=== PATIENT | male | born 1960 | race Caucasian/White ===

== ENCOUNTER 2018-11-18 22:45 | Inpatient (IN) | payer MEDICARE, MEDICAID, SELFPAY ==
--- NOTE | 2018-11-18 22:49 | PDOC.MHCN ---
Date of service: 11/18/18 Time of Service: 22:56 Mental Health Crisis Note Presenting Issue How did you arrive at the ED and why did you come: Pt arrived to the ED via VSP after VSP was serving him a citation to court and he began making comments that he was suicidal Precipitating Factors Pt kept making comments that he was going to kill himself would not contract for safety and attempted to hang himself while in the ER. Comments that Pt made were I don't care if I am here, or in half-way I'm going to kill myself. They will all be at my . It doesn't matter if I'm her, or in half-way I'm going to take my life. While in the ED in his room he was left unattended and when this clinician walked into his room he had his scarf tried tightly around his neck and his face was red and beginning to turn purple. Pt asked me Why did you have to stop me? Pt was speaking to his sister and reportedly was talking about how he was going to try to kill himself again. I addressed this with Vignesh and told him that his conversations need to be appropriate or he would not have this as a privilege. He said he was just speaking to his sister. I informed him it did not matter who he was speaking to if the conversations were not appropriate that he would lose the privilege of speaking to his sister. Disposition BEHAVIOR: Impulsive and tearful and resisting and then cooperative. EYE CONTACT: fair MOOD: depressed and hopeless AFFECT: flat and tearful APPETITE: Pt reports that he goes 3-4 days without eating and then will eat a lot. SLEEP(trouble falling/staying asleep: Pt reports that he is up all night playing video games and then sleeps all day. Plan No beds are avilable tonight so Pt will be moved to Med Surg. There was a huddle with Care Management, nurse, Nursing air cargo ground crew supervisor and Doctor as well as this clinician. [facility] - [facility] - Full [facility] - Octavio - Full Meredith Hidalgo - Beds avaialble but not tonight [place] - Ariel - Not taking any EE's [place] - Luther - Not tonight [facility] - Raj - full Provisional Diagnosis Depressive D/O NOS Signature Clinician's Name/Title: Amanda Ying MS, [facility] Emergency Services Clinician
--- NOTE | 2018-11-18 23:05 | ED.GENADUL_ITS ---
Discharge Plan Disposition Patient Disposition: [facility] INPATIENT Condition: Stable Discharge Details Chief Complaint: PsychEval Clinical Impression: Suicidal ideation Reason For Visit: SUICIDAL IDEATION Admit Date/Time: 11/19/18 02:32 Admit Provider: Florin Murrieta Attending Provider: Florin Murrieta Primary Care Provider: Unknown,Unknown ED Midlevel Provider: Adriana Marte ED Provider: Marianne Carlos Discharge Data Discharge Physician: Marianne Carlos Medical Decision Making 58-year-old male with a history of bipolar disorder and previous suicide attempt who presents with suicidal ideation. Patient placed scissors to his neck threatening suicide after given a police citation for harassment of a family member. Shortly after arrival to ED, patient was found by staff to be pulling a scarf tightly around his neck, his face turning blue and attempting to strangle himself. Multiple staff members went to the room and were able to remove the scar from around his neck. Patient was noted to be breathing normally without any evidence of injury to neck, no conjunctival hemorrhages, no crepitus and speaking full sentences. Patient does not demonstrate good insight into his illness as he did find his behavior to his family to be harrassment and after mental health spoke with his family they are very nervous around him. Pt is medically cleared. D/w mental health. EE completed as pt is a suicide risk based on his behavior today and in the ER. There are no beds available [facility] but there are potential beds at [place] and [place]. [facility] available. Will admit to floor awaiting bed placement. 0230 -- d/w hospitalist - accepts pt for admission. Sister in [place] called to state that he frequently lies about what is going on his life and that their mother killed herself when he was 15, and after she spoke to him in ER [facility], he is continuing saying that he will kill himself. Medical Records Medical records reviewed: Yes I reviewed the patient's medical records. Lab Data Lab results reviewed: Yes I reviewed the patient's lab results. Laboratory Tests Range/Units 11/18/18 11/18/18 11/19/18 23:55 23:55 00:39 WBC (4.4-10.8) k/cumm 6.84 RBC (4.50-6.00) m/cumm 5.08 Hgb (13.5-17.5) g/dL 15.3 Hct (40.0-50.0) % 44.3 MCV (80-95) fL 87.2 MCH (27.0-33.0) pg 30.1 MCHC (32.0-36.0) g/dL 34.5 RDW (11.8-14.1) % 13.5 Plt Count (130-400) x1000/uL 188 MPV (8.0-11.0) fL 11.2 H Immature Gran % 0.1 Neutrophils % 80.9 Lymphocytes % 12.7 Monocytes % 5.8 Eosinophils % 0.1 Basophils % 0.4 Absolute Neutrophils (1.2-6.7) k/cumm 5.52 Absolute Lymphocytes (1.2-3.4) k/cumm 0.87 L Absolute Monocytes (0.11-0.7) k/cumm 0.40 Absolute Eosinophils (0.0-0.7) k/cumm 0.01 Absolute Basophils (0.0-0.2) k/cumm 0.03 Sodium (136-145) mmol/L 139 Potassium (3.5-5.1) mmol/L 3.7 Chloride (98-107) mmol/L 102 Carbon Dioxide (21.0-32.0) mmol/L 25.2 Anion Gap (3-11) mmol/L 11.8 H BUN (7-18) mg/dL 17 Creatinine (0.70-1.30) mg/dL 1.26 Estimated GFR/1.73 m2 (mL/min/1.73m2) 59.20 Glucose (70-100) mg/dL 195 H Calcium (8.5-10.1) mg/dL 9.7 Urine Opiates Screen (Negative) Negative Urine Methadone Screen (Negative) Negative Ur Barbiturates Screen (Negative) Negative Ur Tricyclics Screen (Negative) Negative Ur Amphetamines Screen (Negative) Negative U Benzodiazepines Scrn (Negative) Negative Urine Cocaine Screen (Negative) Negative Ur THC Screen (Negative) Negative Ethyl Alcohol (<3) mg/dL < 3.0 HPI General Mode of arrival: ambulatory . Date/Time Provider Initiated Documentation: 11/18/18 22:46 . Limitations to Documentation: no limitations . Information obtained by: patient . HPI Narrative: Patient is a 58-year-old male with history of bipolar disorder who presents for suicidal ideation. Patient recently was given a citation for questionable harassment of his niece at her gymnasium and and had an outburst with the police chief deputy who gave the patient the citation in which patient grabbed a pair of scissors and held it to his throat with threats of suicide. Patient is also expressed that he does not care if he lives or dies, whether it is in halfway or anywhere it would not stop him from killing himself. Patient had also stated that his family would be attending his soon. Patient expressed that he has been having arguments with his sister and family recently, specifically on Facebook in which he has posted information about family on website which his sister did not agree with. Patient denies any homicidal ideation. He denies any alcohol or drug use. He denies any hallucinations. Patient admits to a previous history of suicide attempt in the s in which she attempted to hang himself. Related Data Home Medications Medication Instructions Recorded Confirmed Unknown [No Known Home Meds] 11/19/18 11/19/18 Allergies Allergy/AdvReac Type Severity Reaction Status Date / Time No Known Allergies Allergy Unverified 11/19/18 00:48 Review of Systems Review of Systems All systems reviewed & are unremarkable except as noted in HPI and below Constitutional Reports as per HPI, Denies chills and Denies fever(s) Eyes Denies blurry vision ENT Denies dizziness, Denies sore throat and Denies throat swelling Cardiovascular Denies chest pain and Denies dyspnea Respiratory Denies cough and Denies dyspnea Gastrointestinal Denies abdominal pain, Denies diarrhea and Denies vomiting Genitourinary Denies hematuria and Denies dysuria Musculoskeletal Denies back pain and Denies numbness Integumentary/Breasts Denies lesions and Denies rash Neurologic Denies dizziness, Denies focal weakness and Denies numbness Psychiatric Reports suicidal ideation Allergic/Immunologic Denies throat swelling [facility] Medical History History of suicide attempt (Chronic) Bipolar disorder (Chronic) Depression (Chronic) Surgical History History of eye surgery (Acute) Family History Mother Suicide Social History Smoking and Tabacco status: Never alcohol intake: never substance use type: does not use Exam Const General: cooperative, healthy appearing and no acute distress HENMT Head: normal to inspection Face and sinus: normal facial exam Eyes General: appearance normal, both eyes and all related structures Pupils: PERRL EOM: EOM intact bilaterally Neck Neck: normal visual inspection Lymphatic: no lymphadenopathy noted Resp Effort & Inspection: normal respiratory effort and able to speak in complete sentences Auscultation: clear to auscultation bilaterally Cardio Rate: regular rate Rhythm: regular rhythm GI Inspection: normal to inspection Palpation: soft, not firm, not rigid and nontender Auscultation: normal bowel sounds Male General Exam: Yes normal external exam Skin General skin exam: no rashes or lesions noted Neuro General: alert, awake and oriented x3 Cognition: normal cognition Speech: speech normal Motor: muscle tone normal throughout Sensory Exam: no sensory deficits noted Extrem General: normal to inspection, full ROM and no edema Psych Appearance: grossly normal Mental Status: mental status grossly normal Speech and Movement: speech and movement normal Affect: anxious affect Attitude: cooperative Thought Content: suicidality Insight: limited Judgment: limited
[2018-11-19] LABS: Abs Immature Grans 0.01 k/cumm (0.0-0.09); Absolute Basophil Count 0.03 k/cumm (0.0-0.2); Absolute Eosinophil Count 0.01 k/cumm (0.0-0.7); Absolute Lymphocyte Count 0.87 k/cumm (1.2-3.4); Absolute Neutrophil Count 5.52 k/cumm (1.2-6.7); Basophils % 0.4; Eosinophils % 0.1; HCT 44.3 % (40.0-50.0); HGB 15.3 g/dL (13.5-17.5); Immature Grans % 0.1; Lymphocytes % 12.7; Mean Corp. HGB Concentration 34.5 g/dL (32.0-36.0); Mean Corpuscular Hemoglobin 30.1 pg (27.0-33.0); Mean Corpuscular Volume 87.2 fL (80-95); Mean Platelet Volume 11.2 fL (8.0-11.0); Monocytes % 5.8; Neutrophils % 80.9; Platelet Count 188 x1000/uL (130-400); RBC 5.08 m/cumm (4.50-6.00); RBC Distribution Width 13.5 % (11.8-14.1); White Blood Cell Count 6.84 k/cumm (4.4-10.8)
--- NOTE | 2018-11-19 00:04 | NUR.NOTE ---
shortly after arrival patient attempted to strangle himself with a personal towel. patient struggled and eventually let go of towel, restraint protocol per [facility] policy initiated. patient has been under 1:1 observer Nursing Note:
[2018-11-19 00:09] LABS: Anion Gap 11.8 mmol/L (3-11); BUN 17 mg/dL (7-18); CO2 25.2 mmol/L (21.0-32.0); CREATININE 1.26 mg/dL (0.70-1.30); Calcium 9.7 mg/dL (8.5-10.1); Chloride 102 mmol/L (98-107); Glucose 195 mg/dL (70-100); Potassium 3.7 mmol/L (3.5-5.1); Sodium 139 mmol/L (136-145)
[2018-11-19 00:10] VITALS: BP 126/85; PULSE 98; RESP 18; TEMP 36.9; O2SAT 98
--- NOTE | 2018-11-19 00:16 | PDOC.ERCMPRO ---
- If Service Date Differs Date of service: 11/19/18 Time of Service: 00:16 Care Management Progress Note Brief Narrative: Vignesh presents with VSP. He was served a citation by [facility] as a member of the community has filed for a restraining order against him. Vignesh held scissors to his neck while at home with VSP present and talked about SI. He was evaluated by SHITAL Patel, and was not able to contract for safety so was therefore transferred to [facility] voluntarily. Upon arriving at [facility] with [facility], P left Vignesh unattended and Vignesh was found to have a scarf tightly around his neck attempting to strangle himself. When SHITAL aPtel, went in to see Vignesh after him attempting to do so he asked why did you stop me?. Due to Vignesh showing impulsive behaviors SHITAL Patel, states he will be EE'd. Vignesh at baseline resides alone in the community, he reports that he is originally from [place]. Vignesh is a JACKSPOOLER client through [facility] and his manager of case is Michael Celis and Mikayla Krause is his counselor. Vignesh states that he has been hospitalized before for Psychiatric difficulties, he reports that he takes no medications at this time. INVOLUNTARY FOR INPATIENT PSYCHIATRIC STABILIZATION: Current behaviors: refer to Acuity Level System: Vignesh has engaged with staff, he has been cooperative. Vignesh has also been impulsive while in the Emergency Department. Huddle Participants:Amanda ([facility]), Giovanni (RN), Nany (RN Special Education Paraprofessional), Dr. Carlos Time and Date: 11/19/18 @ 0020 Safety plan has been established with patient, and care team, to adhere to patient goals, identify restrictions based on behavioral status, address nutrition, and determine allowed personal belongings, tools for hygiene and personal care. Determine level of activity including ambulation, level of supervision, visitors, and determine privileges based on behaviors and level of engagement by pt. SAFETY PLAN: 1. Will remain on suicide precautions and in paper clothes. 2. Will remain in room under direct supervision of one-on-one staff at all times provided by EARLINE, CARLOS automotive collision estimator. 3. May have paper cups, plates, finger foods. 4. Follow [facility] Management of the Admitted Behavioral Health Patient policy. 5. Comfort bath system only. 6. No personal belongings 7. Visitors - None at this time. It has been reported that Vignesh has been threatening his family. 8. Activities - May have coloring supplies such as crayons and paper 9. TV - May have TV and remote if available 10. Bathroom - Bathroom privileges with staff escort. Patient is currently involuntarily at [facility] and seeking inpatient admission when a bed becomes available. [facility] Frontline Terminal Press Operator will continue seeking placement. Please contact the Scoop Filler Junior Php Developer ([phone]) and [facility] Terminal Press Operator ([phone]) for any needed changes in the Safety Plan. Safety plan has been provided to interdepartmental care team including Clinical Coordinator, Nursing Special Education Paraprofessional.
[2018-11-19 00:17] LABS: ETHANOL BLOOD < 3.0 mg/dL (<3)
--- NOTE | 2018-11-19 00:38 | CMPROGNOTE_ITS ---
- If Service Date Differs Date of service: 11/19/18 Time of Service: 00:16 Care Management Progress Note Brief Narrative: Vignesh presents with VSP. He was served a citation by [facility] as a member of the community has filed for a restraining order against him. Vignesh held scissors to his neck while at home with VSP present and talked about SI. He was evaluated by SHITAL Patel, and was not able to contract for safety so was therefore transferred to [facility] voluntarily. Upon arriving at [facility] with [facility], P left Vignesh unattended and Vignesh was found to have a scarf tightly around his neck attempting to strangle himself. When SHITAL Patel, went in to see Vignehs after him attempting to do so he asked why did you stop me?. Due to Vignesh showing impulsive behaviors SHITAL Patel, states he will be EE'd. Vignesh at baseline resides alone in the community, he reports that he is originally from [place]. Vignesh is a AERODYNAMICS TEACHER client through [facility] and his case checker is Michael Celis and Mikayla Krause is his counselor. Vignesh states that he has been hospitalized before for Psychiatric difficulties, he reports that he takes no medications at this time. INVOLUNTARY FOR INPATIENT PSYCHIATRIC STABILIZATION: Current behaviors: refer to Acuity Level System: Vignesh has engaged with staff, he has been cooperative. Vignesh has also been impulsive while in the Emergency Department. Huddle Participants:Amanda ([facility]), Giovanni (RN), Nany (RN Helmet Hat Puncher), Dr. Carlos Time and Date: 11/19/18 @ 0020 Safety plan has been established with patient, and care team, to adhere to patient goals, identify restrictions based on behavioral status, address nutrition, and determine allowed personal belongings, tools for hygiene and personal care. Determine level of activity including ambulation, level of supervision, visitors, and determine privileges based on behaviors and level of engagement by pt. SAFETY PLAN: 1. Will remain on suicide precautions and in paper clothes. 2. Will remain in room under direct supervision of one-on-one staff at all times provided by EARLINE, CARLOS senior cisco network engineer. 3. May have paper cups, plates, finger foods. 4. Follow [facility] Management of the Admitted Behavioral Health Patient policy. 5. Comfort bath system only. 6. No personal belongings 7. Visitors - None at this time. It has been reported that Vignesh has been threatening his family. 8. Activities - May have coloring supplies such as crayons and paper 9. TV - May have TV and remote if available 10. Bathroom - Bathroom privileges with staff escort. Patient is currently involuntarily at [facility] and seeking inpatient admission when a bed becomes available. [facility] Frontline Clean Energy Policy Analyst will continue seeking placement. Please contact the Fire Equipment Inspector Loading Unit Tool Setter ([phone]) and [facility] Clean Energy Policy Analyst ([phone]) for any needed changes in the Safety Plan. Safety plan has been provided to interdepartmental care team including Clinical Coordinator, Nursing Helmet Hat Puncher.
--- NOTE | 2018-11-19 00:41 | NUR.NOTE ---
restraints removed from patient, used toliet. patient to be admitted to behavioral health unit Nursing Note:
[2018-11-19 00:55] LABS: *AMPHETAMINES SCREEN URINE Negative (Negative); *BARBITURATES SCREEN URINE Negative (Negative); *BENZODIAZEPINES SCREEN URINE Negative (Negative); Cannabinoids THC Negative (Negative); Cocaine Screen,Urine Negative (Negative); METHADONE URINE SCREEN Negative (Negative); OPIATES URINE SCREEN Negative (Negative)
[2018-11-19 00:57] LABS: Tricyclic Antidepressants Negative (Negative)
--- NOTE | 2018-11-19 01:28 | NUR.NOTE ---
patient sitting with 1:1 observer, patient speaking on phone with family Nursing Note:
--- NOTE | 2018-11-19 02:10 | PDOC.MHCN_ITS ---
Date of service: 11/18/18 Time of Service: 22:56 Mental Health Crisis Note Presenting Issue How did you arrive at the ED and why did you come: Pt arrived to the ED via VSP after VSP was serving him a citation to court and he began making comments that he was suicidal Precipitating Factors Pt kept making comments that he was going to kill himself would not contract for safety and attempted to hang himself while in the ER. Comments that Pt made were I don't care if I am here, or in skilled nursing I'm going to kill myself. They will all be at my . It doesn't matter if I'm her, or in skilled nursing I'm going to take my life. While in the ED in his room he was left unattended and when this clinician walked into his room he had his scarf tried tightly around his neck and his face was red and beginning to turn purple. Pt asked me Why did you have to stop me? Pt was speaking to his sister and reportedly was talking about how he was going to try to kill himself again. I addressed this with Vignesh and told him that his conversations need to be appropriate or he would not have this as a privilege. He said he was just speaking to his sister. I informed him it did not matter who he was speaking to if the conversations were not appropriate that he would lose the privilege of speaking to his sister. Disposition BEHAVIOR: Impulsive and tearful and resisting and then cooperative. EYE CONTACT: fair MOOD: depressed and hopeless AFFECT: flat and tearful APPETITE: Pt reports that he goes 3-4 days without eating and then will eat a lot. SLEEP(trouble falling/staying asleep: Pt reports that he is up all night playing video games and then sleeps all day. Plan No beds are avilable tonight so Pt will be moved to Med Surg. There was a huddle with Care Management, nurse, Nursing telephone solicitor supervisor and Doctor as well as this clinician. [facility] - Duncan - Full [facility] - Octavio - Full [facility] H[facility] - Beds avaialble but not tonight [place] - Ariel - Not taking any EE's [place] - Luther - Not tonight [facility] - Raj - full Provisional Diagnosis Depressive D/O NOS Signature Clinician's Name/Title: Amanda Ying MS, [facility] Emergency Services Clinician
--- NOTE | 2018-11-19 03:00 | NUR.NOTE ---
patient has been cooperative and report given to med/surge RN Nursing Note:
--- NOTE | 2018-11-19 03:03 | HPE_ITS ---
Date of service: 11/19/18 Time of Service: 03:02 Assessment and Plan (1) Suicide attempt: Current visit: Yes Status: Acute Patient be admitted overnight at [facility] under involuntary admission pending a second psychiatric interview. Recommendation is for him to be placed for inpatient psychiatric treatment due to persistent pervasive thoughts of suicide with high risk for potential for completion of suicide given his recent behavior. (2) Major depression, recurrent: Current visit: Yes Status: Acute Patient will need to be started on antidepressants however because of his history of bipolar disorder judicious selection of appropriate mood stabilizing medications needs to be made under an inpatient psychiatric admission to monitor for any exacerbations of forrest History of Present Illness Chief Complaint: Suicidal behavior, depression Narrative: See Dr. Carlos's thorough ER admission note for details. In summary this 58-year-old male with a history of bipolar disorder and previous suicide attempts who has not been on any medications for his mental health problems and recent history was brought to the emergency department after making suicidal gestures with placing scissors to his neck after he been given a police citation for harassment of a family member. He was brought to the emergency room for further evaluation and referral for inpatient psychiatric treatment. While in the emergency room he attempted to strangle himself with a scarf but the ER staff intervened and were able to remove the scar from around his neck. After removal of the scar if Dr. Carlos found no evidence of injury to his neck and was having normal respirations afterwards. Further information was obtained from his sister who who called from [place] stating that the patient frequently lies about the events in his life and she also revealed that their mother killed herself when t he patient was only 15 years old. Patient continues to make statements indicating that he has intentions of killing himself and for that reason an involuntary admission was placed after an emergency evaluation examination by Dr. Carlos was carried out. Local mental health officials including Amanda Ying as well as [facility] immigration case manager Tomeka Crowley were involved in his evaluation as well. Patient is being admitted overnight to [facility] as there are no inpatient psychiatric beds currently available. Because of been placed to [facility] and to [facility]. Patient has been medically cleared by Dr. Carlos for inpatient psychiatric treatment. Screening labs including CBC, urine drug screen, blood alcohol level, BMP. Urine for drug abuse was negative for methadone, benzodiazepines, cocaine, amphetamines, THC, opiates, barbiturates, TCA. Blood alcohol level is less than 3. BMP was normal with the exception of a glucose level that was elevated at 195. CBC was within normal limits. Review of Systems Review of Systems All systems reviewed & are unremarkable except as noted in HPI and below PFSH Medical History History of suicide attempt (Chronic) Bipolar disorder (Chronic) Depression (Chronic) Surgical History History of eye surgery (Acute) Family History Mother Suicide Social History Smoking and Tabacco status: Never alcohol intake: never substance use type: does not use Meds Home Medications Medication Instructions Recorded Confirmed Type Unknown [No Known Home Meds] 11/19/18 11/19/18 History Allergies Allergy/AdvReac Type Severity Reaction Status Date / Time No Known Allergies Allergy Unverified 11/19/18 00:48 Exam Const General: cooperative and healthy appearing [facility] Head: normal to inspection Face and sinus: normal facial exam Eyes General: appearance normal, both eyes and all related structures Alignment and Position: alignment normal Periorbital: periorbital findings normal Eyelids: eyelids normal Pupils: PERRL EOM: EOM intact bilaterally Neck Neck: normal visual inspection, full ROM, no lymphadenopathy, trachea midline and no JVD Thyroid: thyroid normal Chest Chest: normal inspection of the chest and normal palpation of entire chest wall Resp Effort & Inspection: normal respiratory effort and able to speak in complete sentences Auscultation: clear to auscultation bilaterally Cardio Jugular venous pressure: no JVD Palpation: normal PMI Rate: regular rate Rhythm: regular rhythm Heart Sounds: S1 normal, S2 normal, normal, physiologic split S2 and no murmurs GI Inspection: normal to inspection Palpation: soft, not firm, not rigid and nontender Auscultation: normal bowel sounds Back/Spine/Pelvis Cervical Spine: normal cervical lordosis Thoracic/Lumbar Spine: thoracic and lumbar spine normal to inspection Skin General skin exam: no rashes or lesions noted Neuro General: alert, awake and oriented x3 Cognition: normal cognition Speech: speech normal Motor: muscle tone normal throughout Extrem General: normal to inspection, full ROM and no edema Psych Appearance: well kempt Mental Status: mental status grossly normal (i.e. no delirium, alert and oriented to person/place/circumstance/time) and other (tearful) Speech and Movement: speech and movement normal Mood: anxious mood and other (tearful) Affect: sad and anxious affect Attitude: cooperative and avoids eye contact Thought Process: circumstantial Thought Content: suicidality Insight: poor Judgment: poor Results Labs : 11/18/18 23:55 11/18/18 23:55 Laboratory Results - last 24 hr 11/18/18 11/18/18 11/19/18 23:55 23:55 00:39 WBC 6.84 RBC 5.08 Hgb 15.3 Hct 44.3 MCV 87.2 MCH 30.1 MCHC 34.5 RDW 13.5 Plt Count 188 MPV 11.2 H Immature Gran % 0.1 Neutrophils % 80.9 Lymphocytes % 12.7 Monocytes % 5.8 Eosinophils % 0.1 Basophils % 0.4 Absolute Neutrophils 5.52 Absolute Lymphocytes 0.87 L Absolute Monocytes 0.40 Absolute Eosinophils 0.01 Absolute Basophils 0.03 Sodium 139 Potassium 3.7 Chloride 102 Carbon Dioxide 25.2 Anion Gap 11.8 H BUN 17 Creatinine 1.26 Estimated GFR/1.73 m2 59.20 Glucose 195 H Calcium 9.7 Urine Opiates Screen Negative Urine Methadone Screen Negative Ur Barbiturates Screen Negative Ur Tricyclics Screen Negative Ur Amphetamines Screen Negative U Benzodiazepines Scrn Negative Urine Cocaine Screen Negative Ur THC Screen Negative Ethyl Alcohol < 3.0 Last Vital Signs Temp 36.9 C 11/19/18 00:10 Pulse 98 H 11/19/18 00:10 Resp 18 11/19/18 00:10 BP 126/85 11/19/18 00:10 Pulse Ox 98 11/19/18 00:10
[2018-11-19 03:20] VITALS: BP 118/68; PULSE 68; RESP 24; TEMP 37.2; O2SAT 98
[2018-11-19 07:38] VITALS: BP 116/73; PULSE 65; RESP 16; TEMP 36.8; O2SAT 99
--- NOTE | 2018-11-19 13:12 | PDOC.MHCN ---
Date of service: 11/25/18 Time of Service: 09:54 Mental Health Crisis Note Presenting Issue How did you arrive at the ED and why did you come: Patient was brought to the Ed after telling police he was suicidal. Precipitating Factors Patient was experiencing high levels of stress as a result of arguing with family members and being served with a summons for violating a restraining order from a worker at [employer] multiple times. In the Ed patient attempted to strangle himself and struggled with staff when they attempted to remove the scarf he had tied around his neck. Patient currently denies S/I, and H/I. He makes appropriate eye contact and is fully oriented. Patient does present with some short term memory loss which is typical of his presentation. He is eating and taking fluids, but has declined medication prescribed to help him sleep. Disposition BEHAVIOR: Patient has been polite and cooperating with staff. Patient is manipulative and has not demonstrated complete honesty with this screener . He denies his actions except in regards to his sister and neice. He lacks insight and willingness to engage in community treatment. EYE CONTACT: The Patient made and maintained appropriate eye contact. MOOD: The patient has a mixed mood, expressing some depression, frustration and anxiety. AFFECT: Patient's affect was unremarkable. APPETITE: Patient is eating food and drinking fluids. SLEEP(trouble falling/staying asleep: Mixed. Plan The patient is to kept on EE status until appropriate treatment can be obtained. Signature Clinician's Name/Title: Magdi Gomes BA, [facility].
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
--- NOTE | 2018-11-19 15:42 | PDOC.CMPRO ---
Care Management Progress Note INVOLUNTARY FOR INPATIENT PSYCHIATRIC STABILIZATION: Current behaviors: refer to Acuity Level System: Vignesh has engaged with staff, he has been cooperative. Vignesh has also been impulsive while in the Emergency Department. Huddle Participants: Magdi ([facility]), Adalberto (RN), Kit (RN Lamp Wirer), Santa, (ANIMAL DOCTOR), Sri, (CM), Sahra, (RNCC) Time and Date: 11/19/18 @ 1130 Safety plan has been established with patient, and care team, to adhere to patient goals, identify restrictions based on behavioral status, address nutrition, and determine allowed personal belongings, tools for hygiene and personal care. Determine level of activity including ambulation, level of supervision, visitors, and determine privileges based on behaviors and level of engagement by pt. Vignesh fully engaged with this commercial insurance underwriter, he struggled to absorb some information especially central to limitations of safety planning and timing of process. He had the expectation he might be able to leave by 1200 due to feeling he had presented with good behavior and shown remorse for his actions prior to today. He stated this process makes him feel more like harming himself. He reported he had not slept and appeared to perseverate on certain topics such as his court hearing, care for his felines at home(LEASING REPRESENTATIVE attending to issue), IPOD, phone contact with his sister and his reading glasses. He reported he is currently fighting with his sister, Alma Nunez (reports having another sister named Krystal) and described in detail what he would want said to her when notifying her he is currently at [facility]: Vignesh says he's O.K. and doing fine if you want to talk to him. He described his IPOD in great detail including a charging belt he wears, how it accesses the internet, pictures and country music. CM agreed to consider Vignesh's requests with huddle participants and encouraged Vignesh to continue to show appropriate behavior and build trust with the staff. JIMENA reviewed EE process, 2nd Cert and explained how Vignesh is under the umbrella of [facility] and his disposition would be coordinated by [facility]. CM reviewed safety plan considerations and explained that planning was directly correlated with acuity level. Huddle participants were in agreement Vignesh could be permitted to have his glasses, but will hold off on additional privileges until Vignesh is observed for a longer period of time as he was found to have paper strings in his socks tied in a noose this morning and still appears to be impulsive. Vignesh was talking fast and earnest in his vocal delivery. He interrupted and spoke over this commercial insurance underwriter when his questions were attempted to be answered. JIMENA provided copy of safety plan to Vignesh and his [id number] 2nd certification process and meeting with a [facility] psychiatrist via tele-monitor would be forthcoming. SAFETY PLAN: 1. Will remain on suicide precautions and in paper clothes. 2. Will remain in room under direct supervision of one-on-one staff at all times provided by EARLINE, ADMINISTRATION PROFESSIONAL pen or pencil assembly machine operator. 3. May have paper cups, plates, finger foods. 4. Follow [facility] Management of the Admitted Behavioral Health Patient policy. 5. Comfort bath system only. 6. No personal belongings; may have eyeglasses with expectation they will be removed in event of behavioral escalation 7. No visitors at this time, no phone contact at this time. 8. Activities - May have coloring supplies such as crayons and paper 9. TV - May have TV and remote if available Starla [facility] reports only facility with bed availability is [facility]. Magdi faxed referral. Karina Peck called to report their current milieu is too acute to accept Vignesh at this time as he would require one-on-one support. Patient is currently involuntarily at [facility] and seeking inpatient admission when a bed becomes available. [facility] Frontline Skip Pitman will continue seeking placement. Please contact the Scalp Treatment Operator Stoner Hand ([phone]) and [facility] Skip Pitman ([phone]) for any needed changes in the Safety Plan. Safety plan has been provided to interdepartmental care team including Clinical Coordinator, Nursing Lamp Wirer.
[2018-11-19 16:39] VITALS: BP 166/82; PULSE 81; RESP 18; TEMP 36.8; O2SAT 96
--- NOTE | 2018-11-19 17:27 | CMPROGNOTE_ITS ---
Care Management Progress Note INVOLUNTARY FOR INPATIENT PSYCHIATRIC STABILIZATION: Current behaviors: refer to Acuity Level System: Vignesh has engaged with staff, he has been cooperative. Vignesh has also been impulsive while in the Emergency Department. Huddle Participants: Magdi ([facility]), Adalberto (RN), Kit (RN Measurement Psychologist), Santa, (MAILING MACHINE OPERATOR), Sri, (CM), Sahra, (RNCC) Time and Date: 11/19/18 @ 1130 Safety plan has been established with patient, and care team, to adhere to patient goals, identify restrictions based on behavioral status, address nutrition, and determine allowed personal belongings, tools for hygiene and personal care. Determine level of activity including ambulation, level of supervision, visitors, and determine privileges based on behaviors and level of engagement by pt. Vignesh fully engaged with this rfp writer, he struggled to absorb some information especially central to limitations of safety planning and timing of process. He had the expectation he might be able to leave by 1200 due to feeling he had presented with good behavior and shown remorse for his actions prior to today. He stated this process makes him feel more like harming himself. He reported he had not slept and appeared to perseverate on certain topics such as his court hearing, care for his felines at home(FLOOR CASHIER attending to issue), IPOD, phone contact with his sister and his reading glasses. He reported he is currently fighting with his sister, Alma Nunez (reports having another sister named Krystal) and described in detail what he would want said to her when notifying her he is currently at [facility]: Vignesh says he's O.K. and doing fine if you want to talk to him. He described his IPOD in great detail including a charging belt he wears, how it accesses the internet, pictures and country music. CM agreed to consider Vignesh's requests with huddle participants and encouraged Vignesh to continue to show appropriate behavior and build trust with the staff. JIMENA reviewed EE process, 2nd Cert and explained how Vignesh is under the umbrella of [facility] and his disposition would be coordinated by [facility]. CM reviewed safety plan considerations and explained that planning was directly correlated with acuity level. Huddle participants were in agreement Vignesh could be permitted to have his glasses, but will hold off on additional privileges until Vignesh is observed for a longer period of time as he was found to have paper strings in his socks tied in a noose this morning and still appears to be impulsive. Vignesh was talking fast and earnest in his vocal delivery. He interrupted and spoke over this rfp writer when his questions were attempted to be answered. JIMENA provided copy of safety plan to Vignesh and his [id number] 2nd certification process and meeting with a [facility] psychiatrist via tele-monitor would be forthcoming. SAFETY PLAN: 1. Will remain on suicide precautions and in paper clothes. 2. Will remain in room under direct supervision of one-on-one staff at all times provided by EARLINE, COMSEC MANAGER excavator backhoe operator. 3. May have paper cups, plates, finger foods. 4. Follow [facility] Management of the Admitted Behavioral Health Patient policy. 5. Comfort bath system only. 6. No personal belongings; may have eyeglasses with expectation they will be removed in event of behavioral escalation 7. No visitors at this time, no phone contact at this time. 8. Activities - May have coloring supplies such as crayons and paper 9. TV - May have TV and remote if available Starla [facility] reports only facility with bed availability is [facility]. Magdi faxed referral. Karina Peck called to report their current milieu is too acute to accept Vignesh at this time as he would require one-on-one support. Patient is currently involuntarily at [facility] and seeking inpatient admission when a bed becomes available. [facility] Frontline Substation Inspector will continue seeking placement. Please contact the Audio Visual Arts Director Rate Inserter ([phone]) and [facility] Substation Inspector ([phone]) for any needed changes in the Safety Plan. Safety plan has been provided to interdepartmental care team including Clinical Coordinator, Nursing Measurement Psychologist.
[2018-11-19 19:51] VITALS: BP 152/99; PULSE 64; RESP 19; TEMP 36.4; O2SAT 97
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
[2018-11-20 00:12] VITALS: BP 148/89; PULSE 72; RESP 18; TEMP 36.2; O2SAT 98
[2018-11-20 03:22] VITALS: BP 115/62; PULSE 69; RESP 16; TEMP 36.8; O2SAT 96
--- NOTE | 2018-11-20 06:11 | NUR.NOTE ---
Nursing Note: At approximately 0415 cadre called me into the room. I found pt sitting on edge of his bed crying, he stood to talk to me but did not approach me. He is very upset about a few things: crying because his cats are alone and may not be cared for, angry his sister may have access to his house and ipod (made reference to it being illegal for her to use his ipod to remove something from social media), is frustrated about the flow of his care, speed of decisions being made and process necessary, concerned that staff are ignoring him, that he will be here too long or longer than someone originally promised him (will his time here count towards the promised 2 weeks to get better - I do not know who promised him this). He was fixated on each of these thoughts, and when I answered one question he would ask the same thing again or go back to another we had just discussed. I left the room once and he came to the doorway, past the cadre and stood there repeating these questions. I was not able to redirect him with normal social cues nor with being more direct. He stopped fixating and sat back down on his bed when I was heavily direct and told him that I needed him to sit on his bed, I had some work to do, I have relayed all of his concerns to the charge nurse and he will discuss all of this with his mental health team after 8 am. I then left the room and pt remained on his bed and watched TV. He has been calm and not crying since, it is now 0620. Charge nurse notified of all of his concerns and behavior and I will hand off written notes along with careplan to [facility] nurse.
--- NOTE | 2018-11-20 09:27 | W.INMHPGNOTE ---
Date of service: 11/20/18 Time of Service: 09:27 Mental Health Crisis Note Presenting Issue How did you arrive at the ED and why did you come: Vignesh arrived at [facility] due to a suicide attempt. He was emotionally dysregulated and made another suicide attempt upon being admitted to the emergency room. An application for involuntary treatment was filed with the Department of Mental Health. That application was certified appropriately by a psychiatrist on 11-19-18. Precipitating Factors Vignesh denies current suicidal ideation, planning, or intent. He typically perseverates on emotions and is going through some anxiety about family relationships. These family stressors seem to be on-going. Perseverative thought patterns with impulsive decisions and behaviors have led to further misunderstandings, poor communication, and some difficulties with engaging in community or treatment resources offered to him. Disposition BEHAVIOR: animated, perseverative, repetitious, restless EYE CONTACT: good MOOD: anxious AFFECT: slightly elevated/easily agitated APPETITE: fair SLEEP(trouble falling/staying asleep: reports irregular sleep patterns mostly related to falling asleep Plan Vignesh will remain at [facility] until bed placement is available. He will discuss community resources and work with SHIP'S MASTER case workers through the weekend to help him create a routine of programming he can engage in that will help him cope with his anxiety and anger that relates to stressors in his life he has difficulty coping with. This will help him with increasing engagement in treatment resources that can be a part of his safety plan needed. From this, it is hoped that he may be able to be discharged next week if bed placement continues to be a challenge. For now, Taty from [facility] reports he is too acute for their unit, Millie from [facility] is unable to offer a bed, [facility] is not accepting admissions to psych, [facility] is full ([facility])(, Shilpa from [facility] is unable to take a level one bed at this time. Signature Clinician's Name/Title: Navjot Rico MA [facility]
--- NOTE | 2018-11-20 09:46 | MHPN_ITS ---
Date of service: 11/20/18 Time of Service: 09:27 Mental Health Crisis Note Presenting Issue How did you arrive at the ED and why did you come: Vignesh arrived at [facility] due to a suicide attempt. He was emotionally dysregulated and made another suicide attempt upon being admitted to the emergency room. An application for involuntary treatment was filed with the Department of Mental Health. That application was certified appropriately by a psychiatrist on 11-19-18. Precipitating Factors Vignesh denies current suicidal ideation, planning, or intent. He typically perseverates on emotions and is going through some anxiety about family relationships. These family stressors seem to be on-going. Perseverative thought patterns with impulsive decisions and behaviors have led to further misunderstandings, poor communication, and some difficulties with engaging in community or treatment resources offered to him. Disposition BEHAVIOR: animated, perseverative, repetitious, restless EYE CONTACT: good MOOD: anxious AFFECT: slightly elevated/easily agitated APPETITE: fair SLEEP(trouble falling/staying asleep: reports irregular sleep patterns mostly related to falling asleep Plan Vignesh will remain at [facility] until bed placement is available. He will discuss community resources and work with SENIOR PRODUCT MANAGER case workers through the weekend to help him create a routine of programming he can engage in that will help him cope with his anxiety and anger that relates to stressors in his life he has difficulty coping with. This will help him with increasing engagement in treatment resources that can be a part of his safety plan needed. From this, it is hoped that he may be able to be discharged next week if bed placement continues to be a challenge. For now, Taty from [facility] reports he is too acute for their unit, Millie from [facility] is unable to offer a bed, [facility] is not accepting admissions to psych, [facility] is full (Meena)(, Shilpa from [facility] is unable to take a level one bed at this time. Signature Clinician's Name/Title: Navjot Rico MA [facility]
--- NOTE | 2018-11-20 12:25 | PHARADMIT ---
Addendum entered by Maury Boyle III 11/25/18 16:17: Remains on EE Status, awaiting transfer to psych facility. VS-OK No Labs, refused troponin, Has begun to cooperate and eat. Original Note: Addendum entered by Maury Boyle III 11/24/18 14:16: Patient here on E status. Refusing to eat or drink. CM working diligently towards placement at a psych facility. VS-OK HR-105 No Labs Taking no medication at this time. Original Note: Admission Pharmacy Clinical Review suicidal ideation Code Status Full Code Current Weight 73.7 kg Renally Cleared and Narrow Therapeutic Index Meds Crcl ~65.00 mL/min current meds okay QTc Value / Action Taken n/a BP Control, Fever BP 115/62 afebrile Electrolytes reviewed within normal limits DVT Prophylaxis none Opiate Usage / Scheduled Bowel Regimen Ordered no/prn Plt/SCr for Heparin / Enoxaparin plt 188 SCr 1.26 INR for Warfarin n/a H/H stable, WBC/Bands h/h 15.3/44.3 wbc 6.84 Antibiotic appropriateness n/a Cultures and Sensitivities n/a Surgical ABX d/c within 24 hr n/a DM control / Insulin Dosing BG 195 none Heart Failure (Check EF%) (TRIXIE's, B-Block, Diuretics) none IV to PO Switch n/a Home Meds Reviewed no known home meds Home Meds Not Ordered no known home meds Comments waiting for placement
[2018-11-20] MEDS: Acetaminophen 325 MG TAB PO (13:25)
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
--- NOTE | 2018-11-20 14:17 | W.PM.PROGNOT ---
Documented by User: Shilpa Morgan NP 11/20/18 14:32 Date of Service Date of service: 11/20/18 Time of Service: 14:21 Assessment and Plan (1) Major depression, recurrent: Start date: 11/20/18 Start time: 14:19 Current visit: Yes Status: Acute Patient will need to be started on antidepressants however because of his history of bipolar disorder judicious selection of appropriate mood stabilizing medications needs to be made under an inpatient psychiatric admission to monitor for any exacerbations of forrest (2) Suicide attempt: Start date: 11/20/18 Start time: 14:19 Current visit: Yes Status: Acute admitted to [facility] under involuntary admission pending a bed in psych facility. Recommendation is for him to be placed for inpatient psychiatric treatment due to persistent pervasive thoughts of suicide with high risk for potential for completion of suicide given his recent behavior. (3) Urine finding: Start date: 11/20/18 Start time: 14:20 Current visit: Yes Status: Acute c/o burning with urination, U/A ordered, will follow up (4) Discharge planning issues: Start date: 11/20/18 Start time: 14:20 Current visit: Yes Status: Acute recommend placement in psych facility Subjective Patient reports: feels better Interval history since last seen: 58-year-old male with a history of bipolar disorder and previous suicide attempts who has not been on any medications for his mental health problems and recent history was brought to the emergency department after making suicidal gestures with placing scissors to his neck after he been given a police citation for harassment of a family member. He then attempted to strangle himself in the ED with a scarf. He was placed on involuntary admission for referral to inpatient psychiatric treatment. Patient has not been sleeping, he has not been prescribed any medications and is currently not receiving medications. Patient was not willing to go voluntary. 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 Yesterday he took his draw string out of his paper gown and fashioned into a noose and hid it in his sock. Today he states he is feeling better. Denies SI. He concentrates on one topic and continues with it until done despite being asked questions. He did c/o burning on urination. Denies sexual activity, denies drainage, UDS was done in ED, so I have ordered a U/A, unlikely this is an infection given hx of manipulation. We are waiting placement at this time. Exam Const General: cooperative and healthy appearing HENMT Head: normal to inspection Face and sinus: normal facial exam Eyes General: appearance normal, both eyes and all related structures Alignment and Position: alignment normal Periorbital: periorbital findings normal Eyelids: eyelids normal Pupils: PERRL EOM: EOM intact bilaterally Neck Neck: normal visual inspection, full ROM, no lymphadenopathy, trachea midline and no JVD Thyroid: thyroid normal Chest Chest: normal inspection of the chest and normal palpation of entire chest wall Resp Effort & Inspection: normal respiratory effort and able to speak in complete sentences Auscultation: clear to auscultation bilaterally Cardio Jugular venous pressure: no JVD Palpation: normal PMI Rate: regular rate Rhythm: regular rhythm Heart Sounds: S1 normal, S2 normal, normal, physiologic split S2 and no murmurs GI Inspection: normal to inspection Palpation: soft, not firm, not rigid and nontender Auscultation: normal bowel sounds Back/Spine/Pelvis Cervical Spine: normal cervical lordosis Thoracic/Lumbar Spine: thoracic and lumbar spine normal to inspection Skin General skin exam: no rashes or lesions noted Neuro General: alert, awake and oriented x3 Cognition: normal cognition Speech: speech normal Motor: muscle tone normal throughout Extrem General: normal to inspection, full ROM and no edema Psych Appearance: well kempt Mental Status: other (tearful) Speech and Movement: speech and movement normal Mood: anxious mood, manic mood and other (tearful) Affect: sad, animated and anxious affect Attitude: cooperative and avoids eye contact Thought Process: circumstantial and confabulating Thought Content: obsessions and suicidality Insight: poor Judgment: poor Objective Objective Clinical Data: Vital Signs Temperature 36.8 C 11/20/18 03:22 Temperature Source Skin 11/20/18 03:22 Pulse 69 11/20/18 03:22 Pulse Rhythm Regular 11/20/18 11:34 Respiratory Rate 16 11/20/18 03:22 Respiratory Effort 11/20/18 11:34 Respiratory Depth Normal 11/20/18 11:34 Respiratory Pattern Normal 11/20/18 11:34 Blood Pressure 115/62 11/20/18 03:22 Pulse Oximetry 96 11/20/18 03:22 Oxygen Delivery Method Room Air 11/20/18 03:22 Oxygen Flow Rate 0 11/20/18 03:22 Pain Level 1 11/20/18 13:25 Intake & Output 11/19/18 11/20/18 11/20/18 23:59 11:59 23:59 Intake Total 480 / 480 730 / 970 240 / 970 Balance 480 / 480 730 / 970 240 / 970 Weight 73.7 kg Intake: Oral 480 / 480 730 / 970 240 / 970 Other: Urine Color Yellow Urine Appearance Clear Clear Comment UOP x 1 reported. uop x 1. ind in room Stool Size Moderate Stool Characteristics Soft Formed Voiding Methods Toilet Toilet Laboratory Results WBC 6.84 k/cumm (4.4-10.8) 11/18/18 23:55 RBC 5.08 m/cumm (4.50-6.00) 11/18/18 23:55 Hgb 15.3 g/dL (13.5-17.5) 11/18/18 23:55 Hct 44.3 % (40.0-50.0) 11/18/18 23:55 MCV 87.2 fL (80-95) 11/18/18 23:55 MCH 30.1 pg (27.0-33.0) 11/18/18 23:55 MCHC 34.5 g/dL (32.0-36.0) 11/18/18 23:55 RDW 13.5 % (11.8-14.1) 11/18/18 23:55 Plt Count 188 x1000/uL (130-400) 11/18/18 23:55 MPV 11.2 fL (8.0-11.0) H 11/18/18 23:55 Immature Gran % 0.1 11/18/18 23:55 Neutrophils % 80.9 11/18/18 23:55 Lymphocytes % 12.7 11/18/18 23:55 Monocytes % 5.8 11/18/18 23:55 Eosinophils % 0.1 11/18/18 23:55 Basophils % 0.4 11/18/18 23:55 Absolute Neutrophils 5.52 k/cumm (1.2-6.7) 11/18/18 23:55 Absolute Lymphocytes 0.87 k/cumm (1.2-3.4) L 11/18/18 23:55 Absolute Monocytes 0.40 k/cumm (0.11-0.7) 11/18/18 23:55 Absolute Eosinophils 0.01 k/cumm (0.0-0.7) 11/18/18 23:55 Absolute Basophils 0.03 k/cumm (0.0-0.2) 11/18/18 23:55 Sodium 139 mmol/L (136-145) 11/18/18 23:55 Potassium 3.7 mmol/L (3.5-5.1) 11/18/18 23:55 Chloride 102 mmol/L (98-107) 11/18/18 23:55 Carbon Dioxide 25.2 mmol/L (21.0-32.0) 11/18/18 23:55 Anion Gap 11.8 mmol/L (3-11) H 11/18/18 23:55 BUN 17 mg/dL (7-18) 11/18/18 23:55 Creatinine 1.26 mg/dL (0.70-1.30) 11/18/18 23:55 Estimated GFR/1.73 m2 59.20 (mL/min/1.73m2) 11/18/18 23:55 Glucose 195 mg/dL (70-100) H 11/18/18 23:55 Calcium 9.7 mg/dL (8.5-10.1) 11/18/18 23:55 TSH 2.40 uIU/mL (0.358-3.74) 11/18/18 23:55 Urine Opiates Screen Negative (Negative) 11/19/18 00:39 Urine Methadone Screen Negative (Negative) 11/19/18 00:39 Ur Barbiturates Screen Negative (Negative) 11/19/18 00:39 Ur Tricyclics Screen Negative (Negative) 11/19/18 00:39 Ur Amphetamines Screen Negative (Negative) 11/19/18 00:39 U Benzodiazepines Scrn Negative (Negative) 11/19/18 00:39 Urine Cocaine Screen Negative (Negative) 11/19/18 00:39 Ur THC Screen Negative (Negative) 11/19/18 00:39 Ethyl Alcohol < 3.0 mg/dL (<3) 11/18/18 23:55 Documented by User: Raymond Jones MD 11/21/18 17:54
[2018-11-20 14:20] LABS: Bilirubin Negative (Negative); Blood Negative (Negative); Clarity Clear; Glucose 100 mg/dL (Negative); Ketones Trace mg/dL (Negative); Leukocyte Esterase Negative (Negative); Nitrite Negative (Negative); Specific Gravity >= 1.030 (1.005-1.025)
[2018-11-20 15:35] VITALS: BP 139/71; PULSE 83; RESP 19; TEMP 36.7; O2SAT 95
--- NOTE | 2018-11-20 16:01 | NUR.NOTE ---
Nursing Note: went to check patient again, asked him how his headacahe was, or if he had any other complaints, He stated that his headache had resolved and he had no complaints of pain elsewhere
[2018-11-20 19:08] VITALS: BP 109/69; PULSE 70; RESP 18; TEMP 36.2; O2SAT 98
--- NOTE | 2018-11-20 21:16 | PDOC.MHCN ---
Date of service: 11/20/18 Time of Service: 21:17 Mental Health Crisis Note Presenting Issue How did you arrive at the ED and why did you come: Vignesh arrived at [facility] due to a suicide attempt. He was emotionally dysregulated and made another suicide attempt upon being admitted to the emergency room. An application for involuntary treatment was filed with the Department of Mental Health. That application was certified appropriately by a psychiatrist on 11-19-18. Precipitating Factors Vignesh reports some frustration with his Taco Maker early last week, family conflict, and negative community interactions as precipitating factors to his suicidal behavior. He denies SI/HI and stated he is serious about starting to engage in more therapeutic groups [facility] has to offer. However, as the conversation continued he stated, When Thursday rolls around I am not going to say that I can be safe at home, but I can say that I will try. Disposition BEHAVIOR: The client's behavior was appropriate. He was reserved and polite. Very talkative. Weepy at times when conversation content was emotionally charged. EYE CONTACT: Excellent eye contact. MOOD: Pleasant and cooperative. AFFECT: Animated and engaged. APPETITE: Client shared he had eaten a lot over the course of the day. SLEEP(trouble falling/staying asleep: No comment. Plan Vignesh will remain on involuntary status until a bed is found. A psychiatric placement will continue to be sought. Currently, [facility] has no beds or anticipated discharges, [facility] [place] [facility], [facility]--no beds, [facility] is not expecting a discharge until Thursday, [facility] has no beds, and [facility] has no bed availability. WATERSHED MANAGER staff will continue to assess Vignesh and support him in stabilization and explore outpatient therapeutic resource options. Signature Clinician's Name/Title: Ysabel Pate BA WATERSHED MANAGER Taco Maker
--- NOTE | 2018-11-20 21:51 | PDOC.MHCN_ITS ---
Date of service: 11/20/18 Time of Service: 21:17 Mental Health Crisis Note Presenting Issue How did you arrive at the ED and why did you come: Vignesh arrived at [facility] due to a suicide attempt. He was emotionally dysregulated and made another suicide attempt upon being admitted to the emergency room. An application for involuntary treatment was filed with the Department of Mental Health. That application was certified appropriately by a psychiatrist on 11-19-18. Precipitating Factors Vignesh reports some frustration with his Insole Reinforcer early last week, family conflict, and negative community interactions as precipitating factors to his suicidal behavior. He denies SI/HI and stated he is serious about starting to engage in more therapeutic groups [facility] has to offer. However, as the conversation continued he stated, When Thursday rolls around I am not going to say that I can be safe at home, but I can say that I will try. Disposition BEHAVIOR: The client's behavior was appropriate. He was reserved and polite. Very talkative. Weepy at times when conversation content was emotionally charged. EYE CONTACT: Excellent eye contact. MOOD: Pleasant and cooperative. AFFECT: Animated and engaged. APPETITE: Client shared he had eaten a lot over the course of the day. SLEEP(trouble falling/staying asleep: No comment. Plan Vignesh will remain on involuntary status until a bed is found. A psychiatric placement will continue to be sought. Currently, [facility] has no beds or anticipated discharges, [facility] has no beds, [facility]--no beds, [facility] is not expecting a discharge until Thursday, [facility] has no beds, and [facility] has no bed availability. PERINATAL NURSE staff will continue to assess Vignesh and support him in stabilization and explore outpatient therapeutic resource options. Signature Clinician's Name/Title: Ysabel Pate BA PERINATAL NURSE Insole Reinforcer
[2018-11-21] MEDS: Acetaminophen 325 MG TAB PO (02:38)
[2018-11-21 03:25] VITALS: BP 111/70; PULSE 63; RESP 16; TEMP 36.6; O2SAT 97
[2018-11-21 07:54] VITALS: BP 112/75; PULSE 58; RESP 20; TEMP 36.4; O2SAT 97
[2018-11-21 11:05] VITALS: BP 121/68; PULSE 56; RESP 20; TEMP 36.5; O2SAT 96
--- NOTE | 2018-11-21 14:28 | PDOC.CMPRO ---
Care Management Progress Note Care Management Progress Note INVOLUNTARY FOR INPATIENT PSYCHIATRIC STABILIZATION: Vignesh's presentation has been consistent throughout his stay and is likely close to his baseline per historical reports. Due to Vignesh's impulsivity and patterns of behavioral responses and emotional triggers, his safety plan will remain consistent at this time and further privileges will not be permitted. CM continues to consider Vignesh's requests with huddle participants and continues to encourage Vignesh to continue to show appropriate behavior and build trust with staff. Due to high acuity and sustained interpersonal communication issues and emotional presentation it is believed Vignesh has not shown acceptable stabilization to increase privileges, thus no changes to safety plan at this time. Huddle Participants: Navjot ([facility]), Jaye(RN Technology Infusion Specialist), Sri, (CM), Sahra, (RNCC) Safety plan has been established with patient, and care team, to adhere to patient goals, identify restrictions based on behavioral status, address nutrition, and determine allowed personal belongings, tools for hygiene and personal care. Determine level of activity including ambulation, level of supervision, visitors, and determine privileges based on behaviors and level of engagement by patient. Vignesh will remain at [facility] until bed placement is available. He will continue to discuss community resources and work with SUPERVISOR ASSEMBLY STOCK case workers (Q12) through the weekend to help him create a routine of programming he can engage in that will help him cope with his anxiety and anger that relates to stressors in his life he has difficulty coping with. This will help him with increasing engagement in treatment resources that can be a part of his safety plan needed. From this, it is hoped that he may be able to be discharged next week if bed placement continues to be a challenge. SAFETY PLAN: 1. Will remain on suicide precautions and in paper clothes. 2. Will remain in room under direct supervision of one-on-one staff at all times provided by EARLINE, COT ASSEMBLER senior policy associate. 3. May have paper cups, plates, finger foods. 4. Follow [facility] Management of the Admitted Behavioral Health Patient policy. 5. Comfort bath system only. 6. No personal belongings; may have eyeglasses with expectation they will be removed in event of behavioral escalation 7. No visitors at this time, no phone contact at this time. 8. Activities - May have coloring supplies such as crayons and paper 9. TV - May have TV and remote if available Bed Availability: Per SUPERVISOR ASSEMBLY STOCK: Vignesh will remain on involuntary status until a bed is found. A psychiatric placement will continue to be sought. Currently, [facility] has no beds or anticipated discharges, [facility] has no beds, [facility]--no beds, [facility] is not expecting a discharge until Thursday, [facility] has no beds, and [facility] has no bed availability. SUPERVISOR ASSEMBLY STOCK staff will continue to assess Vignesh and support him in stabilization and explore outpatient therapeutic resource options. Patient is currently involuntarily at [facility] and seeking inpatient admission when a bed becomes available. [facility] Frontline Sugar Cane Farm Manager will continue seeking placement. Please contact the Sugar Cane Farm Manager Budget Specialist ([phone]) and [facility] Sugar Cane Farm Manager ([phone]) for any needed changes in the Safety Plan. Safety plan has been provided to interdepartmental care team including Clinical Coordinator, Nursing Technology Infusion Specialist.
--- NOTE | 2018-11-21 14:47 | CMPROGNOTE_ITS ---
Care Management Progress Note Care Management Progress Note INVOLUNTARY FOR INPATIENT PSYCHIATRIC STABILIZATION: Vignesh's presentation has been consistent throughout his stay and is likely close to his baseline per historical reports. Due to Vignesh's impulsivity and patterns of behavioral responses and emotional triggers, his safety plan will remain consistent at this time and further privileges will not be permitted. CM continues to consider Vignesh's requests with huddle participants and continues to encourage Vignesh to continue to show appropriate behavior and build trust with staff. Due to high acuity and sustained interpersonal communication issues and emotional presentation it is believed Vignesh has not shown acceptable stabilization to increase privileges, thus no changes to safety plan at this time. Huddle Participants: Navjot ([facility]), Jaye(RN Maintenance Carpenter), Sri, (CM), Sahra, (RNCC) Safety plan has been established with patient, and care team, to adhere to patient goals, identify restrictions based on behavioral status, address nutrition, and determine allowed personal belongings, tools for hygiene and personal care. Determine level of activity including ambulation, level of supervision, visitors, and determine privileges based on behaviors and level of engagement by patient. Vignesh will remain at [facility] until bed placement is available. He will continue to discuss community resources and work with TRAVEL OCCUPATIONAL THERAPIST case workers (Q12) through the weekend to help him create a routine of programming he can engage in that will help him cope with his anxiety and anger that relates to stressors in his life he has difficulty coping with. This will help him with increasing engagement in treatment resources that can be a part of his safety plan needed. From this, it is hoped that he may be able to be discharged next week if bed placement continues to be a challenge. SAFETY PLAN: 1. Will remain on suicide precautions and in paper clothes. 2. Will remain in room under direct supervision of one-on-one staff at all times provided by EARLINE, CAN REPAIRER phone operator. 3. May have paper cups, plates, finger foods. 4. Follow [facility] Management of the Admitted Behavioral Health Patient policy. 5. Comfort bath system only. 6. No personal belongings; may have eyeglasses with expectation they will be removed in event of behavioral escalation 7. No visitors at this time, no phone contact at this time. 8. Activities - May have coloring supplies such as crayons and paper 9. TV - May have TV and remote if available Bed Availability: Per TRAVEL OCCUPATIONAL THERAPIST: Vignesh will remain on involuntary status until a bed is found. A psychiatric placement will continue to be sought. Currently, [facility] has no beds or anticipated discharges, [facility] has no beds, [facility]--no beds, [facility] is not expecting a discharge until Thursday, [facility] has no beds, and [facility] has no bed availability. TRAVEL OCCUPATIONAL THERAPIST staff will continue to assess Vignesh and support him in stabilization and explore outpatient therapeutic resource options. Patient is currently involuntarily at [facility] and seeking inpatient admission when a bed becomes available. [facility] Frontline Tailor Helper will continue seeking placement. Please contact the Auditor Supervisor Facilities Maintenance Manager ([phone]) and [facility] Tailor Helper ([phone]) for any needed changes in the Safety Plan. Safety plan has been provided to interdepartmental care team including Clinical Coordinator, Nursing Maintenance Carpenter.
[2018-11-21 15:30] VITALS: BP 123/76; PULSE 65; RESP 18; TEMP 37; O2SAT 97
--- NOTE | 2018-11-21 18:00 | PGE_ITS ---
Date of Service Date of service: 11/21/18 Time of Service: 17:55 Assessment and Plan (1) Suicide attempt: Current visit: Yes Status: Acute Involuntary admission for 2 suicidal gestures as noted above, currently under evaluation by mental health for potential placement versus safety for discharge. Continue to monitor with one-to-one observation, and current suicide precautions. Will await final evaluation by mental health. Subjective Interval history since last seen: 58-year-old male with a history of bipolar disorder, as well as depression with previous suicide attempts, admitted from [facility] Emergency Department on 11/19 following a suicide attempt. Mr. Alaniz has psychiatric history as noted above, and has not been on any medications for his mental health problems. He was seen in the ED after making suicidal gestures while placing scissors to his neck after being issued a citation by the police for harassment of a family member. He then attempted to strangle himself in the ED with a scarf. He was placed on involuntary admission for referral to inpatient psychiatric treatment. Patient appears improved, now denying any suicidality. Mental Health and Care Management actively following. No apparent placement options today. Exam Narrative Exam Narrative: General: Patient appears comfortable, AAOX3, NAD Psych: Normal mood and affect. Objective Objective Clinical Data: Vital Signs Temperature 37 C 11/21/18 15:30 Temperature Source Tympanic 11/21/18 15:30 Pulse 65 11/21/18 15:30 Pulse Rhythm Regular 11/21/18 17:48 Respiratory Rate 18 11/21/18 15:30 Respiratory Effort 11/21/18 17:48 Respiratory Depth Normal 11/21/18 17:48 Respiratory Pattern Normal 11/21/18 17:48 Blood Pressure 123/76 11/21/18 15:30 Pulse Oximetry 97 11/21/18 15:30 Oxygen Delivery Method Room Air 11/21/18 15:30 Oxygen Flow Rate 0 11/21/18 15:30 Pain Level 0 11/21/18 15:30 Comment 11/21/18 03:25 Intake & Output 11/20/18 11/21/18 11/21/18 23:59 11:59 23:59 Intake Total 720 / 1450 240 / 490 250 / 490 Balance 720 / 1450 240 / 490 250 / 490 Intake: Oral 720 / 1450 240 / 490 250 / 490 Other: Urine Color Yellow Urine Appearance Clear Clear Comment urine x1 Voiding Methods Toilet Toilet Toilet Laboratory Results WBC 6.84 k/cumm (4.4-10.8) 11/18/18 23:55 RBC 5.08 m/cumm (4.50-6.00) 11/18/18 23:55 Hgb 15.3 g/dL (13.5-17.5) 11/18/18 23:55 Hct 44.3 % (40.0-50.0) 11/18/18 23:55 MCV 87.2 fL (80-95) 11/18/18 23:55 MCH 30.1 pg (27.0-33.0) 11/18/18 23:55 MCHC 34.5 g/dL (32.0-36.0) 11/18/18 23:55 RDW 13.5 % (11.8-14.1) 11/18/18 23:55 Plt Count 188 x1000/uL (130-400) 11/18/18 23:55 MPV 11.2 fL (8.0-11.0) H 11/18/18 23:55 Immature Gran % 0.1 11/18/18 23:55 Neutrophils % 80.9 11/18/18 23:55 Lymphocytes % 12.7 11/18/18 23:55 Monocytes % 5.8 11/18/18 23:55 Eosinophils % 0.1 11/18/18 23:55 Basophils % 0.4 11/18/18 23:55 Absolute Neutrophils 5.52 k/cumm (1.2-6.7) 11/18/18 23:55 Absolute Lymphocytes 0.87 k/cumm (1.2-3.4) L 11/18/18 23:55 Absolute Monocytes 0.40 k/cumm (0.11-0.7) 11/18/18 23:55 Absolute Eosinophils 0.01 k/cumm (0.0-0.7) 11/18/18 23:55 Absolute Basophils 0.03 k/cumm (0.0-0.2) 11/18/18 23:55 Sodium 139 mmol/L (136-145) 11/18/18 23:55 Potassium 3.7 mmol/L (3.5-5.1) 11/18/18 23:55 Chloride 102 mmol/L (98-107) 11/18/18 23:55 Carbon Dioxide 25.2 mmol/L (21.0-32.0) 11/18/18 23:55 Anion Gap 11.8 mmol/L (3-11) H 11/18/18 23:55 BUN 17 mg/dL (7-18) 11/18/18 23:55 Creatinine 1.26 mg/dL (0.70-1.30) 11/18/18 23:55 Estimated GFR/1.73 m2 59.20 (mL/min/1.73m2) 11/18/18 23:55 Glucose 195 mg/dL (70-100) H 11/18/18 23:55 Calcium 9.7 mg/dL (8.5-10.1) 11/18/18 23:55 TSH 2.40 uIU/mL (0.358-3.74) 11/18/18 23:55 Urine Color Yellow (Yellow) 11/20/18 14:00 Urine Clarity Clear 11/20/18 14:00 Urine pH 6.0 (5-8) 11/20/18 14:00 Ur Specific [place] >= 1.030 (1.005-1.025) H 11/20/18 14:00 Urine Protein Negative mg/dL (Negative) 11/20/18 14:00 Urine Ketones Trace mg/dL (Negative) H 11/20/18 14:00 Urine Blood Negative (Negative) 11/20/18 14:00 Urine Nitrite Negative (Negative) 11/20/18 14:00 Urine Bilirubin Negative (Negative) 11/20/18 14:00 Urine Urobilinogen 2.0 EU/dL (Up TO 0.2) H 11/20/18 14:00 Ur Leukocyte Esterase Negative (Negative) 11/20/18 14:00 Urine Glucose 100 mg/dL (Negative) 11/20/18 14:00 Urine Opiates Screen Negative (Negative) 11/19/18 00:39 Urine Methadone Screen Negative (Negative) 11/19/18 00:39 Ur Barbiturates Screen Negative (Negative) 11/19/18 00:39 Ur Tricyclics Screen Negative (Negative) 11/19/18 00:39 Ur Amphetamines Screen Negative (Negative) 11/19/18 00:39 U Benzodiazepines Scrn Negative (Negative) 11/19/18 00:39 Urine Cocaine Screen Negative (Negative) 11/19/18 00:39 Ur THC Screen Negative (Negative) 11/19/18 00:39 Ethyl Alcohol < 3.0 mg/dL (<3) 11/18/18 23:55
--- NOTE | 2018-11-21 18:16 | PDOC.MHCN ---
Date of service: 11/21/18 Time of Service: 09:00 Mental Health Crisis Note Presenting Issue How did you arrive at the ED and why did you come: Vignesh arrived at [facility] due to a suicide attempt. He was emotionally dysregulated and made another suicide attempt upon being admitted to the emergency room. An application for involuntary treatment was filed with the Department of Mental Health. That application was certified appropriately by a psychiatrist on 11-19-18. Precipitating Factors Currently the client denies HI/SI. His social interactions and communication skills are lacking. His body language is animated but atypical The client spoke extensively about his cats and making sure they are being fed. He also spoke at length about his intentions of engaging in more therapeutic groups and increasing the frequency of his therapy appointments. These subjects are appearing to become perseverative in nature. Disposition BEHAVIOR: Appropriate. EYE CONTACT: Good eye contact. MOOD: Pleasant and cooperative. AFFECT: Engaged and animated. APPETITE: Good appetite. SLEEP(trouble falling/staying asleep: Client reported he slept well during the night. Plan Vignesh will remain on involuntary status until a bed is found. A psychiatric placement will continue to be sought. Currently, [facility] has no beds or anticipated discharges, [facility] has no beds, [facility]--no beds, [facility] is not expecting a discharge until Thursday, [facility] has no beds, and [facility] has no bed availability. SHAKE LOADER staff will continue to assess Vignesh and support him in stabilization and explore outpatient therapeutic resource options. Signature Clinician's Name/Title: Ysabel Pate BA SHAKE LOADER Assembler Hydraulic Backhoe
--- NOTE | 2018-11-21 18:47 | PDOC.MHCN_ITS ---
Date of service: 11/21/18 Time of Service: 09:00 Mental Health Crisis Note Presenting Issue How did you arrive at the ED and why did you come: Vignesh arrived at [facility] due to a suicide attempt. He was emotionally dysregulated and made another suicide attempt upon being admitted to the emergency room. An application for involuntary treatment was filed with the Department of Mental Health. That application was certified appropriately by a psychiatrist on 11-19-18. Precipitating Factors Currently the client denies HI/SI. His social interactions and communication skills are lacking. His body language is animated but atypical The client spoke extensively about his cats and making sure they are being fed. He also spoke at length about his intentions of engaging in more therapeutic groups and increasing the frequency of his therapy appointments. These subjects are appearing to become perseverative in nature. Disposition BEHAVIOR: Appropriate. EYE CONTACT: Good eye contact. MOOD: Pleasant and cooperative. AFFECT: Engaged and animated. APPETITE: Good appetite. SLEEP(trouble falling/staying asleep: Client reported he slept well during the night. Plan Vignesh will remain on involuntary status until a bed is found. A psychiatric placement will continue to be sought. Currently, [facility] has no beds or anticipated discharges, [facility] has no beds, [facility]--no beds, [facility] is not expecting a discharge until Thursday, [facility] has no beds, and [facility] has no bed availability. FLIGHT MANAGER staff will continue to assess Vignesh and support him in stabilization and explore outpatient therapeutic resource options. Signature Clinician's Name/Title: Ysabel Pate BA FLIGHT MANAGER Tractor Mechanic Helper
--- NOTE | 2018-11-21 18:48 | PDOC.MHCN ---
Date of service: 11/21/18 Time of Service: 18:48 Mental Health Crisis Note Presenting Issue How did you arrive at the ED and why did you come: Vignesh arrived at [facility] due to a suicide attempt. He was emotionally dysregulated and made another suicide attempt upon being admitted to the emergency room. An application for involuntary treatment was filed with the Department of Mental Health. That application was certified appropriately by a psychiatrist on 11-19-18. Precipitating Factors The client continues to deny SI/HI. The client continues to speak at length about his intentions of engaging in more therapeutic options, i.e. WRAP group. He continues to present in a socially atypical manner. He again spoke extensively about his cats, his intentions if he were to discharge back to the community, and how to cope with family stressors. The client seems to be ruminating about these subjects. His continues to state his plan for being in community is 'to ignore it all and not think about those things.' Disposition BEHAVIOR: Appropriate. EYE CONTACT: Good eye contact. MOOD: Pleasant and cooperative. AFFECT: Enagaged and animated. APPETITE: Good appetite. SLEEP(trouble falling/staying asleep: N/A Plan Vignesh will remain on involuntary status until a bed is found. A psychiatric placement will continue to be sought. Currently, [facility] has no beds or anticipated discharges, [facility] has no beds, [facility]--no beds, [facility] is not expecting a discharge until Thursday, [facility] has no beds, and [facility] has no bed availability. HOROLOGIST staff will continue to assess Vignesh and support him in stabilization and explore outpatient therapeutic resource options. A HOROLOGIST [facility] staff will further assess the client on 11/22/2018 to determine the appropriate course of treatment. Signature Clinician's Name/Title: Ysabel Pate BA HOROLOGIST History Card Clerk
--- NOTE | 2018-11-21 18:58 | PDOC.MHCN_ITS ---
Date of service: 11/21/18 Time of Service: 18:48 Mental Health Crisis Note Presenting Issue How did you arrive at the ED and why did you come: Vignesh arrived at [facility] due to a suicide attempt. He was emotionally dysregulated and made another suicide attempt upon being admitted to the emergency room. An application for involuntary treatment was filed with the Department of Mental Health. That application was certified appropriately by a psychiatrist on 11-19-18. Precipitating Factors The client continues to deny SI/HI. The client continues to speak at length about his intentions of engaging in more therapeutic options, i.e. WRAP group. He continues to present in a socially atypical manner. He again spoke extensively about his cats, his intentions if he were to discharge back to the community, and how to cope with family stressors. The client seems to be ruminating about these subjects. His continues to state his plan for being in community is 'to ignore it all and not think about those things.' Disposition BEHAVIOR: Appropriate. EYE CONTACT: Good eye contact. MOOD: Pleasant and cooperative. AFFECT: Enagaged and animated. APPETITE: Good appetite. SLEEP(trouble falling/staying asleep: N/A Plan Vignesh will remain on involuntary status until a bed is found. A psychiatric placement will continue to be sought. Currently, [facility] has no beds or anticipated discharges, [facility] has no beds, [facility]--no beds, [facility] is not expecting a discharge until Thursday, [facility] has no beds, and [facility] has no bed availability. PROJECT DEVELOPER staff will continue to assess Vignesh and support him in stabilization and explore outpatient therapeutic resource options. A PROJECT DEVELOPER [facility] staff will further assess the client on 11/22/2018 to determine the appropriate course of treatment. Signature Clinician's Name/Title: Ysabel Pate BA PROJECT DEVELOPER Escort Car Driver
[2018-11-21 19:45] VITALS: BP 105/61; PULSE 57; RESP 16; TEMP 36.1; O2SAT 95
[2018-11-22 07:40] VITALS: BP 104/63; PULSE 57; RESP 16; TEMP 36.4; O2SAT 98
[2018-11-22 11:20] VITALS: BP 113/78; PULSE 65; RESP 16; TEMP 36.7; O2SAT 96
--- NOTE | 2018-11-22 14:04 | NUR.NOTE ---
pt states that he feels like he wants to do something. He wants to talk to CM because he is very upset that mental health told him he was going home today. But now he is not. He also says he is not going to eat any more food. Nursing Note:
--- NOTE | 2018-11-22 15:20 | NUR.NOTE ---
pt began hitting his head against the door of his room. Bilateral sides of head have mt richter from that. CM is talking to pt and the patient stopped. Nursing Note:
--- NOTE | 2018-11-22 17:56 | W.PM.PROGNOT ---
Date of Service Date of service: 11/22/18 Time of Service: 18:11 Assessment and Plan (1) Suicide attempt: Current visit: Yes Status: Acute Involuntary admission for 2 suicidal gestures as noted above, currently under evaluation by mental health for potential placement versus safety for discharge. Per long discussion with mental health both yesterday evening as well as this morning, patient will need to be placed. Will continue to monitor with one-to-one observation, and current suicide precautions. Appears more agitated today after finding out that he will not be discharged - initiate low dose standing seroquel with prn haldol. Subjective Interval history since last seen: 58-year-old male with a history of bipolar disorder, as well as depression with previous suicide attempts, admitted from [facility] Emergency Department on 11/19 following a suicide attempt. Mr. Alaniz has psychiatric history as noted above, and has not been on any medications for his mental health problems. He was seen in the ED after making suicidal gestures while placing scissors to his neck after being issued a citation by the police for harassment of a family member. He then attempted to strangle himself in the ED with a scarf. He was placed on involuntary admission for referral to inpatient psychiatric treatment. Patient appears improved, now denying any suicidality. Mental Health and Care Management actively following. No apparent placement options today. Exam Narrative Exam Narrative: General: Patient appears comfortable, AAOX3, NAD Psych: Normal mood and affect. Objective Objective Clinical Data: Vital Signs Temperature 36.7 C 11/22/18 11:20 Temperature Source Tympanic 11/22/18 11:20 Pulse 65 11/22/18 11:20 Pulse Rhythm Regular 11/22/18 09:12 Respiratory Rate 16 11/22/18 11:20 Respiratory Effort 11/22/18 09:12 Respiratory Depth Normal 11/22/18 09:12 Respiratory Pattern Normal 11/22/18 09:12 Blood Pressure 113/78 11/22/18 11:20 Pulse Oximetry 96 11/22/18 11:20 Oxygen Delivery Method Room Air 11/22/18 11:20 Oxygen Flow Rate 0 11/22/18 11:20 Pain Level 0 11/22/18 07:40 Comment 11/22/18 15:49 Intake & Output 11/21/18 11/22/18 11/22/18 23:59 11:59 23:59 Intake Total 370 / 610 240 / 720 480 / 720 Balance 370 / 610 240 / 720 480 / 720 Intake: Oral 370 / 610 240 / 720 480 / 720 Other: Urine Appearance Clear Clear Comment pt gets up AD [place] to void. Voiding Methods Toilet Toilet Toilet Laboratory Results WBC 6.84 k/cumm (4.4-10.8) 11/18/18 23:55 RBC 5.08 m/cumm (4.50-6.00) 11/18/18 23:55 Hgb 15.3 g/dL (13.5-17.5) 11/18/18 23:55 Hct 44.3 % (40.0-50.0) 11/18/18 23:55 MCV 87.2 fL (80-95) 11/18/18 23:55 MCH 30.1 pg (27.0-33.0) 11/18/18 23:55 MCHC 34.5 g/dL (32.0-36.0) 11/18/18 23:55 RDW 13.5 % (11.8-14.1) 11/18/18 23:55 Plt Count 188 x1000/uL (130-400) 11/18/18 23:55 MPV 11.2 fL (8.0-11.0) H 11/18/18 23:55 Immature Gran % 0.1 11/18/18 23:55 Neutrophils % 80.9 11/18/18 23:55 Lymphocytes % 12.7 11/18/18 23:55 Monocytes % 5.8 11/18/18 23:55 Eosinophils % 0.1 11/18/18 23:55 Basophils % 0.4 11/18/18 23:55 Absolute Neutrophils 5.52 k/cumm (1.2-6.7) 11/18/18 23:55 Absolute Lymphocytes 0.87 k/cumm (1.2-3.4) L 11/18/18 23:55 Absolute Monocytes 0.40 k/cumm (0.11-0.7) 11/18/18 23:55 Absolute Eosinophils 0.01 k/cumm (0.0-0.7) 11/18/18 23:55 Absolute Basophils 0.03 k/cumm (0.0-0.2) 11/18/18 23:55 Sodium 139 mmol/L (136-145) 11/18/18 23:55 Potassium 3.7 mmol/L (3.5-5.1) 11/18/18 23:55 Chloride 102 mmol/L (98-107) 11/18/18 23:55 Carbon Dioxide 25.2 mmol/L (21.0-32.0) 11/18/18 23:55 Anion Gap 11.8 mmol/L (3-11) H 11/18/18 23:55 BUN 17 mg/dL (7-18) 11/18/18 23:55 Creatinine 1.26 mg/dL (0.70-1.30) 11/18/18 23:55 Estimated GFR/1.73 m2 59.20 (mL/min/1.73m2) 11/18/18 23:55 Glucose 195 mg/dL (70-100) H 11/18/18 23:55 Calcium 9.7 mg/dL (8.5-10.1) 11/18/18 23:55 TSH 2.40 uIU/mL (0.358-3.74) 11/18/18 23:55 Urine Color Yellow (Yellow) 11/20/18 14:00 Urine Clarity Clear 11/20/18 14:00 Urine pH 6.0 (5-8) 11/20/18 14:00 Ur Specific [place] >= 1.030 (1.005-1.025) H 11/20/18 14:00 Urine Protein Negative mg/dL (Negative) 11/20/18 14:00 Urine Ketones Trace mg/dL (Negative) H 11/20/18 14:00 Urine Blood Negative (Negative) 11/20/18 14:00 Urine Nitrite Negative (Negative) 11/20/18 14:00 Urine Bilirubin Negative (Negative) 11/20/18 14:00 Urine Urobilinogen 2.0 EU/dL (Up TO 0.2) H 11/20/18 14:00 Ur Leukocyte Esterase Negative (Negative) 11/20/18 14:00 Urine Glucose 100 mg/dL (Negative) 11/20/18 14:00 Urine Opiates Screen Negative (Negative) 11/19/18 00:39 Urine Methadone Screen Negative (Negative) 11/19/18 00:39 Ur Barbiturates Screen Negative (Negative) 11/19/18 00:39 Ur Tricyclics Screen Negative (Negative) 11/19/18 00:39 Ur Amphetamines Screen Negative (Negative) 11/19/18 00:39 U Benzodiazepines Scrn Negative (Negative) 11/19/18 00:39 Urine Cocaine Screen Negative (Negative) 11/19/18 00:39 Ur THC Screen Negative (Negative) 11/19/18 00:39 Ethyl Alcohol < 3.0 mg/dL (<3) 11/18/18 23:55
--- NOTE | 2018-11-22 18:34 | PDOC.CMPRO ---
Care Management Progress Note INVOLUNTARY FOR INPATIENT PSYCHIATRIC STABILIZATION: Vignesh required much support today, he was dysregulated through most of the day requiring constant cueing to regulate his emotional responses appropriately. [facility] WHITE SUGAR SYRUP OPERATOR CM and [facility] Meena Nash met with Vignesh with the expectation he would return home today; when staff shared concerns that plan changed and Vignesh was unable to tolerate the change and became dysregulated marked with weeping, anger and hopelessness, statements of SI and even banging his head against his door. CM supported Vignesh throughout the day and encouraged him to process his frustrations appropriately. CM encouraged Vignesh to take medications to help manage his emotional response and help him sleep but he was unwilling to consider at this time. did request MD order medication to be available in the event Vignesh changes his mind. also requested [facility] support person for Vignesh as he is requiring constant re-assurance and support to regulate. [facility] called to report Ksiha Richeyverly would be in Vignesh's room in addition to [facility] CPSO from [phone]. notified RNCC, NS, current CPSO that [facility] worker would be an additional support and not take the place of the CPSO at any time. Huddle Participants: Meena Nash, Navjot and Eliane ([facility]), Jaye(RN Molecular Biology Scientist), Sri, (CM), Cherri, (RNCC), Cezar (RN) Safety plan has been established with patient, and care team, to adhere to patient goals, identify restrictions based on behavioral status, address nutrition, and determine allowed personal belongings, tools for hygiene and personal care. Determine level of activity including ambulation, level of supervision, visitors, and determine privileges based on behaviors and level of engagement by patient. Vignesh will remain at [facility] until bed placement is available. He will continue to discuss community resources and work with WHITE SUGAR SYRUP OPERATOR case workers (Q12) through the weekend to help him create a routine of programming he can engage in that will help him cope with his anxiety and anger that relates to stressors in his life he has difficulty coping with. This will help him with increasing engagement in treatment resources that can be a part of his safety plan needed. From this, it is hoped that he may be able to be discharged next week if bed placement continues to be a challenge. SAFETY PLAN: 1. Will remain on suicide precautions and in paper clothes. 2. Will remain in room under direct supervision of one-on-one staff at all times provided by [employer], RETAIL PHARMACY MANAGER custodial supervisor. 3. May have paper cups, plates, finger foods. 4. Follow [facility] Management of the Admitted Behavioral Health Patient policy. 5. Comfort bath system only. 6. No personal belongings; may have eyeglasses with expectation they will be removed in event of behavioral escalation 7. No visitors at this time, no phone contact at this time. 8. Activities - May have coloring supplies such as crayons and paper 9. TV - May have TV and remote if available Bed Availability: Per WHITE SUGAR SYRUP OPERATOR: Vignesh will remain on involuntary status until a bed is found. A psychiatric placement will continue to be sought. Currently, [facility] has no beds or anticipated discharges, [facility] has no beds, [facility], [facility] is not expecting a discharge until Thursday, [facility] has no beds, and [facility] has no bed availability. WHITE SUGAR SYRUP OPERATOR staff will continue to assess Vignesh and support him in stabilization and explore outpatient therapeutic resource options. Patient is currently involuntarily at [facility] and seeking inpatient admission when a bed becomes available. [facility] Frontline Geospatial Imagery Intelligence Analyst will continue seeking placement. Please contact the Aligning Checker Header Dock ([phone]) and [facility] Geospatial Imagery Intelligence Analyst ([phone]) for any needed changes in the Safety Plan. Safety plan has been provided to interdepartmental care team including Clinical Coordinator, Nursing Molecular Biology Scientist.
--- NOTE | 2018-11-22 18:58 | CMPROGNOTE_ITS ---
Care Management Progress Note INVOLUNTARY FOR INPATIENT PSYCHIATRIC STABILIZATION: Vignesh required much support today, he was dysregulated through most of the day requiring constant cueing to regulate his emotional responses appropriately. [facility] HEAD TRACK COACH CM and [facility] Meena Nash met with Vignesh with the expectation he would return home today; when staff shared concerns that plan changed and Vignesh was unable to tolerate the change and became dysregulated marked with weeping, anger and hopelessness, statements of SI and even banging his head against his door. CM supported Vignesh throughout the day and encouraged him to process his frustrations appropriately. CM encouraged Vignesh to take medications to help manage his emotional response and help him sleep but he was unwilling to consider at this time. did request MD order medication to be available in the event Vignesh changes his mind. also requested [facility] support person for Vignesh as he is requiring constant re- assurance and support to regulate. [facility] called to report Kisha Richeyverly would be in Vignesh's room in addition to [facility] CPSO from [phone]. notified RNCC, NS, current CPSO that [facility] worker would be an additional support and not take the place of the CPSO at any time. Huddle Participants: Meena Nash, Navjot and Eliane ([facility]), Jaye(RN Occupational Therapist Aide), Sri, (CM), Cherri, (RNCC), Cezar (RN) Safety plan has been established with patient, and care team, to adhere to patient goals, identify restrictions based on behavioral status, address nutrition, and determine allowed personal belongings, tools for hygiene and personal care. Determine level of activity including ambulation, level of supervision, visitors, and determine privileges based on behaviors and level of engagement by patient. Vignesh will remain at [facility] until bed placement is available. He will continue to discuss community resources and work with HEAD TRACK COACH case workers (Q12) through the weekend to help him create a routine of programming he can engage in that will help him cope with his anxiety and anger that relates to stressors in his life he has difficulty coping with. This will help him with increasing engagement in treatment resources that can be a part of his safety plan needed. From this, it is hoped that he may be able to be discharged next week if bed placement continues to be a challenge. SAFETY PLAN: 1. Will remain on suicide precautions and in paper clothes. 2. Will remain in room under direct supervision of one-on-one staff at all times provided by EARLINE, EYEGLASS LENS CUTTER fireboat operator. 3. May have paper cups, plates, finger foods. 4. Follow [facility] Management of the Admitted Behavioral Health Patient policy. 5. Comfort bath system only. 6. No personal belongings; may have eyeglasses with expectation they will be removed in event of behavioral escalation 7. No visitors at this time, no phone contact at this time. 8. Activities - May have coloring supplies such as crayons and paper 9. TV - May have TV and remote if available Bed Availability: Per HEAD TRACK COACH: Vignesh will remain on involuntary status until a bed is found. A psychiatric placement will continue to be sought. Currently, [facility] has no beds or anticipated discharges, [facility] has no beds, [facility]--no beds, [facility] is not expecting a discharge until Thursday, [facility] has no beds, and [facility] has no bed availability. HEAD TRACK COACH staff will continue to assess Vignesh and support him in stabilization and explore outpatient therapeutic resource options. Patient is currently involuntarily at [facility] and seeking inpatient admission when a bed becomes available. [facility] Frontline Industrial Tractor Driver will continue seeking placement. Please contact the Skating Rink Manager Music Supervisor ([phone]) and [facility] Industrial Tractor Driver ([phone]) for any needed changes in the Safety Plan. Safety plan has been provided to interdepartmental care team including Clinical Coordinator, Nursing Occupational Therapist Aide.
--- NOTE | 2018-11-23 09:47 | PDOC.CMPRO ---
Care Management Progress Note INVOLUNTARY FOR INPATIENT PSYCHIATRIC STABILIZATION: Vignesh was able to have some much needed sleep last night and this morning. He required less support today, but continues to perseverate on pathways of returning home. He has not yet been agreeable to having his vitals taken or trying medication at this time. Per report, he has declined offers of food and water consistently since yesterday. Vignesh was agreeable to providing his keys to [employer] [facility] so they could secure his home. Cezar MARCH and this manual writer witnessed Vignesh complete paperwork to release his keys and signed accordingly. Vignesh also met with Eliane of [employer] and complete a release of information to allow [employer] to coordinate care for Vignesh's cats; Christie and Sugar. Per RN report: pt is still refusing all care at this time. pt refusing to eat and drink at this time. pt does state that he does have vague SI. Care Planning Participants: Navjot ([facility]), Sri, (CM), Cezar (RN) Safety plan has been established with patient, and care team, to adhere to patient goals, identify restrictions based on behavioral status, address nutrition, and determine allowed personal belongings, tools for hygiene and personal care. Determine level of activity including ambulation, level of supervision, visitors, and determine privileges based on behaviors and level of engagement by patient. Vignesh will remain at [facility] until bed placement is available. SAFETY PLAN: 1. Will remain on suicide precautions and in paper clothes. 2. Will remain in room under direct supervision of one-on-one staff at all times provided by EARLINE, DIGESTER HAND emulsion operator. 3. May have paper cups, plates, finger foods. 4. Follow [facility] Management of the Admitted Behavioral Health Patient policy. 5. Comfort bath system only. 6. No personal belongings; may have eyeglasses with expectation they will be removed in event of behavioral escalation 7. No visitors at this time, no phone contact at this time. 8. Activities - May have coloring supplies such as crayons and paper 9. TV - May have TV and remote if available Bed Availability: No bed availability; Please refer to [facility]; Navjot's note for further information. Patient is currently involuntarily at [facility] and seeking inpatient admission when a bed becomes available. [facility] Frontline Quality Control Lab Tech will continue seeking placement. Please contact the Rug Clipper Tobacco Packing Machine Operator ([phone]) and [facility] Quality Control Lab Tech ([phone]) for any needed changes in the Safety Plan. Safety plan has been provided to interdepartmental care team including Clinical Coordinator, Nursing Security Developer.
--- NOTE | 2018-11-23 09:50 | CMPROGNOTE_ITS ---
Care Management Progress Note INVOLUNTARY FOR INPATIENT PSYCHIATRIC STABILIZATION: Vignesh was able to have some much needed sleep last night and this morning. He required less support today, but continues to perseverate on pathways of returning home. He has not yet been agreeable to having his vitals taken or trying medication at this time. Per report, he has declined offers of food and water consistently since yesterday. Vignesh was agreeable to providing his keys to [employer] [facility] so they could secure his home. Cezar MARCH and this underwriter mortgage loan witnessed Vignesh complete paperwork to release his keys and signed accordingly. Vignesh also met with Eliane of [employer] and complete a release of information to allow [employer] to coordinate care for Vignesh's cats; Christie and Sugar. Per RN report: pt is still refusing all care at this time. pt refusing to eat and drink at this time. pt does state that he does have vague SI. Care Planning Participants: Navjot ([facility]), Sri, (CM), Cezar (RN) Safety plan has been established with patient, and care team, to adhere to patient goals, identify restrictions based on behavioral status, address nutrition, and determine allowed personal belongings, tools for hygiene and personal care. Determine level of activity including ambulation, level of supervision, visitors, and determine privileges based on behaviors and level of engagement by patient. Vignesh will remain at [facility] until bed placement is available. SAFETY PLAN: 1. Will remain on suicide precautions and in paper clothes. 2. Will remain in room under direct supervision of one-on-one staff at all times provided by EARLINE, REGIONAL ADMINISTRATIVE ASSISTANT trash collector truck driver. 3. May have paper cups, plates, finger foods. 4. Follow [facility] Management of the Admitted Behavioral Health Patient policy. 5. Comfort bath system only. 6. No personal belongings; may have eyeglasses with expectation they will be removed in event of behavioral escalation 7. No visitors at this time, no phone contact at this time. 8. Activities - May have coloring supplies such as crayons and paper 9. TV - May have TV and remote if available Bed Availability: No bed availability; Please refer to [facility]; Navjot's note for further information. Patient is currently involuntarily at [facility] and seeking inpatient admission when a bed becomes available. [facility] Frontline Food Bagging Machine Operator will continue seeking placement. Please contact the Pilot Plant Technician Hostel Manager ([phone]) and [facility] Food Bagging Machine Operator ([phone]) for any needed changes in the Safety Plan. Safety plan has been provided to interdepartmental care team including Clinical Coordinator, Nursing Solutions Architect.
--- NOTE | 2018-11-23 11:33 | PDOC.MHCN ---
Date of service: 11/23/18 Time of Service: 11:33 Mental Health Crisis Note Presenting Issue How did you arrive at the ED and why did you come: Vignesh has been at [facility] on an emergency evaluation due to some problems he had interacting with others in the community. Precipitating Factors He denies that he is suicidal or homicidal at this time. He reports he wants to engage in treatment planning resources and concepts he discussed with his director of casework department yesterday. However, he is still anxious and perseverating on his point and continues to advocate for himself eventhough the process of the emergency evaluation has been explained and the benefits of treatment discussed. Disposition BEHAVIOR: perseverative, rambling, EYE CONTACT: good MOOD: anxious AFFECT: irritable/condensed APPETITE: poor SLEEP(trouble falling/staying asleep: fair to poor Plan Vignesh will remain on emergency evaluation status at [facility] until bed placement is found.
--- NOTE | 2018-11-23 11:38 | PDOC.MHCN_ITS ---
Date of service: 11/23/18 Time of Service: 11:33 Mental Health Crisis Note Presenting Issue How did you arrive at the ED and why did you come: Vignesh has been at [facility] on an emergency evaluation due to some problems he had interacting with others in the community. Precipitating Factors He denies that he is suicidal or homicidal at this time. He reports he wants to engage in treatment planning resources and concepts he discussed with his case briefer yesterday. However, he is still anxious and perseverating on his point and continues to advocate for himself eventhough the process of the emergency evaluation has been explained and the benefits of treatment discussed. Disposition BEHAVIOR: perseverative, rambling, EYE CONTACT: good MOOD: anxious AFFECT: irritable/condensed APPETITE: poor SLEEP(trouble falling/staying asleep: fair to poor Plan Vignesh will remain on emergency evaluation status at [facility] until bed placement is found.
--- NOTE | 2018-11-23 16:09 | PGE_ITS ---
Date of Service Date of service: 11/23/18 Time of Service: 16:06 Assessment and Plan (1) Suicide attempt: Current visit: Yes Status: Acute Involuntary admission for 2 suicidal gestures as noted above, currently under evaluation by mental health for potential placement. Per long discussion with mental health previously, patient will need to be placed. Will continue to monitor with one-to-one observation, and current suicide precautions. Appears more agitated after finding out that he will not be discharged - initiated low dose standing seroquel with prn haldol. Subjective Interval history since last seen: 58-year-old male with a history of bipolar disorder, as well as depression with previous suicide attempts, admitted from [facility] Emergency Department on 11/19 following a suicide attempt. Mr. Alaniz has psychiatric history as noted above, and has not been on any medications for his mental health problems. He was seen in the ED after making suicidal gestures while placing scissors to his neck after being issued a citation by the police for harassment of a family member. He then attempted to strangle himself in the ED with a scarf, and was caught trying to hide the drawstrings of his disposable clothing while hospitalized. He was placed on involuntary admission for referral to inpatient psychiatric treatment, which he is still awaiting. Patient continues to deny suicidality. Mental Health and Care Management actively following. No apparent placement options today. Exam Narrative Exam Narrative: General: Patient appears comfortable, AAOX3, NAD Psych: Normal mood and affect. Objective Objective Clinical Data: Vital Signs Temperature 36.7 C 11/22/18 11:20 Temperature Source Tympanic 11/22/18 11:20 Pulse 65 11/22/18 11:20 Pulse Rhythm Regular 11/23/18 08:25 Respiratory Rate 16 11/22/18 11:20 Respiratory Effort 11/23/18 08:25 Respiratory Depth Normal 11/23/18 08:25 Respiratory Pattern Normal 11/23/18 08:25 Blood Pressure 113/78 11/22/18 11:20 Pulse Oximetry 96 11/22/18 11:20 Oxygen Delivery Method Room Air 11/22/18 11:20 Oxygen Flow Rate 0 11/22/18 11:20 Pain Level 0 11/22/18 07:40 Comment 11/23/18 03:13 Intake & Output 11/22/18 11/23/18 11/23/18 23:59 11:59 23:59 Intake Total 480 / 720 Balance 480 / 720 Intake: Oral 480 / 720 Other: Urine Appearance Clear Voiding Methods Toilet Toilet Laboratory Results WBC 6.84 k/cumm (4.4-10.8) 11/18/18 23:55 RBC 5.08 m/cumm (4.50-6.00) 11/18/18 23:55 Hgb 15.3 g/dL (13.5-17.5) 11/18/18 23:55 Hct 44.3 % (40.0-50.0) 11/18/18 23:55 MCV 87.2 fL (80-95) 11/18/18 23:55 MCH 30.1 pg (27.0-33.0) 11/18/18 23:55 MCHC 34.5 g/dL (32.0-36.0) 11/18/18 23:55 RDW 13.5 % (11.8-14.1) 11/18/18 23:55 Plt Count 188 x1000/uL (130-400) 11/18/18 23:55 MPV 11.2 fL (8.0-11.0) H 11/18/18 23:55 Immature Gran % 0.1 11/18/18 23:55 Neutrophils % 80.9 11/18/18 23:55 Lymphocytes % 12.7 11/18/18 23:55 Monocytes % 5.8 11/18/18 23:55 Eosinophils % 0.1 11/18/18 23:55 Basophils % 0.4 11/18/18 23:55 Absolute Neutrophils 5.52 k/cumm (1.2-6.7) 11/18/18 23:55 Absolute Lymphocytes 0.87 k/cumm (1.2-3.4) L 11/18/18 23:55 Absolute Monocytes 0.40 k/cumm (0.11-0.7) 11/18/18 23:55 Absolute Eosinophils 0.01 k/cumm (0.0-0.7) 11/18/18 23:55 Absolute Basophils 0.03 k/cumm (0.0-0.2) 11/18/18 23:55 Sodium 139 mmol/L (136-145) 11/18/18 23:55 Potassium 3.7 mmol/L (3.5-5.1) 11/18/18 23:55 Chloride 102 mmol/L (98-107) 11/18/18 23:55 Carbon Dioxide 25.2 mmol/L (21.0-32.0) 11/18/18 23:55 Anion Gap 11.8 mmol/L (3-11) H 11/18/18 23:55 BUN 17 mg/dL (7-18) 11/18/18 23:55 Creatinine 1.26 mg/dL (0.70-1.30) 11/18/18 23:55 Estimated GFR/1.73 m2 59.20 (mL/min/1.73m2) 11/18/18 23:55 Glucose 195 mg/dL (70-100) H 11/18/18 23:55 Calcium 9.7 mg/dL (8.5-10.1) 11/18/18 23:55 TSH 2.40 uIU/mL (0.358-3.74) 11/18/18 23:55 Urine Color Yellow (Yellow) 11/20/18 14:00 Urine Clarity Clear 11/20/18 14:00 Urine pH 6.0 (5-8) 11/20/18 14:00 Ur Specific Gilbert >= 1.030 (1.005-1.025) H 11/20/18 14:00 Urine Protein Negative mg/dL (Negative) 11/20/18 14:00 Urine Ketones Trace mg/dL (Negative) H 11/20/18 14:00 Urine Blood Negative (Negative) 11/20/18 14:00 Urine Nitrite Negative (Negative) 11/20/18 14:00 Urine Bilirubin Negative (Negative) 11/20/18 14:00 Urine Urobilinogen 2.0 EU/dL (Up TO 0.2) H 11/20/18 14:00 Ur Leukocyte Esterase Negative (Negative) 11/20/18 14:00 Urine Glucose 100 mg/dL (Negative) 11/20/18 14:00 Urine Opiates Screen Negative (Negative) 11/19/18 00:39 Urine Methadone Screen Negative (Negative) 11/19/18 00:39 Ur Barbiturates Screen Negative (Negative) 11/19/18 00:39 Ur Tricyclics Screen Negative (Negative) 11/19/18 00:39 Ur Amphetamines Screen Negative (Negative) 11/19/18 00:39 U Benzodiazepines Scrn Negative (Negative) 11/19/18 00:39 Urine Cocaine Screen Negative (Negative) 11/19/18 00:39 Ur THC Screen Negative (Negative) 11/19/18 00:39 Ethyl Alcohol < 3.0 mg/dL (<3) 11/18/18 23:55
--- NOTE | 2018-11-24 11:32 | W.INMHPGNOTE ---
Date of service: 11/24/18 Time of Service: 11:32 Mental Health Crisis Note Presenting Issue How did you arrive at the ED and why did you come: Vignesh has been held on an emergency evaluation due to stocking type behaviors on the internet that resulted in he having a welfare check from police. When the police arrived, he made suicidal gestures and attempted suicide when he arrived at the local hospital. Vignesh's 2nd certification was approved on 11-19-18 and he has been at [facility] since awaiting placement. Precipitating Factors Vignesh continues to deny he is suicidal or homicidal. He reports having a lot of agitation about being on involuntary papers. He perseverates on the issue and has expressed his disagreement with head banging the wall or not eating for two days. Attempts to redirect him from these behaviors have had limited success. Disposition BEHAVIOR: oppositional, perseverative, overelaborate EYE CONTACT: fair MOOD: anxious AFFECT: irritable APPETITE: poor/by his own cognizant choice SLEEP(trouble falling/staying asleep: trouble falling and staying asleep Plan Vignesh will continue to be held involuntarily at [facility] while awaiting a psychiatric placement. A conference between [facility], [facility], and [facility] will occur today to discuss placement options and the concerns of behavioral management that have occurred at this facility since he has been admitted on Thursday (11-19-18) afternoon. Signature Clinician's Name/Title: Navjot Rico MA [facility]
--- NOTE | 2018-11-24 11:40 | MHPN_ITS ---
Date of service: 11/24/18 Time of Service: 11:32 Mental Health Crisis Note Presenting Issue How did you arrive at the ED and why did you come: Vignesh has been held on an emergency evaluation due to stocking type behaviors on the internet that resulted in he having a welfare check from police. When the police arrived, he made suicidal gestures and attempted suicide when he arrived at the local hospital. Vignesh's 2nd certification was approved on 11-19-18 and he has been at [facility] since awaiting placement. Precipitating Factors Vignesh continues to deny he is suicidal or homicidal. He reports having a lot of agitation about being on involuntary papers. He perseverates on the issue and has expressed his disagreement with head banging the wall or not eating for two days. Attempts to redirect him from these behaviors have had limited success. Disposition BEHAVIOR: oppositional, perseverative, overelaborate EYE CONTACT: fair MOOD: anxious AFFECT: irritable APPETITE: poor/by his own cognizant choice SLEEP(trouble falling/staying asleep: trouble falling and staying asleep Plan Vignesh will continue to be held involuntarily at [facility] while awaiting a psychiatric placement. A conference between [facility], [facility], and [facility] will occur today to discuss placement options and the concerns of behavioral management that have occurred at this facility since he has been admitted on Thursday (11-19-18) afternoon. Signature Clinician's Name/Title: Navjot Rico MA [facility]
--- NOTE | 2018-11-24 11:51 | NUR.NOTE ---
Nursing Note: 11/24/18 @ 0950-continues to refuse meds and meal. Is drinking coke at bedside. Talking to CPSO & watching TV.
[2018-11-24 13:40] VITALS: BP 120/74; PULSE 105; RESP 20; TEMP 36.9; O2SAT 98
--- NOTE | 2018-11-24 14:04 | NUR.NOTE ---
Nursing Note:11/24/18@1400- asking for congical visits. Very firm in telling him No that was not possible. he states even in prisons they allow congical visits.
--- NOTE | 2018-11-24 15:03 | PDOC.CMPRO ---
- If Service Date Differs Date of service: 11/24/18 Time of Service: 15:04 Care Management Progress Note INVOLUNTARY FOR INPATIENT PSYCHIATRIC STABILIZATION: Vignesh has been ambulating in his room throughout the day today. He requests a guitar to play music on, has notified Vignesh that he will not be able to have a guitar at this time, and has offered other activities such as coloring, crayons, and paper. A conference call was held this afternoon, those in attendance Denisa Joseph ([facility]), Magdi ([facility] AUTOMOTIVE PARTS INTERPRETER), Susana Figueroa (), Kalpana (RN Box Puller) and Tomeka (JIMENA). Discussion had around Vignesh continuing to refuse to eat/drink (he has taken some coke this afternoon), and his need for placement at a psychiatric facility. Updates given to Denisa in regards to Vignesh's current presentation, Denisa states that she will be contacting [facility], as well as [facility], in regards to placement. JIMENA faxed updated clinicals to [place] this morning. Care Planning Participants: Denisa Joseph ([facility]), Magdi ([facility] AUTOMOTIVE PARTS INTERPRETER), Susana Figueroa (), Kalpana (RN Box Puller) and Tomeka () Safety plan has been established with patient, and care team, to adhere to patient goals, identify restrictions based on behavioral status, address nutrition, and determine allowed personal belongings, tools for hygiene and personal care. Determine level of activity including ambulation, level of supervision, visitors, and determine privileges based on behaviors and level of engagement by patient. Vignesh will remain at [facility] until bed placement is available. SAFETY PLAN: 1. Will remain on suicide precautions and in paper clothes. 2. Will remain in room under direct supervision of one-on-one staff at all times provided by EARLINE, SCHOOL EXAMINER quality control inspector. 3. May have paper cups, plates, finger foods. 4. Follow [facility] Management of the Admitted Behavioral Health Patient policy. 5. Comfort bath system only. 6. No personal belongings; may have eyeglasses with expectation they will be removed in event of behavioral escalation 7. No visitors at this time, no phone contact at this time. 8. Activities - May have coloring supplies such as crayons and paper 9. TV - May have TV and remote if available Bed Availability: No bed availability; Please refer to JOANIE; Navjot's note for further information. Patient is currently involuntarily at [facility] and seeking inpatient admission when a bed becomes available. [facility] Frontline Manager Pharmacy will continue seeking placement. Please contact the Electric Meter Repairer Helper Stoker Erector And Servicer ([phone]) and [facility] Manager Pharmacy ([phone]) for any needed changes in the Safety Plan. Safety plan has been provided to interdepartmental care team including Clinical Coordinator, Nursing Box Puller.
[2018-11-24 15:05] VITALS: PULSE 87; RESP 19; TEMP 36.4; O2SAT 94
--- NOTE | 2018-11-24 15:10 | CMPROGNOTE_ITS ---
- If Service Date Differs Date of service: 11/24/18 Time of Service: 15:04 Care Management Progress Note INVOLUNTARY FOR INPATIENT PSYCHIATRIC STABILIZATION: Vignesh has been ambulating in his room throughout the day today. He requests a guitar to play music on, has notified Vignesh that he will not be able to have a guitar at this time, and has offered other activities such as coloring, crayons, and paper. A conference call was held this afternoon, those in attendance Denisa Joseph ([facility]), Magdi ([facility] OPERATING SYSTEM PROGRAMMER), Susana Figueroa (), Kalpana (RN Small Business Sales Representative) and Tomeka (JIMENA). Discussion had around Vignesh continuing to refuse to eat/drink (he has taken some coke this afternoon), and his need for placement at a psychiatric facility. Updates given to Denisa in regards to Vignesh's current presentation, Denisa states that she will be contacting [facility], as well as [facility], in regards to placement. JIMENA faxed updated clinicals to [place] this morning. Care Planning Participants: Denisa Joseph ([facility]), Magdi ([facility] OPERATING SYSTEM PROGRAMMER), Ssuana Figueroa (), Kalpana (RN Small Business Sales Representative) and Tomeka () Safety plan has been established with patient, and care team, to adhere to patient goals, identify restrictions based on behavioral status, address nutrition, and determine allowed personal belongings, tools for hygiene and personal care. Determine level of activity including ambulation, level of supervision, visitors, and determine privileges based on behaviors and level of engagement by patient. Vignesh will remain at [facility] until bed placement is available. SAFETY PLAN: 1. Will remain on suicide precautions and in paper clothes. 2. Will remain in room under direct supervision of one-on-one staff at all times provided by EARLINE, CAN FILLING MACHINE OPERATOR client support manager. 3. May have paper cups, plates, finger foods. 4. Follow [facility] Management of the Admitted Behavioral Health Patient policy. 5. Comfort bath system only. 6. No personal belongings; may have eyeglasses with expectation they will be removed in event of behavioral escalation 7. No visitors at this time, no phone contact at this time. 8. Activities - May have coloring supplies such as crayons and paper 9. TV - May have TV and remote if available Bed Availability: No bed availability; Please refer to JOANIE; Navjot's note for further information. Patient is currently involuntarily at [facility] and seeking inpatient admission when a bed becomes available. [facility] Frontline Director [employer] will continue seeking placement. Please contact the Maintenance Shop Technician Pizza Maker ([phone]) and [facility] Director [employer] ([phone]) for any needed changes in the Safety Plan. Safety plan has been provided to interdepartmental care team including Clinical Coordinator, Nursing Small Business Sales Representative.
--- NOTE | 2018-11-24 16:14 | W.PM.PROGNOT ---
Date of Service Date of service: 11/24/18 Time of Service: 16:14 Assessment and Plan (1) Suicide attempt: Current visit: Yes Status: Acute Involuntary admission for 2 suicidal gestures as noted above, currently under evaluation by mental health for potential placement. Per long discussion with mental health previously, patient will need to be placed. Will continue to monitor with one-to-one observation, and current suicide precautions. Appears more agitated after finding out that he will not be discharged - initiated low dose standing seroquel with prn haldol previously. (2) Chest pain: Current visit: Yes Status: Acute EKG without ischemic changes - essentially normal. Likely anxiety driven - Trend troponins. Subjective Interval history since last seen: 58-year-old male with a history of bipolar disorder, as well as depression with previous suicide attempts, admitted from [facility] Emergency Department on 11/19 following a suicide attempt. Mr. Alaniz has psychiatric history as noted above, and has not been on any medications for his mental health problems. He was seen in the ED after making suicidal gestures while placing scissors to his neck after being issued a citation by the police for harassment of a family member. He then attempted to strangle himself in the ED with a scarf, and was caught trying to hide the drawstrings of his disposable clothing while hospitalized. He was placed on involuntary admission for referral to inpatient psychiatric treatment, which he is still awaiting. Patient continues to deny suicidality. Mental Health and Care Management actively following. No apparent placement options today. Patient has not been eating, slept on the floor last night using sheets and blanket from his bedding. He continues to state that he is being held against his will, and asking to leave. Complaint of chest pain this afternoon that quickly subsided. EKG checked and completely normal. No other events reported. Exam Narrative Exam Narrative: General: Patient appears comfortable, AAOX3, NAD Psych: Normal mood and affect. Objective Objective Clinical Data: Vital Signs Temperature 36.4 C L 11/24/18 15:05 Temperature Source Tympanic 11/24/18 13:40 Pulse 87 11/24/18 15:05 Pulse Rhythm Regular 11/23/18 08:25 Respiratory Rate 19 11/24/18 15:05 Respiratory Effort 11/24/18 15:05 Respiratory Depth Normal 11/24/18 07:50 Respiratory Pattern Normal 11/24/18 07:50 Blood Pressure 120/74 11/24/18 13:40 Pulse Oximetry 94 L 11/24/18 15:05 Oxygen Delivery Method Room Air 11/24/18 15:05 Oxygen Flow Rate 0 11/24/18 15:05 Pain Level 3 11/24/18 15:05 Comment 11/24/18 08:54 Intake & Output 11/23/18 11/24/18 11/24/18 23:59 11:59 23:59 Intake Total 480 / 960 480 / 960 Balance 480 / 960 480 / 960 Intake: Oral 480 / 960 480 / 960 Other: Voiding Methods Toilet Laboratory Results WBC 6.84 k/cumm (4.4-10.8) 11/18/18 23:55 RBC 5.08 m/cumm (4.50-6.00) 11/18/18 23:55 Hgb 15.3 g/dL (13.5-17.5) 11/18/18 23:55 Hct 44.3 % (40.0-50.0) 11/18/18 23:55 MCV 87.2 fL (80-95) 11/18/18 23:55 MCH 30.1 pg (27.0-33.0) 11/18/18 23:55 MCHC 34.5 g/dL (32.0-36.0) 11/18/18 23:55 RDW 13.5 % (11.8-14.1) 11/18/18 23:55 Plt Count 188 x1000/uL (130-400) 11/18/18 23:55 MPV 11.2 fL (8.0-11.0) H 11/18/18 23:55 Immature Gran % 0.1 11/18/18 23:55 Neutrophils % 80.9 11/18/18 23:55 Lymphocytes % 12.7 11/18/18 23:55 Monocytes % 5.8 11/18/18 23:55 Eosinophils % 0.1 11/18/18 23:55 Basophils % 0.4 11/18/18 23:55 Absolute Neutrophils 5.52 k/cumm (1.2-6.7) 11/18/18 23:55 Absolute Lymphocytes 0.87 k/cumm (1.2-3.4) L 11/18/18 23:55 Absolute Monocytes 0.40 k/cumm (0.11-0.7) 11/18/18 23:55 Absolute Eosinophils 0.01 k/cumm (0.0-0.7) 11/18/18 23:55 Absolute Basophils 0.03 k/cumm (0.0-0.2) 11/18/18 23:55 Sodium 139 mmol/L (136-145) 11/18/18 23:55 Potassium 3.7 mmol/L (3.5-5.1) 11/18/18 23:55 Chloride 102 mmol/L (98-107) 11/18/18 23:55 Carbon Dioxide 25.2 mmol/L (21.0-32.0) 11/18/18 23:55 Anion Gap 11.8 mmol/L (3-11) H 11/18/18 23:55 BUN 17 mg/dL (7-18) 11/18/18 23:55 Creatinine 1.26 mg/dL (0.70-1.30) 11/18/18 23:55 Estimated GFR/1.73 m2 59.20 (mL/min/1.73m2) 11/18/18 23:55 Glucose 195 mg/dL (70-100) H 11/18/18 23:55 Calcium 9.7 mg/dL (8.5-10.1) 11/18/18 23:55 TSH 2.40 uIU/mL (0.358-3.74) 11/18/18 23:55 Urine Color Yellow (Yellow) 11/20/18 14:00 Urine Clarity Clear 11/20/18 14:00 Urine pH 6.0 (5-8) 11/20/18 14:00 Ur Specific [place] >= 1.030 (1.005-1.025) H 11/20/18 14:00 Urine Protein Negative mg/dL (Negative) 11/20/18 14:00 Urine Ketones Trace mg/dL (Negative) H 11/20/18 14:00 Urine Blood Negative (Negative) 11/20/18 14:00 Urine Nitrite Negative (Negative) 11/20/18 14:00 Urine Bilirubin Negative (Negative) 11/20/18 14:00 Urine Urobilinogen 2.0 EU/dL (Up TO 0.2) H 11/20/18 14:00 Ur Leukocyte Esterase Negative (Negative) 11/20/18 14:00 Urine Glucose 100 mg/dL (Negative) 11/20/18 14:00 Urine Opiates Screen Negative (Negative) 11/19/18 00:39 Urine Methadone Screen Negative (Negative) 11/19/18 00:39 Ur Barbiturates Screen Negative (Negative) 11/19/18 00:39 Ur Tricyclics Screen Negative (Negative) 11/19/18 00:39 Ur Amphetamines Screen Negative (Negative) 11/19/18 00:39 U Benzodiazepines Scrn Negative (Negative) 11/19/18 00:39 Urine Cocaine Screen Negative (Negative) 11/19/18 00:39 Ur THC Screen Negative (Negative) 11/19/18 00:39 Ethyl Alcohol < 3.0 mg/dL (<3) 11/18/18 23:55
[2018-11-25 08:20] VITALS: BP 127/80; PULSE 86; RESP 18; TEMP 36.4; O2SAT 99
--- NOTE | 2018-11-25 09:35 | W.NUTCONSULT ---
Date of service: 11/25/18 Time of Service: 09:36 Nutritional Consult ASSESSMENT: Pt. had been refusing to eat, however yesterday he ordered two breakfast sandwiches at lunch and ordered a very large dinner. CAMRYN and/or GUILLAUME has been visiting pt. twice daily for food selections even when he refuses. He is 71 and 73.7 kg. His BMI is 24 kg/m2 which is WNL. NUTRITIONAL DIAGNOSIS: Inability or lack of desire to manage self care related to current medical condition as evidenced by refusal to eat. INTERVENTION: CDM and/or RD will continue to visit pt. twice daily for food selections. If he refuses to order, he will be made a will call and nursing staff may call down for food for him when he is ready and willing to eat. MONITORING AND EVALUATION: 1. Will monitor PO intake and weight. Please weight patient weekly. 2. Will evaluate nutrition care plan ongoing and adjust as needed. Time Spent in Nutritional Counseling and Treatment: AJIT
--- NOTE | 2018-11-25 13:33 | CMPROGNOTE_ITS ---
- If Service Date Differs Date of service: 11/25/18 Time of Service: 13:33 Care Management Progress Note INVOLUNTARY FOR INPATIENT PSYCHIATRIC STABILIZATION: Vignesh is sitting up in his bed when this contract writer visits, he is watching TV this morning. CM discussed Vignesh?s stay at [facility], he states that he would like his guitar. CM spoke with Vignesh about his guitar yesterday and stated that he cannot have this at [facility] and that [facility] is not able to bring in his personal belongings from home. CM brainstormed with Vignesh other therapeutic methods for him, he states that the guitar was the only thing he could think of. CM offered coloring which Vignesh declined, he does have playing cards in his room. Care Planning Participants: Magdi ([facility]), Kalpana (RN Improvement Coordinator), Sahra (RN CC), Brea (RN), Tomeka (JIMENA). Safety plan has been established with patient, and care team, to adhere to patient goals, identify restrictions based on behavioral status, address nutrition, and determine allowed personal belongings, tools for hygiene and personal care. Determine level of activity including ambulation, level of supervision, visitors, and determine privileges based on behaviors and level of engagement by patient. Vignesh will remain at [facility] until bed placement is available. SAFETY PLAN: 1. Will remain on suicide precautions and in paper clothes. 2. Will remain in room under direct supervision of one-on-one staff at all times provided by EARLINE, WATER PLANT OPERATOR sustainability communicator. 3. May have paper cups, plates, finger foods. May have metal spoon with supervision to be accounted for by nursing staff. 4. Follow [facility] Management of the Admitted Behavioral Health Patient policy. 5. Comfort bath system only. 6. No personal belongings; may have eyeglasses with expectation they will be removed in event of behavioral escalation 7. No visitors at this time, no phone contact at this time. 8. Activities - May have coloring supplies such as crayons and paper 9. TV - May have TV and remote if available Bed Availability: Wilfred is reviewing at this time. Meredith to have web content & social media manager [facility] in regards to referral. [facility] no beds. [facility] no beds. [place] no beds. Please see Magdi Gomes note. Patient is currently involuntarily at [facility] and seeking inpatient admission when a bed becomes available. [facility] Frontline Paint Roller Cover Machine Setter will continue seeking placement. Please contact the Aeronautical Research Engineer Continuous Mining Machine Operator ([phone]) and [facility] Paint Roller Cover Machine Setter ([phone]) for any needed changes in the Safety Plan. Safety plan has been provided to interdepartmental care team including Clinical Coordinator, Nursing Improvement Coordinator.
--- NOTE | 2018-11-25 13:33 | PDOC.CMPRO ---
- If Service Date Differs Date of service: 11/25/18 Time of Service: 13:33 Care Management Progress Note INVOLUNTARY FOR INPATIENT PSYCHIATRIC STABILIZATION: Vignesh is sitting up in his bed when this global technical writer visits, he is watching TV this morning. CM discussed Vignesh?s stay at [facility], he states that he would like his guitar. CM spoke with Vignesh about his guitar yesterday and stated that he cannot have this at [facility] and that [facility] is not able to bring in his personal belongings from home. CM brainstormed with Vignesh other therapeutic methods for him, he states that the guitar was the only thing he could think of. CM offered coloring which Vignesh declined, he does have playing cards in his room. Care Planning Participants: Magdi ([facility]), Kalpana (RN Supervisor Clam Bed), Sahra (RN CC), Brea (RN), Tomeka (JIMENA). Safety plan has been established with patient, and care team, to adhere to patient goals, identify restrictions based on behavioral status, address nutrition, and determine allowed personal belongings, tools for hygiene and personal care. Determine level of activity including ambulation, level of supervision, visitors, and determine privileges based on behaviors and level of engagement by patient. Vignesh will remain at [facility] until bed placement is available. SAFETY PLAN: 1. Will remain on suicide precautions and in paper clothes. 2. Will remain in room under direct supervision of one-on-one staff at all times provided by EARLINE, FOOD OR BAGGAGE HANDLING RAMPMAN cancer center director. 3. May have paper cups, plates, finger foods. May have metal spoon with supervision to be accounted for by nursing staff. 4. Follow [facility] Management of the Admitted Behavioral Health Patient policy. 5. Comfort bath system only. 6. No personal belongings; may have eyeglasses with expectation they will be removed in event of behavioral escalation 7. No visitors at this time, no phone contact at this time. 8. Activities - May have coloring supplies such as crayons and paper 9. TV - May have TV and remote if available Bed Availability: Wilfred is reviewing at this time. Meredith to have global product manager [facility] in regards to referral. [facility] no beds. [facility] no beds. [place] no beds. Please see Magdi Gomes note. Patient is currently involuntarily at [facility] and seeking inpatient admission when a bed becomes available. [facility] Frontline Accounts Receivable Collector will continue seeking placement. Please contact the Data Collection Specialist Navigation Teacher ([phone]) and [facility] Accounts Receivable Collector ([phone]) for any needed changes in the Safety Plan. Safety plan has been provided to interdepartmental care team including Clinical Coordinator, Nursing Supervisor Clam Bed.
--- NOTE | 2018-11-25 17:47 | PGE_ITS ---
Date of Service Date of service: 11/25/18 Time of Service: 17:47 Assessment and Plan (1) Suicide attempt: Current visit: No Status: Acute Involuntary admission for 2 suicidal gestures as noted above, currently under evaluation by mental health for potential placement. Per long discussion with mental health previously, patient will need to be placed. Will continue to monitor with one-to-one observation, and current suicide precautions. Appears more agitated after finding out that he will not be discharged - initiated low dose standing seroquel with prn haldol previously. (2) Chest pain: Current visit: No Status: Acute EKG without ischemic changes - essentially normal. Refused Troponins. May be anxiety driven. Subjective Interval history since last seen: 58-year-old male with a history of bipolar disorder, as well as depression with previous suicide attempts, admitted from [facility] Emergency Department on 11/19 following a suicide attempt. Mr. Alaniz has psychiatric history as noted above, and has not been on any medications for his mental health problems. He was seen in the ED after making suicidal gestures while placing scissors to his neck after being issued a petey tion by the police for harassment of a family member. He then attempted to strangle himself in the ED with a scarf, and was caught trying to hide the drawstrings of his disposable clothing while hospitalized. He was placed on involuntary admission for referral to inpatient psychiatric treatment, which he is still awaiting. Patient continues to deny suicidality. Mental Health and Care Management actively following. No apparent placement options today. Patient is reportedly feeling better. Has began eating again. Complaint of chest pain yesterday afternoon that quickly subsided, with an essentially normal EKG - refused troponins. No other events reported. Exam Narrative Exam Narrative: General: Patient appears comfortable, AAOX3, NAD Psych: Normal mood and affect. Objective Objective Clinical Data: Vital Signs Temperature 36.4 C L 11/25/18 08:20 Temperature Source Tympanic 11/25/18 08:20 Pulse 86 11/25/18 08:20 Pulse Rhythm Regular 11/25/18 08:25 Respiratory Rate 18 11/25/18 08:20 Respiratory Effort 11/25/18 08:25 Respiratory Depth Normal 11/25/18 08:25 Respiratory Pattern Normal 11/25/18 08:25 Blood Pressure 127/80 11/25/18 08:20 Pulse Oximetry 99 02/14/19 08:20 Oxygen Delivery Method Room Air 11/25/18 08:20 Oxygen Flow Rate 0 11/25/18 08:20 Pain Level 0 11/25/18 08:20 Comment 11/24/18 08:54 Intake & Output 11/24/18 11/25/18 11/25/18 23:59 11:59 23:59 Intake Total 480 / 960 720 / 720 Balance 480 / 960 720 / 720 Intake: Oral 480 / 960 720 / 720 Other: Urine Appearance Clear Clear Comment pt gets up AD [place] to void. per CPSO CPSO reported Pt voided. Stool Size Large Stool Characteristics Soft Formed Brown Voiding Methods Toilet Toilet Toilet Laboratory Results WBC 6.84 k/cumm (4.4-10.8) 11/18/18 23:55 RBC 5.08 m/cumm (4.50-6.00) 11/18/18 23:55 Hgb 15.3 g/dL (13.5-17.5) 11/18/18 23:55 Hct 44.3 % (40.0-50.0) 11/18/18 23:55 MCV 87.2 fL (80-95) 11/18/18 23:55 MCH 30.1 pg (27.0-33.0) 11/18/18 23:55 MCHC 34.5 g/dL (32.0-36.0) 11/18/18 23:55 RDW 13.5 % (11.8-14.1) 11/18/18 23:55 Plt Count 188 x1000/uL (130-400) 11/18/18 23:55 MPV 11.2 fL (8.0-11.0) H 11/18/18 23:55 Immature Gran % 0.1 11/18/18 23:55 Neutrophils % 80.9 11/18/18 23:55 Lymphocytes % 12.7 11/18/18 23:55 Monocytes % 5.8 11/18/18 23:55 Eosinophils % 0.1 11/18/18 23:55 Basophils % 0.4 11/18/18 23:55 Absolute Neutrophils 5.52 k/cumm (1.2-6.7) 11/18/18 23:55 Absolute Lymphocytes 0.87 k/cumm (1.2-3.4) L 11/18/18 23:55 Absolute Monocytes 0.40 k/cumm (0.11-0.7) 11/18/18 23:55 Absolute Eosinophils 0.01 k/cumm (0.0-0.7) 11/18/18 23:55 Absolute Basophils 0.03 k/cumm (0.0-0.2) 11/18/18 23:55 Sodium 139 mmol/L (136-145) 11/18/18 23:55 Potassium 3.7 mmol/L (3.5-5.1) 11/18/18 23:55 Chloride 102 mmol/L (98-107) 11/18/18 23:55 Carbon Dioxide 25.2 mmol/L (21.0-32.0) 11/18/18 23:55 Anion Gap 11.8 mmol/L (3-11) H 11/18/18 23:55 BUN 17 mg/dL (7-18) 11/18/18 23:55 Creatinine 1.26 mg/dL (0.70-1.30) 11/18/18 23:55 Estimated GFR/1.73 m2 59.20 (mL/min/1.73m2) 11/18/18 23:55 Glucose 195 mg/dL (70-100) H 11/18/18 23:55 Calcium 9.7 mg/dL (8.5-10.1) 11/18/18 23:55 Troponin I Cancelled 11/25/18 05:35 TSH 2.40 uIU/mL (0.358-3.74) 11/18/18 23:55 Urine Color Yellow (Yellow) 11/20/18 14:00 Urine Clarity Clear 11/20/18 14:00 Urine pH 6.0 (5-8) 11/20/18 14:00 Ur Specific [place] >= 1.030 (1.005-1.025) H 11/20/18 14:00 Urine Protein Negative mg/dL (Negative) 11/20/18 14:00 Urine Ketones Trace mg/dL (Negative) H 11/20/18 14:00 Urine Blood Negative (Negative) 11/20/18 14:00 Urine Nitrite Negative (Negative) 11/20/18 14:00 Urine Bilirubin Negative (Negative) 11/20/18 14:00 Urine Urobilinogen 2.0 EU/dL (Up TO 0.2) H 11/20/18 14:00 Ur Leukocyte Esterase Negative (Negative) 11/20/18 14:00 Urine Glucose 100 mg/dL (Negative) 11/20/18 14:00 Urine Opiates Screen Negative (Negative) 11/19/18 00:39 Urine Methadone Screen Negative (Negative) 11/19/18 00:39 Ur Barbiturates Screen Negative (Negative) 11/19/18 00:39 Ur Tricyclics Screen Negative (Negative) 11/19/18 00:39 Ur Amphetamines Screen Negative (Negative) 11/19/18 00:39 U Benzodiazepines Scrn Negative (Negative) 11/19/18 00:39 Urine Cocaine Screen Negative (Negative) 11/19/18 00:39 Ur THC Screen Negative (Negative) 11/19/18 00:39 Ethyl Alcohol < 3.0 mg/dL (<3) 11/18/18 23:55
--- NOTE | 2018-11-25 20:26 | NUR.NOTE ---
Nursing Note: [facility] All questions answered
--- NOTE | 2018-11-25 20:27 | W.PM.DS.N ---
Date of service: 11/25/18 Time of Service: 20:28 DS: Diagnosis Discharge Diagnosis (1) Suicide attempt: Status: Acute Asessment and Plan: Patient made two serious attempts on his life both witenessed by either [facility] or [facility] medical personnel including threatening to cut his throat with scissors in front of [facility] Police (see H&P) and by strangulation w/ a scarf while in the ER. Patient has c/o of non-cardiac chest pain that was evaluated w/ serial EKG and troponins all which were negative. He was seen by the hospitalist service and started on Seroquel for agitation, depression and insomnia. He was treated w/ Haldol on an as needed basis for severe agitation. He has continued to exhibit symptoms of refractory depression including anhedonia, loss of appetite and insomnia. He has continued to act out in a sexually inappropriate language and behavior towards nursing and medical staff (female [employer]AD[employer]'s). The patient remains at high risk of completion of suicide and for that reason was admitted under involuntary placement. He was seen by [facility] health personnel and arrangements were made for inpatient care at [facility]. He was accepted by Tamara Pang NP. (2) Chest pain: Status: Acute Asessment and Plan: atypical chest pain evaluated w/ serial EKG and troponin levels. No signs of ischemia. Further evaluation can be performed on an outpatient basis upon discharge from [facility]. Discharge Plan Disposition Patient Disposition: [facility] Condition: Stable Discharge Details Reason For Visit: SUICIDAL IDEATION Admit Date/Time: 11/19/18 02:33 Admit Provider: Florin Murrieta Attending Provider: Florin Murrieta Primary Care Provider: Unknown,Unknown Hospital Course Hospital Course: Chief Complaint: Suicidal behavior, depression Narrative: See Dr. Carlos's thorough ER admission note for details. In summary this 58-year-old male with a history of bipolar disorder and previous suicide attempts who has not been on any medications for his mental health problems and recent history was brought to the emergency department after making suicidal gestures with placing scissors to his neck after he been given a police citation for harassment of a family member. He was brought to the emergency room for further evaluation and referral for inpatient psychiatric treatment. While in the emergency room he attempted to strangle himself with a scarf but the ER staff intervened and were able to remove the scar from around his neck. After removal of the scar if Dr. Carlos found no evidence of injury to his neck and was having normal respirations afterwards. Further information was obtained from his sister who who called from [place] stating that the patient frequently lies about the events in his life and she also revealed that their mother killed herself when the patient was only 15 years old. Patient continues to make statements indicating that he has intentions of killing himself and for that reason an involuntary admission was placed after an emergency evaluation examination by Dr. Carlos was carried out. Local mental health officials including Amanda Ying as well as [facility] family service caseworker Tomeka Crowley were involved in his evaluation as well. Patient is being admitted overnight to [facility] as there are no inpatient psychiatric beds currently available. Because of been placed to [facility] and to [facility]. Patient has been medically cleared by Dr. Carlos for inpatient psychiatric treatment. Screening labs including CBC, urine drug screen, blood alcohol level, BMP. Urine for drug abuse was negative for methadone, benzodiazepines, cocaine, amphetamines, THC, opiates, barbiturates, TCA. Blood alcohol level is less than 3. BMP was normal with the exception of a glucose level that was elevated at 195. CBC was within normal limits. Interval history since last seen: 58-year-old male with a history of bipolar disorder, as well as depression with previous suicide attempts, admitted from [facility] Emergency Department on 11/19 following a suicide attempt. Mr. Alaniz has psychiatric history as noted above, and has not been on any medications for his mental health problems. He was seen in the ED after making suicidal gestures while placing scissors to his neck after being issued a citation by the police for harassment of a family member. He then attempted to strangle himself in the ED with a scarf, and was caught trying to hide the drawstrings of his disposable clothing while hospitalized. He was placed on involuntary admission for referral to inpatient psychiatric treatment, which he is still awaiting. Patient continues to deny suicidality. Mental Health and Care Management actively following. No apparent placement options today. Patient has not been eating, slept on the floor last night using sheets and blanket from his bedding. He continues to state that he is being held against his will, and asking to leave. Complaint of chest pain this afternoon that quickly subsided. EKG checked and completely normal. No other events reported. Referrals were placed by [facility] family service caseworker and [facility] health personnel to [facility] and the patient was accepted for transfer on the evening of 2018 by Tamara Pang NP Home Meds and New Rx's Prescriptions: No Action No Known Home Meds RF: 0 Discharge Instructions Instructions: Depression (DC), Suicide Prevention for Adults (DC) Activity:: Activity as Tolerated Diet:: Normal Diet Exam Narrative Exam Narrative: Exam Narrative: General: Patient appears comfortable, AAOX3, NAD Psych: Normal mood and affect. DS: Data Vitals/I&O Vitals and I&O: Vital Signs Temperature 36.4 C L 11/25/18 08:20 Temperature Source Tympanic 11/25/18 08:20 Pulse 86 11/25/18 08:20 Pulse Rhythm Regular 11/25/18 18:53 Respiratory Rate 18 11/25/18 08:20 Respiratory Effort Non-Labored 11/25/18 18:53 Respiratory Depth Normal 11/25/18 18:53 Respiratory Pattern Normal 11/25/18 18:53 Blood Pressure 127/80 11/25/18 08:20 Pulse Oximetry 99 11/25/18 08:20 Oxygen Delivery Method Room Air 11/25/18 08:20 Oxygen Flow Rate 0 11/25/18 08:20 Pain Level 0 11/25/18 08:20 Comment 11/24/18 08:54 Intake & Output 11/24/18 11/25/18 11/25/18 23:59 11:59 23:59 Intake Total 480 / 960 720 / 720 Balance 480 / 960 720 / 720 Intake: Oral 480 / 960 720 / 720 Other: Urine Appearance Clear Clear Comment pt gets up AD [place] to void. per CPSO pt voiding independently in the bathroom Stool Size Large Stool Characteristics Soft Formed Brown Voiding Methods Toilet Toilet Toilet Labs on day of discharge: Labs from last 24 hours 11/25/18 11/24/18 05:35 16:30 [facility]rop[facility] Medical History History of suicide attempt (Chronic) Bipolar disorder (Chronic) Depression (Chronic) Surgical History History of eye surgery (Acute) Family History Mother Suicide Social History Smoking and Tabacco status: Never alcohol intake: never substance use type: does not use
--- NOTE | 2018-11-25 20:38 | DSE_ITS ---
Date of service: 11/25/18 Time of Service: 20:28 DS: Diagnosis Discharge Diagnosis (1) Suicide attempt: Status: Acute Asessment and Plan: Patient made two serious attempts on his life both witenessed by either [facility] or [facility] medical personnel including threatening to cut his throat with scissors in front of [facility] Police (see H&P) and by strangulation w/ a scarf while in the ER. Patient has c/o of non-cardiac chest pain that was evaluated w/ serial EKG and troponins all which were negative. He was seen by the hospitalist service and started on Seroquel for agitation, depression and insomnia. He was treated w/ Haldol on an as needed basis for severe agitation. He has continued to exhibit symptoms of refractory depression including anhedonia, loss of appetite and insomnia. He has continued to act out in a sexually inappropriate language and behavior towards nursing and medical staff (female BUDGET OFFICER's). The patient remains at high risk of completion of suicide and for that reason was admitted under involuntary placement. He was seen by [facility] health personnel and arrangements were made for inpatient care at [facility]. He was accepted by Tamara Pang NP. (2) Chest pain: Status: Acute Asessment and Plan: atypical chest pain evaluated w/ serial EKG and troponin levels. No signs of ischemia. Further evaluation can be performed on an outpatient basis upon discharge from [facility]. Discharge Plan Disposition Patient Disposition: [facility] Condition: Stable Discharge Details Reason For Visit: SUICIDAL IDEATION Admit Date/Time: 11/19/18 02:33 Admit Provider: Florin Murrieta Attending Provider: Florin Murrieta Primary Care Provider: Unknown,Unknown Hospital Course Hospital Course: Chief Complaint: Suicidal behavior, depression Narrative: See Dr. Carlos's thorough ER admission note for details. In summary this 58-year-old male with a history of bipolar disorder and previous suicide attempts who has not been on any medications for his mental health problems and recent history was brought to the emergency department after making suicidal gestures with placing scissors to his neck after he been given a police citation for harassment of a family member. He was brought to the emergency room for further evaluation and referral for inpatient psychiatric treatment. While in the emergency room he attempted to strangle himself with a scarf but the ER staff intervened and were able to remove the scar from around his neck. After removal of the scar if Dr. Carlos found no evidence of injury to his neck and was having normal respirations afterwards. Further information was obtained from his sister who who called from [place] stating that the patient frequently lies about the events in his life and she also revealed that their mother killed herself when the patient was only 15 years old. Patient continues to make statements indicating that he has intentions of killing himself and for that reason an involuntary admission was placed after an emergency evaluation examination by Dr. Carlos was carried out. Local mental health officials including Amanda Ying as well as [facility] renal case manager Tomeka Crowley were involved in his evaluation as well. Patient is being admitted overnight to [facility] as there are no inpatient psychiatric beds currently available. Because of been placed to [facility] and to [facility]. Patient has been medically cleared by Dr. Carlos for inpatient psychiatric treatment. Screening labs including CBC, urine drug screen, blood alcohol level, BMP. Urine for drug abuse was negative for methadone, benzodiazepines, cocaine, amphetamines, THC, opiates, barbiturates, TCA. Blood alcohol level is less than 3. BMP was normal with the exception of a glucose level that was elevated at 195. CBC was within normal limits. Interval history since last seen: 58-year-old male with a history of bipolar disorder, as well as depression with previous suicide attempts, admitted from [facility] Emergency Department on 11/19 following a suicide attempt. Mr. Alaniz has psychiatric history as noted above, and has not been on any medications for his mental health problems. He was seen in the ED after making suicidal gestures while placing scissors to his neck after being issued a citation by the police for harassment of a family member. He then attempted to strangle himself in the ED with a scarf, and was caught trying to hide the drawstrings of his disposable clothing while hospitalized. He was placed on involuntary admission for referral to inpatient psychiatric treatment, which he is still awaiting. Patient continues to deny suicidality. Mental Health and Care Management actively following. No apparent placement options today. Patient has not been eating, slept on the floor last night using sheets and blanket from his bedding. He continues to state that he is being held against his will, and asking to leave. Complaint of chest pain this afternoon that quickly subsided. EKG checked and completely normal. No other events reported. Referrals were placed by [facility] renal case manager and [facility] health personnel to [facility] and the patient was accepted for transfer on the evening of 2018 by Tamara Pang NP Home Meds and New Rx's Prescriptions: No Action No Known Home Meds RF: 0 Discharge Instructions Instructions: Depression (DC), Suicide Prevention for Adults (DC) Activity:: Activity as Tolerated Diet:: Normal Diet Exam Narrative Exam Narrative: Exam Narrative: General: Patient appears comfortable, AAOX3, NAD Psych: Normal mood and affect. DS: Data Vitals/I&O Vitals and I&O: Vital Signs Temperature 36.4 C L 11/25/18 08:20 Temperature Source Tympanic 11/25/18 08:20 Pulse 86 11/25/18 08:20 Pulse Rhythm Regular 11/25/18 18:53 Respiratory Rate 18 11/25/18 08:20 Respiratory Effort Non-Labored 11/25/18 18:53 Respiratory Depth Normal 11/25/18 18:53 Respiratory Pattern Normal 11/25/18 18:53 Blood Pressure 127/80 11/25/18 08:20 Pulse Oximetry 99 11/25/18 08:20 Oxygen Delivery Method Room Air 11/25/18 08:20 Oxygen Flow Rate 0 11/25/18 08:20 Pain Level 0 11/25/18 08:20 Comment 11/24/18 08:54 Intake & Output 11/24/18 11/25/18 11/25/18 23:59 11:59 23:59 Intake Total 480 / 960 720 / 720 Balance 480 / 960 720 / 720 Intake: Oral 480 / 960 720 / 720 Other: Urine Appearance Clear Clear Comment pt gets up AD [place] to void. per CPSO pt voiding independently in the bathroom Stool Size Large Stool Characteristics Soft Formed Brown Voiding Methods Toilet Toilet Toilet Labs on day of discharge: Labs from last 24 hours 11/25/18 11/24/18 05:35 16:30 Troponin I Cancelled [facility] Medical History History of suicide attempt (Chronic) Bipolar disorder (Chronic) Depression (Chronic) Surgical History History of eye surgery (Acute) Family History Mother Suicide Social History Smoking and Tabacco status: Never alcohol intake: never substance use type: does not use
--- NOTE | 2018-11-25 22:05 | PDOC.CMDIS ---
LACE Index Scoring Tool - Questions: Length of Stay (in days): 7 - 13 Acuity (Admit via E.D.?): Yes E.D. Visits: 1 - Answers: Total Score: 9 Risk of Readmission: Low Risk Care Management Discharge Reason for Hospitalization: Suicidal Ideation, EE, Involuntary for Psychiatric Stabilization. Discharge Plan: Vignesh discharged to [facility] for Psychiatric Stabilization, he remains involuntary, but was appropriate when notified of discharge and when escorted by [facility] Dept to secure transport. Patient/Family Education Needs: Process and Procedure of Psychiatric placement, safety planning, discharge considerations, patient rights. Services Needed at Discharge: Psychiatric Facility ([facility] Involuntary )
--- NOTE | 2018-11-25 22:07 | W.INMHPGNOTE ---
Date of service: 11/25/18 Time of Service: 22:07 Mental Health Crisis Note Presenting Issue How did you arrive at the ED and why did you come: Vignesh has been held on involuntary treatment status under the custody of the Department of Mental Health. Tonight he was accepted to [facility] and transport order was completed. Precipitating Factors Vignesh has presented with changing stories of suicidal ideation, planning, intent, or attempts. He has been unpredictable in the hospital and had high levels of anxiety and impulse control issues. Due to unpredictability, soft restraints were requested. Vignesh was coopertive with the transporters and walked out on his own stating, it's about time. Disposition BEHAVIOR: cooperative EYE CONTACT: good MOOD: pleasant AFFECT: full APPETITE: no issues with appetite for two days SLEEP(trouble falling/staying asleep: been falling asleep and staying asleep, reports feeling rested Plan Vignesh is being transported to [facility] via transport order through the Department of Mental Health to [facility]. He will be admitted. Signature Clinician's Name/Title: Navjot Rico [facility]
--- NOTE | 2018-11-25 22:10 | CMDISCH_ITS ---
LACE Index Scoring Tool - Questions: Length of Stay (in days): 7 - 13 Acuity (Admit via E.D.?): Yes E.D. Visits: 1 - Answers: Total Score: 9 Risk of Readmission: Low Risk Care Management Discharge Reason for Hospitalization: Suicidal Ideation, EE, Involuntary for Psychiatric Stabilization. Discharge Plan: Vignesh discharged to [facility] for Psychiatric Stabilization, he remains involuntary, but was appropriate when notified of discharge and when escorted by [facility] Dept to secure transport. Patient/Family Education Needs: Process and Procedure of Psychiatric placement, safety planning, discharge considerations, patient rights. Services Needed at Discharge: Psychiatric Facility ([facility] Involuntary )
--- NOTE | 2018-11-25 22:13 | MHPN_ITS ---
Date of service: 11/25/18 Time of Service: 22:07 Mental Health Crisis Note Presenting Issue How did you arrive at the ED and why did you come: Vignesh has been held on involuntary treatment status under the custody of the Department of Mental Health. Tonight he was accepted to [facility] and transport order was completed. Precipitating Factors Vignesh has presented with changing stories of suicidal ideation, planning, intent, or attempts. He has been unpredictable in the hospital and had high levels of anxiety and impulse control issues. Due to unpredictability, soft restraints were requested. Vignesh was coopertive with the transporters and walked out on his own stating, it's about time. Disposition BEHAVIOR: cooperative EYE CONTACT: good MOOD: pleasant AFFECT: full APPETITE: no issues with appetite for two days SLEEP(trouble falling/staying asleep: been falling asleep and staying asleep, reports feeling rested Plan Vignesh is being transported to [facility] via transport order through the Department of Mental Health to [facility]. He will be admitted. Signature Clinician's Name/Title: Navjot Rico [facility]
== END 2018-11-25 21:54 | disposition short-term general hospital (02) | DRG 885 ==
LOC: ER 11-19 02:45 → MS 11-19 13:51 → TMS 03-23 14:24
PROVIDERS: Nurse Practitioner Family; Admitting Provider Internal Medicine; Emergency Provider Physician Assistant; Visit Provider Internal Medicine
DX: T14.91XA Suicide attempt, initial encounter (principal); X83.8XXA Intentional self-harm by other specified means, initial encounter; F33.9 Major depressive disorder, recurrent, unspecified; R45.1 Restlessness and agitation; F31.9 Bipolar disorder, unspecified; G47.00 Insomnia, unspecified; R07.81 Pleurodynia; R63.0 Anorexia; Z91.5 Personal history of self-harm; Z75.1 Person awaiting admission to adequate facility elsewhere; Z78.1 Physical restraint status
CPT/HCPCS: 36415; 80048; 80307; 85027; 99219; 99231; 99232; 99233; 99238; 99285; 80320; 81003; 84443; 84484; 85025; 93005; 93010; 99284; G0378

== ENCOUNTER 2018-12-28 18:38 | Outpatient (REF) | payer MEDICARE, MEDICAID, SELFPAY ==
[2018-12-28 19:07] LABS: Cholesterol 310 mg/dL (50-200); Glucose 135 mg/dL (70-100); HDL Cholesterol 38 mg/dL (40-60); LDL CHOLESTEROL 241 mg/dL (<100); Triglyceride 152 mg/dL (30-150)
== END 2018-12-28 18:58 ==
LOC: NCHCN 18:38
PROVIDERS: Visit Provider Nurse Practitioner Family
DX: E78.00 Pure hypercholesterolemia, unspecified (principal); E11.9 Type 2 diabetes mellitus without complications
CPT/HCPCS: 80061; 82947; 83721

== ENCOUNTER 2020-06-11 15:41 | Outpatient (REF) | payer MEDICARE, MEDICAID, SELFPAY ==
[2020-06-11 21:36] LABS: ALT 33 U/L (16-63); AST 15 U/L (15-37); Albumin 4.5 g/dL (3.4-5.0); Alkaline Phosphatase 72 U/L (46-116); Anion Gap 7.6 mmol/L (3-11); BUN 16 mg/dL (7-18); Bilirubin, Total 1.7 mg/dL (0.2-1.0); CO2 30.4 mmol/L (21.0-32.0); CREATININE 1.23 mg/dL (0.70-1.30); Calcium 9.3 mg/dL (8.5-10.1); Chloride 105 mmol/L (98-107); Glucose 193 mg/dL (74-106); HDL Cholesterol 36 mg/dL (40-60); LDL CHOLESTEROL 201 mg/dL (<100); Magnesium 2.4 mg/dL (1.8-2.4); Potassium 4.4 mmol/L (3.5-5.1); Sodium 143 mmol/L (136-145); TSH 3.71 uIU/mL (0.36-3.74); Total Protein 7.1 g/dL (6.4-8.2)
[2020-06-11 21:39] LABS: Vitamin D 25 Total 6.3 ng/ml (30-100)
== END 2020-06-11 16:01 ==
LOC: NCHCN 15:41
PROVIDERS: PCP Nurse Practitioner Family; Visit Provider Nurse Practitioner Family
DX: E11.9 Type 2 diabetes mellitus without complications (principal); E78.00 Pure hypercholesterolemia, unspecified; E55.9 Vitamin D deficiency, unspecified
CPT/HCPCS: 80053; 82306; 83721; 83718; 83735; 84443

== ENCOUNTER 2020-07-30 11:46 | Outpatient (REF) | payer MEDICARE, MEDICAID, SELFPAY ==
--- NOTE | 2020-07-30 11:30 | SKI_PTH ---
PATIENT: Vignesh Alaniz LOC: [facility] U#:[id number] AGE/SX: 60/M ROOM: RE07/30/[address]: Piyush Lee DO : 1960 BED: DIS: 07/30/2020 SPEC #: [id number] RECD: 07/30/20 18:08 STATUS: GERMAINE RETrish #: [id number] FIORDALIZA: 07/30/20 11:[address]: Piyush Lee DEPT: Surgical Specimen RECD BY: Tala Garcia ENTERED: 07/30/20 18:08 SP TYPE: SMILEY TREVINO DR: Ayala Kauffman Tissues: 1 - SKIN BIOPSY(SHAVE/PUNCH) Procedures: SKIN LEVEL 4 Comments: [id number]
== END 2020-07-30 12:06 ==
LOC: LBN 11:46
PROVIDERS: PCP Nurse Practitioner Family; Visit Provider Otolaryngology Otolaryngology/Facial Plastic Surgery
DX: D04.62 Carcinoma in situ of skin of left upper limb, including shoulder (principal)
CPT/HCPCS: 88305

== ENCOUNTER 2020-10-15 13:02 | Outpatient (REF) | payer MEDICARE, MEDICAID, SELFPAY ==
[2020-10-15 20:38] LABS: ALT 51 U/L (16-63); AST 21 U/L (15-37); HDL Cholesterol 40 mg/dL (40-60); LDL CHOLESTEROL 130 mg/dL (<100)
[2020-10-15 21:06] LABS: Creatine Kinase 148 U/L (39-308)
== END 2020-10-15 13:22 ==
LOC: NCHCN 13:02
PROVIDERS: PCP Nurse Practitioner Family; Visit Provider Nurse Practitioner Family
DX: E11.9 Type 2 diabetes mellitus without complications (principal); E78.00 Pure hypercholesterolemia, unspecified; E55.9 Vitamin D deficiency, unspecified
CPT/HCPCS: 82550; 83721; 83718; 84450; 84460

== ENCOUNTER 2022-03-11 21:27 | Emergency (ER) | payer MEDICARE, MEDICAID, SELFPAY ==
[2022-03-11 21:30] VITALS: BP 163/78; PULSE 89; RESP 18; TEMP 36; O2SAT 99
--- NOTE | 2022-03-11 21:30 | ED.GENADUL_ITS ---
Discharge Plan Disposition Patient Disposition: HOME Discharge Details Clinical Impression: Pain in a tooth or teeth Primary Care Provider: Ayala Kauffman ED Provider: Adolph Mcnair Home Meds and New Rx's Prescriptions: New amoxicillin 500 mg capsule 500 mg PO QID Qty: 30 0RF Discharge Instructions Instructions: Toothache (ED) Additional Instructions: Please see antibiotic as prescribed, amoxicillin 500 mg every 6 hours. Clinical: 1 g every 6 hours for the pain. You may also take ibuprofen 400 mg every 8 hours for the pain. Please follow-up with your doctor tomorrow as yenny iverson. Medical Decision Making Patient with dental pain. I do not appreciate any abscess. At this time we will continue to treat preventatively for amoxicillin therapy. He was given a dental block. He has had both good relief. He is being discharged after having a loading dose of amoxicillin in the emergency department HPI General Date/Time Provider Initiated Documentation: 03/11/22 21:30 . HPI Narrative: 61-year-old presents to the emergency department with 1 day history of intermittent teeth pain. Upper first molar and the lower right premolar have been given and intermittent pain throughout the day. No precipitating factors. No alleviating factors. No aggravating factors. No trauma. he has a schedule appointment with dentist tomorrow. No facial swelling. No fevers no chills. No difficulty swallowing. Severity moderate , he says he took some Aleve prior to coming to the emergency department without any relief. Related Data Home Medications Medication Instructions Recorded Confirmed amoxicillin 500 mg capsule 500 mg PO QID #30 caps 03/11/22 Previous Rx's Medication Instructions Recorded amoxicillin 500 mg capsule 500 mg PO QID #30 caps 03/11/22 Allergies Allergy/AdvReac Type Severity Reaction Status Date / Time No Known Allergies Allergy Unverified 03/11/22 21:33 General LILIANA: 2 Review of Systems Narrative: Constitutional negative for fevers and chills. HEENT no neck pain. No difficulty ranging his neck. No malocclusion. Respiratory no shortness of breath no difficulty breathing. Skin no rashes. Neuro neuro no headaches h ematological not on blood thinners PFSH All Active Problems (Updated 03/11/22 @ 21:56 by Adolph Mcnair MD) Pain in a tooth or teeth (Acute) Bipolar 1 disorder (Acute) Nevus (Acute) Neoplasm of unspecified behavior of bone, soft tissue, and skin (Acute) Chest pain (Acute) DVT prophylaxis (Acute) Urine finding (Acute) Discharge planning issues (Acute) Major depression, recurrent (Acute) Suicide attempt (Acute) History of suicide attempt (Chronic) Medical History (Updated 03/11/22 @ 21:56 by Adolph Mcnair MD) Bipolar disorder Depression Surgical History History of eye surgery Family History Mother Suicide Social History Smoking/Tobacco Use Status: Never Smoking risk assessment performed?: Yes Alcohol Intake: never Substance use type: does not use Do you feel safe in your relationship?: Yes Exam Narrative Exam Narrative: Awake alert [place] x3 mild discomfort, cooperative HEENT. PERRLA EOMI MMM, floor the mouth normal, he is got several teeth with caries. Tooth #3 and tooth 30 of mild discomfort to percussion. Gums appear normal. No trismus. Neck supple Skin no rashes Normal work of breathing normal cap refill Procedures Other Description: dentalblocks- two alveaolar blocks werecadministered with lido 1% w epi. tolerated wrell. teeth 3 and 30.
[2022-03-11] MEDS: Amoxicillin 500 MG CAP PO (22:13)
[2022-03-11] MEDS: Amoxicillin 500 MG CAP 1500 MG PO (22:13)
== END 2022-03-11 22:15 | disposition home or self-care (01) ==
PROVIDERS: Emergency Provider Emergency Medicine; PCP Nurse Practitioner Family
DX: R68.84 Jaw pain (principal); D48.0 Neoplasm of uncertain behavior of bone and articular cartilage
CPT/HCPCS: 64400

== ENCOUNTER 2022-09-16 18:29 | Outpatient (REF) | payer MEDICARE, MEDICAID, SELFPAY ==
[2022-09-16 21:23] LABS: Hemoglobin A1C 10.8 % (<5.7)
[2022-09-16 21:24] LABS: ALT 42 U/L (16-63); AST 26 U/L (15-37); Albumin 4.1 g/dL (3.4-5.0); Alkaline Phosphatase 107 U/L (46-116); Anion Gap 9.3 mmol/L (3-11); BUN 19 mg/dL (7-18); Bilirubin, Total 0.9 mg/dL (0.2-1.0); CO2 27.7 mmol/L (21.0-32.0); Calcium 8.7 mg/dL (8.5-10.1); Calculated LDL 146 mg/dL (<100); Chloride 100 mmol/L (98-107); Cholesterol 235 mg/dL (<200); Estimated GFR 86.16 (mL/min/1.73m2); Glucose 216 mg/dL (74-106); HDL Cholesterol 33 mg/dL (40-60); Potassium 4.1 mmol/L (3.5-5.1); Sodium 137 mmol/L (136-145); Total Protein 7.2 g/dL (6.4-8.2); Triglyceride 281 mg/dL (<150)
[2022-09-16 21:50] LABS: COMMENT (LAB VIEW ONLY) 106.62 mg/dL; Microalb ug/mg Crea 100.8 ug/mg Cr
== END 2022-09-16 18:30 | disposition home or self-care (01) ==
LOC: LBN 18:29
PROVIDERS: PCP Nurse Practitioner Family; Visit Provider Family Medicine
DX: E11.9 Type 2 diabetes mellitus without complications (principal); E78.00 Pure hypercholesterolemia, unspecified
CPT/HCPCS: 80053; 80061; 82043; 82570; 83036

== ENCOUNTER 2023-02-24 00:51 | Outpatient (CLI) | payer MEDICARE, MEDICAID, SELFPAY ==
--- NOTE | 2023-02-24 | ETT_ITS ---
APPROVED REPORT Exam: Exercise Treadmill Patient Location: Out-Patient Room/Bed: Stress Nurse: Nadia Perez RN Ordering Provider:DELON BANERJEE, Contact Number: [phone] BMI: 25.38 Baseline Rhythm: Sinus Rhythm Indications: Left chest pain, uncontrolled DM Medical History Medical History: Bipolar I, depression, SI, ETOH abuse, DM, HLD Cardiac Medications: Januvia, atorvastatin, lisinopril Allergies: NKA Cardiac Risk Factors: Diabetes, HLD, 2nd hand smoke exposure Previous Cardiac Procedures: None Pretest Chest Pain Characteristics: None Exercise History: None Physical Disabilities: None Lung Sounds: Clear to auscultation Heart Sounds: Regular Stress Test Details Test: Exercise stress testing was performed using a Jose protocol. Rest Stress HR Resting HR Supine: 69 bpm Max Heart Rate (APMHR): 160 bpm Resting HR Standin bpm Target HR (85% APMHR): 136 bpm Max HR Achieved: 140 bpm % of APMHR: 88 Recovery HR: 62 bpm HR response to stress: Normal HR response to stress BP Resting BP Supine: 110/72 mmHg Resting BP Standin/72 mmHg Max BP: 170/88 mmHg Recovery BP: 118/70 mmHg BP response to stress: Normal blood pressure response to stress. ECG Resting ECG: Sinus Rhythm Ectopy: rare PVC Stress ECG: Sinus Tachycardia ST Change: No significant ST segment changes noted Arrhythmia: None Comment: Significant artifact noted during exercise. Recovery ECG: Sinus Rhythm Recovery ST Change: No significant ST segment changes noted Recovery Arrhythmia: None Clinical Reason for Termination: Target HR Achieved, , Fatigue, Dyspnea Stress Symptoms: General Fatigue, Dyspnea Exercise duration: 4 min29 sec Highest Stage Reached: Stage 2: 2.5 mph at 12% grade. Exercise capacity: 7 METs Angina Score: None Kirkland Treadmill Score: 4 Rate Pressure Product: [id number] Stress ECG Conclusion 1. The resting electrocardiogram was within normal limits 2. Patient exercised on the Jose protocol and completed a workload of 7 METS, limited by fatigue 3. Normal heart rate and blood pressure response to exercise. The patient achieved 88% of predicted heart rate for age 4. There was no electrocardiographic evidence of myocardial ischemia 5. There were rare PVCs Kirk[place] Treadmill Score is 4 which is Moderate risk. Stress Test Summary STAGE Time (mins) Speed (mph) Grade (%) HR BP SpO2 SYMPTOMS METS Supine 69 110/72 97 Standing 86 110/782 1 3 1.7 10 70 120/78 4.5 2 6 2.5 12 140 170/88 7 1 min recovery 67 130/70 3 min recovery 62 118/70
== END 2023-02-24 01:11 ==
LOC: DI 00:52
PROVIDERS: PCP Nurse Practitioner Family; Visit Provider Nurse Practitioner Family
DX: R07.89 Other chest pain (principal)
CPT/HCPCS: 93016; 93018; 93017

== ENCOUNTER 2023-05-16 07:00 | Emergency (ER) | payer MEDICARE, MEDICAID, SELFPAY ==
[2023-05-16] VITALS (72 sets, daily range): BP systolic 94–165; BP diastolic 60–100; PULSE 51–104; RESP 10–24; TEMP 37.2; O2SAT 90–98
--- NOTE | 2023-05-16 07:00 | RT.EKG_ITS ---
APPROVED REPORT Exam: Resting ECG Reason for Exam: chest pain Patient Location: E HR:65 bpm ECG Measurements Heart Rate 65 AXIS VA 121 P -66 QRSd 89 QRS 33 QT 407 T 68 QTc 423 Conclusion Sinus or ectopic atrial rhythm...P axis (-45,135)
--- NOTE | 2023-05-16 07:22 | ED.GENADUL_ITS ---
Discharge Plan Discharge Details Chief Complaint: Chest Pain Primary Care Provider: Ayala Kauffman ED Provider: Landon Balderas Home Meds and New Rx's Prescriptions: No Action amoxicillin 500 mg capsule 500 mg PO QID Qty: 30 0RF lisinopril 10 mg Tablet 10 mg PO DAILY Medical Decision Making ECG Data Attestation: I personally reviewed and interpreted this ECG (s) as follows: Prior ECG tracings: available for review Interpretation: Heart rate 65 normal sinus rhythm no acute ST-T changes HPI General Date/Time Provider Initiated Documentation: 05/16/23 07:22 . HPI Narrative: Patient presents to the emergency department complaining of epigastric and midsternal chest pain for 1 week reports the pain comes and goes and its at pain that exacerbates that he states that it is about a 6/10 pain today the pain was rating to his right arm. Denies any fever denies any chills denies any nausea states the pain does not exacerbate when he eats. Related Data Home Medications Medication Instructions Recorded Confirmed amoxicillin 500 mg capsule 500 mg PO QID #30 caps 03/11/22 lisinopril 10 mg tablet 10 mg PO DAILY 05/16/23 05/16/23 Previous Rx's Medication Instructions Recorded amoxicillin 500 mg capsule 500 mg PO QID #30 caps 03/11/22 Allergies Allergy/AdvReac Type Severity Reaction Status Date / Time No Known Allergies Allergy Unverified 03/11/22 21:33 General Stated Complaint: Chest Pain LILIANA: 3 Review of Systems Narrative: Review of Systems: Constitutional: No fevers, chills, sweats Eye: No recent visual problems ENT: No ear pain, nasal congestion, sore throat Respiratory: No shortness of breath, cough Cardiovascular: palpitations, syncope Gastrointestinal: No nausea, vomiting, diarrhea Genitourinary: No hematuria Allan/Lymph: Negative for bruising tendency, swollen lymph glands Endocrine: Negative for excessive thirst, excessive hunger Musculoskeletal: No back pain, neck pain, joint pain, muscle pain, decreased range of motion Integumentary: No rash, pruritus, abrasions Neurologic: Alert & oriented X 4 Psychiatric: No anxiety, depression PFSH All Active Problems Bipolar 1 disorder (Acute) Nevus (Acute) Neoplasm of unspecified behavior of bone, soft tissue, and skin (Acute) Chest pain (Acute) DVT prophylaxis (Acute) Urine finding (Acute) Discharge planning issues (Acute) Major depression, recurrent (Acute) Suicide attempt (Acute) History of suicide attempt (Chronic) Medical History Bipolar disorder Depression Surgical History History of eye surgery Family History Mother Suicide Social History Smoking/Tobacco Use Status: Never Smoking risk assessment performed?: Yes Alcohol Intake: never Substance use type: does not use Do you feel safe in your relationship?: Yes Exam Narrative Exam Narrative: Exam; vitals signs as reported above normal Constitutional; In no acute distress, afebrile General: cooperative, healthy appearing, comfortable and no acute distress HEENT: Head: normal to inspection, no palpable skull fracture and normocephalic atraumatic Eyes: l: appearance normal, both eyes and all related structures Pupils: PERRL : EOM intact bilaterally Direct ophthalmoscopy: normal light reflex, normal conjunctiva, normal visual acuity Neck no JVD, supple non tender Neck: normal visual inspection, full ROM and no lymphadenopathy Chest: normal inspection of the chest Respiratory : normal respiratory effort and able to speak in complete sentences no wheezing no rales Cardio Rate: regular rate Rhythm: regular rhythm normal heart sounds S1 and S2 no murmurs, gallops, or rubs GI : normal to inspection, normal bowel sounds, soft, non tender, non distended, no organomegaly Back/Spine/ no CVA tenderness Thoracic/Lumbar Spine: no tenderness or deformities Skin no rashes or lesions Neuro: patient alert and no meningeal signs, Cranial Nerves: CN's II-XI intact bilaterally, Cognition: normal cognition, Speech: speech normal, Gait: normal gait, Depp tendon reflexes normal 2+ Extremities, no edema, full range of motion, normal strength Course Vital Signs Vital signs: Vital Signs Pulse 64 05/16/23 07:00 Respiratory Rate 20 05/16/23 07:00 Blood Pressure 146/83 H 05/16/23 07:00 Pulse Oximetry 98 05/16/23 07:00 Temperature Source Oral 05/16/23 07:00 Pulse 64 05/16/23 07:00 Respiratory Rate 20 05/16/23 07:13 Respiratory Effort Normal, Non-Labored 05/16/23 07:13 Respiratory Depth Normal 05/16/23 07:13 Respiratory Pattern Normal 05/16/23 07:13 Blood Pressure 146/83 H 05/16/23 07:00 Blood Pressure Position Supine 05/16/23 07:00 Pulse Oximetry 98 05/16/23 07:00 Oxygen Delivery Method Room Air 05/16/23 07:00 Oxygen Flow Rate 0 05/16/23 07:00 Pain Level 1 05/16/23 07:13 Sign Out Sign Out Data: Sign Out Comment: Patient presents with chest pain for 1 week EKG is within normal limits he will need labs which included 2 troponins that are pending Last updated by Landon Balderas MD at 05/16/23 07:48
--- NOTE | 2023-05-16 07:30 | DI.RAD_ITS ---
Exam(s) XR PORTABLE CHEST AP EXAM: XR PORTABLE CHEST AP CLINICAL HISTORY: chest pain TECHNIQUE: 2D digital imaging was performed. COMPARISON: No exams were available for comparison FINDINGS: LUNGS: Clear. No pleural abnormality seen. HEART: Normal size. AORTA: Normal diameter. BONES: Unremarkable for age. Soft tissues: Unremarkable. IMPRESSION: No acute findings. DATA REPOSITORY: RADIATION DOSE DELIVERED:
[2023-05-16 07:46] LABS: Abs Immature Grans 0.02 10^3/uL (0.0-0.06); Absolute Basophil Count 0.07 10^3/uL (0.0-0.2); Absolute Eosinophil Count 0.04 10^3/uL (0.0-0.7); Absolute Lymphocyte Count 2.03 10^3/uL (1.2-3.4); Absolute Monocyte Count 0.42 10^3/uL (0.1-0.8); Absolute Neutrophil Count 3.75 10^3/uL (1.2-6.7); Basophils % 1.1; Eosinophils % 0.6; HCT 47.9 % (40.0-50.0); HGB 16.5 g/dL (13.5-17.5); Immature Grans % 0.3; Lymphocytes % 32.1; MCH 28.8 pg (27.0-33.0); MCHC 34.4 % (32.0-36.0); MCV 84 fL (80-95); MPV 11.2 fL (8.0-11.0); Monocytes % 6.6; Neutrophils % 59.3; Platelet Count 184 10^3/uL (130-400); RBC 5.72 10^6/uL (4.36-5.78); RDW 12.7 % (11.8-14.1); RDW-SD 38.9 fL; WBC 6.33 10^3/uL (4.4-10.8)
[2023-05-16 08:04] LABS: ALT 27 U/L (16-63); AST 10 U/L (15-37); Albumin 4.2 g/dL (3.4-5.0); Alkaline Phosphatase 112 U/L (46-116); Anion Gap 13.2 mmol/L (3-11); BUN 16 mg/dL (7-18); Bilirubin, Total 1.2 mg/dL (0.2-1.0); CO2 24.8 mmol/L (21.0-32.0); CREATININE 1.3 mg/dL (0.70-1.30); Calcium 9.3 mg/dL (8.5-10.1); Chloride 100 mmol/L (98-107); Estimated GFR 62.89 (mL/min/1.73m2); Glucose 346 mg/dL (74-106); Potassium 3.5 mmol/L (3.5-5.1); Sodium 138 mmol/L (136-145); Total Protein 7.2 g/dL (6.4-8.2); Troponin I 55 ng/L (<or=60)
[2023-05-16 08:16] LABS: Lipase 62 U/L (16-77)
--- NOTE | 2023-05-16 08:21 | W.EDPROG ---
Date of service: 05/16/23 Time of Service: 08:21 Medical Decision Making This patient was signed out to me. Please see previous notes for H&P and initial eval. In brief, 62yo M arrives with one week of intermittent substernal chest pain. Nitro and ASA (uncertain dose) prior to arrival. EKG with no ischemic changes, labs pending. -CXR as below, no pneumonia or pneumothorax. -Labs reviewed; CBC & CMP with no actionable abnormalities, Mg normal, initial troponin negative. Glucose elevated at 346, patient reports hx of diabetes currently on metformin. -On reassessment patient reports no chest pain or shortness of breath. -Delta troponin elevated at 117. Patient reports taking one or two baby aspirin; given 243mg ASA here and started on lovenox for NSTEMI with rising troponins. Repeat EKG sinus bradycardia, no ST segment or T wave abnormalities to suggest occlusive SC, does have inverted T in V2 which is new compared to 0700 EKG. [facility] records reviewed and notable for treadmill EKG exercise stress test in February of 2023 with no ischemic changes. Reports intermittent chest pain lasting around 5 minutes a time which resolves without intervention. Discussed with [facility] cardiology with plan for Plavix load and transfer. Transferred to [facility]. Imaging Data Radiologic Study: Imaging: X-Ray Radiologist's impression: IMPRESSION: No active disease in the chest. Lab Data Lab results reviewed: Yes I reviewed the patient's lab results. Labs: Laboratory Tests Range/Units 05/16/23 05/16/23 05/16/23 07:13 07:13 08:00 WBC (4.4-10.8) 10^3/uL 6.33 RBC (4.36-5.78) 10^6/uL 5.72 Hgb (13.5-17.5) g/dL 16.5 Hct (40.0-50.0) % 47.9 MCV (80-95) fL 84 MCH (27.0-33.0) pg 28.8 MCHC (32.0-36.0) % 34.4 RDW (11.8-14.1) % 12.7 Plt Count (130-400) 10^3/uL 184 MPV (8.0-11.0) fL 11.2 H Immature Gran % 0.3 Neutrophils % 59.3 Lymphocytes % 32.1 Monocytes % 6.6 Eosinophils % 0.6 Basophils % 1.1 Nucleated RBC % (0.0-0.3) % 0.0 Absolute Neutrophils (1.2-6.7) 10^3/uL 3.75 Absolute Lymphocytes (1.2-3.4) 10^3/uL 2.03 Absolute Monocytes (0.1-0.8) 10^3/uL 0.42 Absolute Eosinophils (0.0-0.7) 10^3/uL 0.04 Absolute Basophils (0.0-0.2) 10^3/uL 0.07 Sodium (136-145) mmol/L 138 Potassium (3.5-5.1) mmol/L 3.5 Chloride (98-107) mmol/L 100 Carbon Dioxide (21.0-32.0) mmol/L 24.8 Anion Gap (3-11) mmol/L 13.2 H BUN (7-18) mg/dL 16 Creatinine (0.70-1.30) mg/dL 1.3 Est GFR (CKD-EPI 2020) (mL/min/1.73m2) 62.89 Glucose (74-106) mg/dL 346 H Calcium (8.5-10.1) mg/dL 9.3 Magnesium (1.8-2.4) mg/dL 2.0 Total Bilirubin (0.2-1.0) mg/dL 1.2 H AST (15-37) U/L 10 L ALT (16-63) U/L 27 Alkaline Phosphatase (46-116) U/L 112 Troponin I (<or=60) ng/L 55 Total Protein (6.4-8.2) g/dL 7.2 Albumin (3.4-5.0) g/dL 4.2 Lipase (16-77) U/L 62 Cancelled Sign Out Sign Out Data: Sign Out Comment: Patient presents with chest pain for 1 week EKG is within normal limits he will need labs which included 2 troponins that are pending Last updated by Landon Balderas MD at 05/16/23 07:48 Discharge Plan Disposition Patient Disposition: Transfer-Acute Inpatient Care Specific Acute Inpt Facility: [facility] Condition: Serious Discharge Details Chief Complaint: Chest Pain Clinical Impression: Chest pain, Acute non-ST elevation myocardial infarction (NSTEMI) Primary Care Provider: Ayala Kauffman ED Provider: Basia Lindsey Home Meds and New Rx's Prescriptions: No Action lisinopril 10 mg Tablet 10 mg PO DAILY Januvia 100 mg Tablet 100 mg PO QPM atorvastatin 20 mg Tablet 20 mg PO QPM cholecalciferol (vitamin D3) 25 mcg (1,000 unit) Tablet 25 mcg PO BID
--- NOTE | 2023-05-16 08:47 | DI.VRAD_ITS ---
PROCEDURE INFORMATION: Exam: XR Chest Exam date and time: 05/16/2023 8:11 AM Age: 62 years old Clinical indication: Shortness of breath TECHNIQUE: Imaging protocol: Radiologic exam of the chest. Views: 1 view. COMPARISON: No relevant prior studies available. FINDINGS: Lungs: The lungs are clear and well aerated bilaterally. There is no consolidation, infiltrate, or pulmonary edema. The pulmonary vasculature is normal in caliber. Pleural spaces: Unremarkable. No pleural effusion or pneumothorax. Heart/Mediastinum: Heart size and cardiomediastinal contours are normal. Bones/joints: Unremarkable. IMPRESSION: No active disease in the chest. Dictated and Authenticated by: Ashly Burris MD. Ordering:MITCHEL Navarrete MD
--- NOTE | 2023-05-16 10:30 | RT.EKG_ITS ---
APPROVED REPORT Exam: Resting ECG Reason for Exam: chest pain Patient Location: E HR:59 bpm ECG Measurements Heart Rate 59 AXIS FL 152 P 48 QRSd 90 QRS 6 QT 410 T 62 QTc 406 Conclusion Sinus bradycardia...rate< 60 Inverted T wave V2 new compared to prior 0700 05/17/[address] segment or T wave abnormalities to suggest occlusive CO
[2023-05-16 10:41] LABS: Troponin I 117 ng/L (<or=60)
[2023-05-16] MEDS: Aspirin 81 MG CHEW 243 MG CH (11:14)
[2023-05-16] MEDS: Enoxaparin 80 MG/0.8 ML SYR SC (11:17)
[2023-05-16] MEDS: Clopidogrel 300 MG TAB PO (13:26)
== END 2023-05-16 15:45 | disposition short-term general hospital (02) ==
PROVIDERS: Emergency Medicine Emergency Medical Services; Emergency Provider Student in an Organized Health Care Education/Training Program; PCP Nurse Practitioner Family
DX: R07.9 Chest pain, unspecified (principal); I21.4 Non-ST elevation (NSTEMI) myocardial infarction; R00.1 Bradycardia, unspecified
CPT/HCPCS: 36415; 80053; 83690; 93005; 96372; 99285; 71045; 83735; 84484; 85025; 93010; J1650

== ENCOUNTER 2023-06-10 11:28 | Outpatient (RCR) | payer MEDICARE, MEDICAID, SELFPAY | END 2023-06-11 23:59 | disposition home or self-care (01) | LOC: CR 11:28 | PROVIDERS: PCP Nurse Practitioner Family; Visit Provider Internal Medicine Cardiovascular Disease ==

== ENCOUNTER 2023-07-10 13:00 | Outpatient (RCR) | payer MEDICARE, MEDICAID, SELFPAY | END 2023-07-11 23:59 | disposition home or self-care (01) | LOC: CR 13:00 | PROVIDERS: PCP Nurse Practitioner Family; Visit Provider Internal Medicine Cardiovascular Disease | DX: Z95.1 Presence of aortocoronary bypass graft (principal); I25.2 Old myocardial infarction; Z51.89 Encounter for other specified aftercare | CPT/HCPCS: S9472 ==

== ENCOUNTER 2023-08-10 13:08 | Outpatient (RCR) | payer MEDICARE, MEDICAID, SELFPAY | END 2023-08-11 23:59 | disposition home or self-care (01) | LOC: CR 13:08 | PROVIDERS: PCP Nurse Practitioner Family; Visit Provider Internal Medicine Cardiovascular Disease | DX: I25.2 Old myocardial infarction (principal); Z95.1 Presence of aortocoronary bypass graft; Z51.89 Encounter for other specified aftercare | CPT/HCPCS: S9472 ==

== ENCOUNTER 2023-09-09 13:27 | Outpatient (RCR) | payer MEDICARE, MEDICAID, SELFPAY | END 2023-09-10 23:59 | disposition home or self-care (01) | LOC: CR 13:27 | PROVIDERS: PCP Nurse Practitioner Family; Visit Provider Internal Medicine Cardiovascular Disease | DX: I25.10 Atherosclerotic heart disease of native coronary artery without angina pectoris (principal); I25.2 Old myocardial infarction; Z95.1 Presence of aortocoronary bypass graft; Z51.89 Encounter for other specified aftercare | CPT/HCPCS: S9472 ==

== ENCOUNTER 2023-09-28 14:11 | Outpatient (RCR) | payer MEDICARE, MEDICAID, SELFPAY | END 2023-10-11 23:59 | disposition home or self-care (01) | LOC: CR 14:11 | PROVIDERS: PCP Nurse Practitioner Family; Visit Provider Internal Medicine Cardiovascular Disease | DX: Z95.1 Presence of aortocoronary bypass graft (principal); I25.2 Old myocardial infarction; Z51.89 Encounter for other specified aftercare | CPT/HCPCS: S9472 ==

== ENCOUNTER 2024-01-24 10:30 | Inpatient (IN) | payer MEDICARE, MEDICAID, SELFPAY ==
[2024-01-24] VITALS (45 sets, daily range): BP systolic 105–159; BP diastolic 60–92; PULSE 45–73; RESP 13–21; TEMP 36.2–36.9; O2SAT 96–98
--- NOTE | 2024-01-24 10:30 | RT.EKG_ITS ---
APPROVED REPORT Exam: Resting ECG Reason for Exam: chest pain Patient Location: E HR:53 bpm ECG Measurements Heart Rate 53 AXIS [place] 158 P 38 QRSd 90 QRS -26 QT 460 T 46 QTc 432 Conclusion Sinus bradycardia...rate< 60 Inferior infarct, old...Q >35mS, II III aVF
--- NOTE | 2024-01-24 10:41 | ED.GENADUL_ITS ---
Discharge Plan Disposition Patient Disposition: Admit to [facility] Condition: Stable Discharge Details Chief Complaint: Chest Pain Clinical Impression: Cholecystitis Primary Care Provider: Ayala Kauffman ED Provider: Erik Sood Home Meds and New Rx's Prescriptions: No Action metoprolol tartrate 25 mg tablet 25 mg PO Q8H ezetimibe-rosuvastatin 10-40 mg tablet 1 tab PO DAILY aspirin [Adult Aspirin Regimen] 81 mg tablet,delayed release (DR/EC) 81 mg PO DAILY Jardiance 25 mg tablet 25 mg PO DAILY glipizide 2.5 mg tablet 2.5 mg PO BID lisinopril 10 mg Tablet 10 mg PO DAILY Januvia 100 mg Tablet 100 mg PO QPM atorvastatin 20 mg Tablet 20 mg PO QPM cholecalciferol (vitamin D3) 25 mcg (1,000 unit) Tablet 25 mcg PO BID HPI General Date/Time Provider Initiated Documentation: 01/24/24 10:33 . HPI Narrative: 63 year-old male presents to ED today by POV/ambulating with a chief complaint of abdominal pain, one episode a couple weeks ago, then again this past Thursday lasting all night, and then starting again this morning around [id number], with no current pain in ED- points to his suprapubic area to localize the pain, and endorses some mid-back pain. Quality described as burning quality, aching, no radiation to dizziness, diaphoresis, syncope, denies sternal chest pain beyond what he usually has due to CABGx3 with sternotomy last year. Patient states he has some chronic SOB and was given an incentive spirometer to help his lung function. Severity is described as 9/10 at its worst, currently 0/10. Palliating factors include tried Maalox and TUMS at home as he felt he could be having ulcer-like pain. Provoking factors include nothing specific. Patient not anticoagulated. Related Data Home Medications Medication Instructions Recorded Confirmed atorvastatin 20 mg tablet 20 mg PO QPM 05/16/23 01/24/24 cholecalciferol (vitamin D3) 25 25 mcg PO BID 05/16/23 01/24/24 mcg (1,000 unit) tablet lisinopril 10 mg tablet 10 mg PO DAILY 05/16/23 01/24/24 sitagliptin phosphate 100 mg 100 mg PO QPM 08/05/23 04/14/24 tablet (Januvia) aspirin 81 mg tablet,delayed 81 mg PO DAILY 01/24/24 01/24/24 release (Adult Aspirin Regimen) empagliflozin 25 mg tablet 25 mg PO DAILY 01/24/24 01/24/24 (Jardiance) ezetimibe 10 mg-rosuvastatin 40 mg 1 tab PO DAILY 01/24/24 01/24/24 tablet glipizide 2.5 mg tablet 2.5 mg PO BID 01/24/24 01/24/24 metoprolol tartrate 25 mg tablet 25 mg PO Q8H 01/24/24 01/24/24 Allergies Allergy/AdvReac Type Severity Reaction Status Date / Time No Known Allergies Allergy Unverified 01/24/24 11:05 General Stated Complaint: Chest Pain LILIANA: 3 Review of Systems All systems reviewed & are unremarkable except as noted in HPI and below Exam Narrative Exam Narrative: GENERAL APPEARANCE: Well-nourished, non-toxic, awake and alert, atraumatic, no acute distress. SKIN: Warm, pink, dry, intact, without rashes/lesions/ulcerations. HEAD: Normocephalic, atraumatic, normal hair distribution for gender/age. EYES: Pupils PERRLA, EOMs intact without nystagmus, normal conjunctiva, no exudates on lids/lashes. ENT: Nares patent, no circumoral cyanosis, no facial swelling NECK: Supple, trachea midline, painless cervical ROM. LUNGS/CHEST: Lungs CTA bilaterally- no rhonchi/rales/wheezes diffusely, non- labored respirations, normal A/P diameter, symmetrical expansion, no chest wall deformity HEART (CV/PV): Regular rate and rhythm without murmur, no peripheral edema, no JVD. ABDOMEN: Soft, non-distended, no guarding, some bladder distention to palpation and suprapubic tenderness without peritoneal signs, no CVA tenderness to percussion bilaterally MSK: Normal ROM, no swelling/deformity to bilateral UEs or LEs, moving all extremities without weakness, no cyanosis, spine midline without tenderness, normal curvature, upper lumbar central back pain without vertebral crepitus/step-offs, palpation does not change the pain. NEURO: Mental Status AAOx4 - alert to person, place, time, events No facial droop, no forehead involvement. Motor: No focal weakness - strength 5/5 in bilateral UEs and LEs, proximal and distal, symmetric. Sensory: sensation intact to light touch globally. Gait normal: patient ambulated without ataxia into ED room. PSYCH: euthymic, cooperative, pleasant, appropriate speech Course Vital Signs Vital signs: Vital Signs Pulse 56 L 01/24/24 10:34 Respiratory Rate 18 01/24/24 10:34 Blood Pressure 134/77 01/24/24 10:34 Pulse Oximetry 98 01/24/24 10:34 Pulse 56 L 01/24/24 10:34 Respiratory Rate 18 01/24/24 10:34 Blood Pressure 134/77 01/24/24 10:34 Pulse Oximetry 98 01/24/24 10:34 Medical Decision Making This dictation utilizes [id number] dictation software and may contain unedited grammatical errors. 63 y/o M presents to ED today with a chief complaint of possible ulcer-like pain, multiple episodes over the past couple weeks, worst 2 days ago lasting all night, and this morning around [id number] but resolved spontaneously by time of ED arrival. Patient had CABG x3 with sternotomy last year. Patient localizes his pain to the suprapubic area, denies nausea/vomiting, denies overt chest pain, denies dizziness/diaphoresis. Patient tried Maalox and TUMS at home without relief. Patients' medical history: Bipolar disorder, chest pain, history of CABG X3. Family and social history: noncontributory. Pertinent exam findings / vital signs include benign cardiopulmonary exam, suprapubic tenderness without peritoneal signs, neuro intact, nontoxic vitals. Differential / pathologies of concern include ACS, embolic pathology, UTI, renal colic, enteritis/colitis, pancreatitis. Diagnostic studies of: -CBC, BMP, lactate, lipase, liver panel, magnesium, CRP/ESR, BNP, troponin with delta troponin, D-dimer, urinalysis, EKG. CT ABD/Pelvis w Contrast -CBC unremarkable, mild hemoconcentration -BMP unremarkable, mild anion gap -Lipase mildly elevated -LFTs are up- elevated bili and direct bili, with mild elevation of ALT>AST -Initial trop negative, repeat also negative- no ACS -BNP wnl -Magnesium 2.5 -CRP/ESR unremarkable -D-dimer age adjusted negative -UA shows ketonuria, glucose spilling -EKG shows sinus rhythm at 53 bpm with P waves followed by narrow complex QRS with mild left axis deviation, good R wave progression, no ST changes, normal QT QTc -CT ABD/Pelvis w Contrast shows pericholecystic fluid, cholecystitis, and gallstone - correlates with lab work-up, consulting General Surgery Interventions of: -IV fluids, IV Tylenol, IV Toradol, IV Zofran, consult general surgery Dr. Buitrago. ED Course/Assessment/Plan: 63-year-old male presents with vague reports of subjective abdominal pain, he localized different areas to different tax staff accountant as well as myself at different points in his visit. He is a poor historian, he does have a cardiac history of CABG X3 last year but this does not appear to be chest pain he has no red flags for ACS and his symptoms. His laboratory workup shows some mild pancreatitis as well as some elevation of bilirubin and direct bilirubin and LFTs, I was suspicious with his reports of abdominal pain and his belief that he had some sort of ulcer with biliary tree pathology, the CT of his abdomen shows pericholecystic fluid with gallstone and likely cholecystitis which is correlated with his laboratory workup. General surgical consult from the ED, last oral intake between [address] Buitrago accepted patient for admission @ 1415. Findings not consistent with sepsis, cholangiitis. Disposition of Cholecystitis. Patient verbalized understanding of the plan and return to ED criteria and engaged in shared decision making. Medical Records Medical records reviewed: Yes I reviewed the patient's medical records. Imaging Data Radiologic Study: Attestation: I personally reviewed and interpreted this imaging study as follows: Imaging: CT Scan Radiologist's impression: Exam: CT Abdomen And Pelvis With Contrast Exam date and time: 01/24/2024 12:26 PM Age: 63 years old Clinical indication: Other: Abdominal pain, elevated bili \T\ lfts TECHNIQUE: Imaging protocol: Computed tomography of the abdomen and pelvis with contrast. Contrast material: OMNIPAQUE 350; Contrast volume: 100 ml; Contrast route: INTRAVENOUS (IV); COMPARISON: CR XR PORTABLE CHEST AP 05/16/2023 8:11 AM FINDINGS: Liver: Normal. No mass. Gallbladder and bile ducts: Gallbladder wall thickening with pericholecystic fluid. Tiny radiopaque gallstone evident. Likely cholecystitis, clinical correlation recommended. Common bile duct normal. Pancreas: Normal. No ductal dilation. Spleen: Normal. No splenomegaly. Adrenal glands: Normal. No mass. Kidneys and ureters: Normal. No hydronephrosis. Stomach and bowel: Unremarkable. No obstruction. No mucosal thickening. Appendix: No evidence of appendicitis. Intraperitoneal space: Unremarkable. No free air. No significant fluid collection. Vasculature: Unremarkable. No abdominal aortic aneurysm. Lymph nodes: Unremarkable. No enlarged lymph nodes. Urinary bladder: Unremarkable as visualized. Reproductive: Unremarkable as visualized. Bones/joints: Unremarkable. No acute fracture. Soft tissues: Unremarkable. IMPRESSION: Gallbladder wall thickening with pericholecystic fluid. Tiny radiopaque gallstone evident. Likely cholecystitis, clinical correlation recommended. Dictated and Authenticated by: Trnea Perez MD. Ordering:EMILY Valencia MD Lab Data Lab results reviewed: Yes I reviewed the patient's lab results. Quality:SDOH Health Related Social Needs: No Data to Display PFSH All Active Problems (Updated 01/24/24 @ 14:27 by CHARLES Sims) Cholecystitis (Acute) Bipolar 1 disorder (Acute) Nevus (Acute) Neoplasm of unspecified behavior of bone, soft tissue, and skin (Acute) Chest pain (Acute) DVT prophylaxis (Acute) Urine finding (Acute) Discharge planning issues (Acute) Major depression, recurrent (Acute) Suicide attempt (Acute) History of suicide attempt (Chronic) Medical History Bipolar disorder Depression Surgical History History of eye surgery Family History Mother Suicide Social History Smoking/Tobacco Use Status: Never Smoking risk assessment performed?: Yes Alcohol Intake: never Substance use type: does not use Housing: house Do you feel safe in your relationship?: Yes
[2024-01-24 11:11] LABS: Lactate 1.8 mmol/L (0.6-1.4)
[2024-01-24 11:16] LABS: Abs Immature Grans 0.01 10^3/uL (0.0-0.06); Absolute Basophil Count 0.04 10^3/uL (0.0-0.2); Absolute Eosinophil Count 0.06 10^3/uL (0.0-0.7); Absolute Lymphocyte Count 2.29 10^3/uL (1.2-3.4); Absolute Monocyte Count 0.44 10^3/uL (0.1-0.8); Absolute Neutrophil Count 4.66 10^3/uL (1.2-6.7); Basophils % 0.5; Eosinophils % 0.8; HCT 52.1 % (40.0-50.0); HGB 17.7 g/dL (13.5-17.5); Immature Grans % 0.1; Lymphocytes % 30.5; MCH 29.3 pg (27.0-33.0); MCV 86 fL (80-95); Monocytes % 5.9; Neutrophils % 62.2; Platelet Count 170 10^3/uL (130-400); RBC 6.04 10^6/uL (4.36-5.78); RDW 12.8 % (11.8-14.1); RDW-SD 39.9 fL
[2024-01-24 11:18] LABS: ESR 4 mm/hr (0-20)
--- NOTE | 2024-01-24 11:30 | DI.CT_ITS ---
Exam(s) CT ABDOMEN PELVIS W EXAM: CT ABDOMEN PELVIS W CLINICAL HISTORY: abdominal pain, elevated bili LFTs TECHNIQUE: Imaging Protocol: Axial computed tomography images with coronal and sagittal reformatted images were created and reviewed. CONTRAST MATERIAL: Intravenous: Omnipaque 350 Contrast volume:100 mL Oral: No COMPARISON: No exams were available for comparison FINDINGS: ABDOMEN: Lung Bases: Normal where visualized. Liver: Normal density. No measurable mass. Portal, Superior Mesenteric, and Splenic Veins: Unremarkable. Gallbladder and Biliary Tract: Cholelithiasis. There is mild enhancement of the wall of the gallblad ghazal and mild pericholecystic fluid. The findings are suspicious for acute cholecystitis. No biliary ductal dilatation. Pancreas: Normal density, no abnormal calcifications or inflammatory process. Spleen: Normal. Adrenals: No masses seen. Kidneys: Normal size, contour and axis. No radiodense stones or obstructive uropathy. No masses seen. Abdominal Aorta: Abdominal portion non-dilated. Atherosclerotic calcification is present. Bowel: No obstruction or bowel wall thickening. Appendix is unremarkable. The stomach is incompletely distended limiting evaluation. Peritoneal Cavity: No ascites, collection or mesenteric inflammatory response. No free air. Lymph Nodes: Within normal limits. Bones: Within normal limits for the patient's age. Sternal wires are in place. Soft Tissues: Unremarkable. PELVIS: Bladder: Symmetric distention, no gross wall thickening. Reproductive Organs: Unremarkable as visualized. Lymph Nodes: Within normal limits. Bones: Within normal limits for the patient's age. IMPRESSION: Findings consistent with acute cholecystitis. RADIATION DOSE DELIVERED: 786.22mGy.cm Total DLP DATA REPOSITORY: All CT scans at this facility are submitted to the National Radiology Data Registry (NRDR) Dose Index Registry (DIR) with the [employer] (ACR). RADIATION OPTIMIZATION: All CT scans at this facility use at least one of these dose optimization te chniques: automated exposure control; mA and/or kV adjustment per patient size (includes targeted exa ms where dose is matched to clinical indication); or iterative reconstruction.
[2024-01-24 11:38] LABS: ALT 100 U/L (16-63); AST 64 U/L (15-37); Albumin 4.5 g/dL (3.4-5.0); Alkaline Phosphatase 109 U/L (46-116); Anion Gap 12.7 mmol/L (3-11); BUN 18 mg/dL (7-18); Bilirubin, Direct 0.4 mg/dL (0.0-0.2); C-Reactive Protein < 0.50 mg/dL (<or=0.5); CO2 26.3 mmol/L (21.0-32.0); CREATININE 1.2 mg/dL (0.70-1.30); Calcium 10.1 mg/dL (8.5-10.1); Chloride 102 mmol/L (98-107); Glucose 210 mg/dL (74-106); Lipase 94 U/L (16-77); Magnesium 2.5 mg/dL (1.8-2.4); NT-proBNP 203 pg/mL (<300); Potassium 4.2 mmol/L (3.5-5.1); Sodium 141 mmol/L (136-145); Troponin I < 50 ng/L (< or =60)
[2024-01-24 11:46] LABS: D-Dimer 519 ng/mlFEU (<500)
[2024-01-24] MEDS: Normal Saline - Diluent 50 ML VIAL IV (12:20)
[2024-01-24] MEDS: Omnipaque 350 MG/ML 100 ML BTL IJ (12:20)
[2024-01-24] MEDS: Normal Saline Flush 10 ML SYR IVP ×4 (12:30→21:23)
[2024-01-24 12:33] LABS: Bilirubin Negative (Negative); Blood Negative (Negative); Clarity Clear (Clear); Glucose 500 mg/dL (Negative); Ketones 40 mg/dL (Negative); Leukocyte Esterase Negative (Negative); Nitrite Negative (Negative); Urobilinogen 0.2 mg/dL (Up to 0.2)
[2024-01-24] MEDS: Ondansetron 4 MG/2 ML VIAL IVP (13:23)
[2024-01-24] MEDS: Normal Saline 1,000 ML 1000 ML IV (13:23)
--- NOTE | 2024-01-24 13:27 | DI.VRAD_ITS ---
PROCEDURE INFORMATION: Exam: CT Abdomen And Pelvis With Contrast Exam date and time: 01/24/2024 12:26 PM Age: 63 years old Clinical indication: Other: Abdominal pain, elevated bili \T\ lfts TECHNIQUE: Imaging protocol: Computed tomography of the abdomen and pelvis with contrast. Contrast material: OMNIPAQUE 350; Contrast volume: 100 ml; Contrast route: INTRAVENOUS (IV); COMPARISON: CR XR PORTABLE CHEST AP 05/16/2023 8:11 AM FINDINGS: Liver: Normal. No mass. Gallbladder and bile ducts: Gallbladder wall thickening with pericholecystic fluid. Tiny radiopaque gallstone evident. Likely cholecystitis, clinical correlation recommended. Common bile duct normal. Pancreas: Normal. No ductal dilation. Spleen: Normal. No splenomegaly. Adrenal glands: Normal. No mass. Kidneys and ureters: Normal. No hydronephrosis. Stomach and bowel: Unremarkable. No obstruction. No mucosal thickening. Appendix: No evidence of appendicitis. Intraperitoneal space: Unremarkable. No free air. No significant fluid collection. Vasculature: Unremarkable. No abdominal aortic aneurysm. Lymph nodes: Unremarkable. No enlarged lymph nodes. Urinary bladder: Unremarkable as visualized. Reproductive: Unremarkable as visualized. Bones/joints: Unremarkable. No acute fracture. Soft tissues: Unremarkable. IMPRESSION: Gallbladder wall thickening with pericholecystic fluid. Tiny radiopaque gallstone evident. Likely cholecystitis, clinical correlation recommended. Dictated and Authenticated by: Trena Perez MD. Ordering:EMILY Valencia MD
[2024-01-24] MEDS: ACETAMINOPHEN 1,000 MG/100 ML BTL 400 MG IVPB ×2 (13:31→22:04)
[2024-01-24] MEDS: Ketorolac 15 MG/ML VIAL IVP (13:32)
[2024-01-24 14:22] LABS: Troponin I < 50 ng/L (< or =60)
[2024-01-24] MEDS: PIPERACILLIN/TAZO 3.375 GM in Normal Saline 50 ML IVPB ×2 (14:37→21:22)
--- NOTE | 2024-01-24 14:45 | HPE_ITS ---
Date of service: 01/24/24 Time of Service: 14:45 Assessment and Plan Assessment and plan (1) Bipolar 1 disorder: Status: Acute Assessment and plan: not on meds (2) Cholecystitis: Status: Acute Assessment and plan: plan surgery tentatively for Thursday provided he does not have choledocholithiasis Labs and MRCP in a.m. Zosyn -Most likely patient passed a gallstone earlier. He does have elevated lipase as well as bilirubin. Will check MRCP. The alternatives to surgery, risks, complications, and the possible need to convert to open cholecystectomy were discussed. Also bleeding, infection, pneumonia, blood clots, complications of anesthesia, damage to bowel, bladder, blood vessels, or bile ducts, liver, need for blood transfusions. Also: chronic pain, chronic diarrhea/post-joanne syndrome, reoccurrence of signs and symptoms, port site hernias, adhesions.? Patient has a high probability of requiring open surgery. -Is unclear if patient can sign his own surgical consent. We had a guardian bedside consents previously for minor procedure. I can find no contact information for guardian in the chart. I will have care management explore this further. (3) Type 2 diabetes mellitus not at goal: Status: Acute Assessment and plan: last A1c was ~10 pt on jardiance (4) HTN (hypertension): Status: Chronic (5) Elevated cholesterol: Status: Chronic (6) Gallstone pancreatitis: Status: Acute Assessment and plan: Elevated total bili and lipase. Will check MRCP in a.m. (7) Elevated transaminase level: Status: Acute (8) Elevated bilirubin: Status: Acute (9) History of NC (myocardial infarction): Status: Acute Assessment and plan: Patient had an NC in June 03. His immediate postop CALEB showed an EF of 55%. he has not followed up with cardiology since that time. He did complete cardiac rehab. Patient is talking about shortness of breath. But is unclear if this is current or if this was before the surgery Will check an echo for preop EKG in ED and trop were negative This document was created with voice activated software and may contain errors. 60 mins spent with the patient today. History of Present Illness Narrative: ED Notes 63 year-old male presents to ED today by POV/ambulating with a chief complaint of abdominal pain, one episode a couple weeks ago, then again this past Thursday lasting all night, and then starting again this morning around [id number], with no current pain in ED- points to his suprapubic area to localize the pain, and endorses some mid-back pain. Quality described as burning quality, aching, no radiation to dizziness, diaphoresis, syncope, denies sternal chest pain beyond what he usually has due to CABGx3 with sternotomy last year. Patient states he has some chronic SOB and was given an incentive spirometer to help his lung function. Severity is described as 9/10 at its worst, currently 0/10. Palliating factors include tried Maalox and TUMS at home as he felt he could be having ulcer-like pain. Provoking factors include nothing specific. Patient not anticoagulated. Consult: Patient came into the ER complaining of upper quadrant abdominal pain and nausea. Currently he has no pain. Patient is not a great historian. He is not sure what medications he is taking at home. He had a CABG in May 2023. He he says he had 3 valves replaced. Patient states he has not seen a securities compliance examiner or any other doctors since 2 weeks after his surgery. He had his surgery at [facility]. I will review their notes. Patient denies having a recent echo. He still gets short of breath with strenuous activity. Patient did finish cardiac rehab Patient has a very poor diet. He has a bag of Alvarez[employer] with him for dinner. Patient does not check his blood sugars at home. Currently he is not having any abdominal pain. He has not had any nausea. He has no fever. He is hungry and wants to eat. Patient has had eye surgery in the past. Because he could not see. It sounds like this may be due to diabetic retinopathy. He has also had foot surgery in the past. He does not know if he had any complications from anesthesia. Review of Systems Narrative: Patient is a very poor historian. Much of the information is taken from [facility] and [facility] charts All systems reviewed & are unremarkable except as noted in HPI and below PFSH All Active Problems (Updated 01/24/24 @ 22:11 by Shabana Buitrago DO) History of NC (myocardial infarction) (Acute) Elevated bilirubin (Acute) Elevated transaminase level (Acute) Gallstone pancreatitis (Acute) Elevated cholesterol (Chronic) HTN (hypertension) (Chronic) Type 2 diabetes mellitus not at goal (Acute) Cholecystitis (Acute) Bipolar 1 disorder (Acute) Nevus (Acute) Neoplasm of unspecified behavior of bone, soft tissue, and skin (Acute) DVT prophylaxis (Acute) Urine finding (Acute) Discharge planning issues (Acute) Major depression, recurrent (Acute) Suicide attempt (Acute) History of suicide attempt (Chronic) Medical History Bipolar disorder Depression Surgical History S/P CABG x 3 S/P cataract surgery Family History Mother Suicide Social History Smoking/Tobacco Use Status: Never Smoking risk assessment performed?: Yes Alcohol Intake: never Substance use type: does not use Housing: apartment Do you feel safe in your relationship?: Yes Meds Allergies and Home Medications Allergies Allergy/AdvReac Type Severity Reaction Status Date / Time No Known Allergies Allergy Unverified 01/24/24 11:05 Home Medications Medication Instructions Recorded Confirmed Type atorvastatin 20 mg tablet 20 mg PO QPM 05/16/23 01/24/24 History cholecalciferol (vitamin D3) 25 25 mcg PO BID 05/16/23 01/24/24 History mcg (1,000 unit) tablet lisinopril 10 mg tablet 10 mg PO DAILY 05/16/23 01/24/24 History sitagliptin phosphate 100 mg 100 mg PO QPM 05/16/23 01/24/24 History tablet (Januvia) aspirin 81 mg tablet,delayed 81 mg PO DAILY 01/24/24 01/24/24 History release (Adult Aspirin Regimen) empagliflozin 25 mg tablet 25 mg PO DAILY 01/24/24 01/24/24 History (Jardiance) ezetimibe 10 mg-rosuvastatin 40 mg 1 tab PO DAILY 01/24/24 01/24/24 History tablet glipizide 2.5 mg tablet 2.5 mg PO BID 01/24/24 01/24/24 History metoprolol tartrate 25 mg tablet 25 mg PO Q8H 01/24/24 01/24/24 History Exam Narrative Exam Narrative: PHYSICAL EXAM GENERAL APPEARANCE: Alert, healthy appearance, oriented, x 3,? in no acute distress HYDRATION: Well hydrated HEAD, EYES, EARS, NECK, THROAT: Head is normocephalic, pupils equal, round, reactive to light and accommodation, ocular movement intact, sclera clear and no jaundice. ?Dentition intact. LUNGS: normal respiration/normal chest excursion. ?Clear to auscultation bilaterally. ?No wheeze. ?HEART: Regular rate and rhythm. no murmurs. Postsurgical changes noted. The sternum is well-healed. EXTREMITY: No edema or cyanosis.? no leg pain, redness, swelling.? ABDOMEN: soft and non-tender to palpation.? Normal bowel sounds.? No hernias.? No abdominal scars. He has no pain in the right upper quadrant currently. He does point to the upper abdomen as to where the pain was when he was having pain. Results Labs 01/24/24 11:04 01/24/24 11:04 Labs: Laboratory Results - last 24 hr 01/24/24 01/24/24 01/24/24 11:04 12:23 13:55 WBC 7.50 RBC 6.04 H Hgb 17.7 H Hct 52.1 H MCV 86 MCH 29.3 MCHC 34.0 RDW 12.8 Plt Count 170 MPV 11.0 Immature Gran % 0.1 Neutrophils % 62.2 Lymphocytes % 30.5 Monocytes % 5.9 Eosinophils % 0.8 Basophils % 0.5 Nucleated RBC % 0.0 Absolute Neutrophils 4.66 Absolute Lymphocytes 2.29 Absolute Monocytes 0.44 Absolute Eosinophils 0.06 Absolute Basophils 0.04 ESR 4 D-Dimer 519 H VBG Lactate 1.8 H Sodium 141 Potassium 4.2 Chloride 102 Carbon Dioxide 26.3 Anion Gap 12.7 H BUN 18 Creatinine 1.2 Est GFR (CKD-EPI 2020) 68.80 Glucose 210 H Calcium 10.1 Magnesium 2.5 H Total Bilirubin 2.0 H Conjugated Bilirubin 0.4 H AST 64 H ALT 100 H Alkaline Phosphatase 109 Troponin I < 50 < 50 C-Reactive Protein < 0.50 NT-Pro-B Natriuret Pep 203 Total Protein 8.0 Albumin 4.5 Lipase 94 H Urine Color Yellow Urine Clarity Clear Urine pH 7.0 Ur Specific [place] 1.020 Urine Protein Negative Urine Ketones 40 H Urine Blood Negative Urine Nitrite Negative Urine Bilirubin Negative Urine Urobilinogen 0.2 Ur Leukocyte Esterase Negative Urine Glucose 500 H Last Vital Signs Pulse 56 L 01/24/24 10:47 Resp 18 01/24/24 10:53 BP 138/92 H 01/24/24 10:47 Pulse Ox 97 01/24/24 10:47 Time Spent Time spent with Patient: 55-74 minutes Time was spent: preparing to see the patient(eg.review tests), obtaining and/or reviewing [facility], ordering medications,tests, procedures, indepentently interpreting results, counseling the patient and care coordination
[2024-01-24] MEDS: Lactated Ringers 1,000 ML 75 ML IV (16:48)
[2024-01-24] MEDS: FAMOTIDINE 20 MG in Normal Saline 100 ML 400 MG IVPB (20:35)
[2024-01-25 00:01] VITALS: BP 108/58; PULSE 54; RESP 16; TEMP 36.2; O2SAT 96
[2024-01-25] MEDS: Normal Saline Flush 10 ML SYR IVP ×3 (01:42→20:52)
[2024-01-25] MEDS: PIPERACILLIN/TAZO 3.375 GM in Normal Saline 50 ML IVPB ×4 (01:42→22:17)
[2024-01-25 05:17] LABS: Abs Immature Grans 0.01 10^3/uL (0.0-0.06); Absolute Basophil Count 0.04 10^3/uL (0.0-0.2); Absolute Eosinophil Count 0.05 10^3/uL (0.0-0.7); Absolute Lymphocyte Count 2.04 10^3/uL (1.2-3.4); Absolute Monocyte Count 0.48 10^3/uL (0.1-0.8); Absolute Neutrophil Count 3.65 10^3/uL (1.2-6.7); Basophils % 0.6; Eosinophils % 0.8; HCT 41.8 % (40.0-50.0); HGB 14.2 g/dL (13.5-17.5); Immature Grans % 0.2; Lymphocytes % 32.5; MCH 29.5 pg (27.0-33.0); MCV 87 fL (80-95); MPV 10.9 fL (8.0-11.0); Monocytes % 7.7; Neutrophils % 58.2; Platelet Count 131 10^3/uL (130-400); RBC 4.81 10^6/uL (4.36-5.78); RDW-SD 40.9 fL; WBC 6.27 10^3/uL (4.4-10.8)
[2024-01-25 05:28] LABS: ALT 61 U/L (16-63); AST 25 U/L (15-37); Albumin 3.3 g/dL (3.4-5.0); Alkaline Phosphatase 79 U/L (46-116); Anion Gap 9.6 mmol/L (3-11); BUN 21 mg/dL (7-18); Bilirubin, Total 1.3 mg/dL (0.2-1.0); CO2 26.4 mmol/L (21.0-32.0); CREATININE 1.1 mg/dL (0.70-1.30); Calcium 8.3 mg/dL (8.5-10.1); Chloride 107 mmol/L (98-107); Estimated GFR 76.37 (mL/min/1.73m2); Glucose 122 mg/dL (74-106); Potassium 4.1 mmol/L (3.5-5.1); Sodium 143 mmol/L (136-145)
[2024-01-25 05:30] LABS: Troponin I < 50 ng/L (< or =60)
[2024-01-25 05:31] LABS: Lipase 90 U/L (16-77); Troponin I < 50 ng/L (< or =60)
[2024-01-25 05:33] LABS: C-Reactive Protein < 0.50 mg/dL (<or=0.5)
[2024-01-25 05:34] LABS: Hemoglobin A1C 8.7 % (<5.7)
[2024-01-25] MEDS: ACETAMINOPHEN 1,000 MG/100 ML BTL 400 MG IVPB ×3 (05:44→21:24)
--- NOTE | 2024-01-25 07:00 | DI.US_ITS ---
APPROVED REPORT EXAM: Comprehensive 2D, Doppler, and color-flow Echocardiogram Patient Location: In-Patient Room/Bed: 214 [address] Heating Installer: Trena Angel RDCS (AE) Indications: CABG(), DM, HTN,ELEVATED CHOL Other Information Study Quality: Adequate Conclusion Normal left ventricular wall thickness and chamber size. EF is 60%. Wall motion is normal Normal right ventricualr size and function Both atria are normal in size There is no structural or hemodynamically significant valvular disease Estimated irt ventricular systolic pressure is 28 mmHg Wall motion Left Ventricle The left ventricle is normal size. The left ventricular systolic function is normal. The left ventric ular ejection fraction is within the normal range. There is normal left ventricular wall thickness. T here is normal LV segmental wall motion. There is no ventricular septal defect visualized. LVEF is 60 %. Right Ventricle The right ventricle is normal size. The right ventricular systolic function is normal. Atria The left atrium size is normal. The right atrium size is normal. The interatrial septum is intact wit h no evidence for an atrial septal defect. Aortic Valve The aortic valve is normal in structure. There is no aortic valvular stenosis. No aortic regurgitatio n is present. Mitral Valve The mitral valve is normal in structure. No evidence of mitral valve stenosis. Trace mitral regurgit ation. Tricuspid Valve The tricuspid valve is normal in structure. There is no tricuspid valve stenosis. Trace tricuspid reg urgitation. The RVSP is 28.2mmHg. Pulmonic Valve The pulmonary valve is normal in structure. Doppler not captured in error. Great Vessels The aortic root is normal in size. The ascending aorta is normal in size. Aortic arch is not well vis ualized. IVC is normal in size and collapses >50% with inspiration. Pericardium There is no pericardial effusion. 2D Dimensions IVSD d PLAX 0.86 cm M: 0.6-1.2 Ao Root d 3.39 cm M: 3.1 - 3.7 LVPW d PLAX 0.86 cm M: 0.6 - 1.2 Ao Asc Diam d 3.36 cm M: 2.6 - 3.4 LVID d PLAX 4.83 cm M: 4.2 - 5.8 LVDs 3.27 cm M: 2.5 - 4.0 LV EF Teichholz 60.3 % FS 32.22 % LV EDV (Teich) 109.1 mL LV ESV (Teich) 43.3 mL M-Mode TAPSE 1.25 cm (M/F) >1.7 Auto EF LV EDV A4C 97.5 mL LV EDV A2C 103.1 mL LV EDV BP 100.2 mL LV ESV A4C 38.4 mL LV ESV A2C 41.7 mL LV ESV BP 39.7 mL LVEF(%) A4C 60.6 % LVEF(%) A2C 59.5 % LVEF(%) BP 60.4 % LV SV A4C 59.1 ml LV SV A2C 61.4 ml LV SV BP 60.5 ml LV CO A4C 2.8 L/min LV CO A2C 2.9 L/min LV CO BP 2.9 L/min HR A4C 48.07 BPM HR A2C 46.69 BPM LV EDV Index (BP) LA Volume LA Length A4C 5.2 cm LA Length A2C 5.4 cm LA Area A4C s 18.00 cm2 LA Area A2C s 18.28 cm2 LA Vol A4C A-L 52.71 mL LA Vol A2C A-L 52.53 mL LA Vol Biplane A-L 53.5 mL LA Vol/BSA A4C A-L LA Vol/BSA A2C A-L LA Vol/BSA BP A-L 28.6 mL/m2 LA Vol A4C MOD 45.7 mL LA Vol A2C MOD 50.4 mL LA Vol BP MOD 48.5 mL RA Volume RA Area A4C 12.4 cm2 RA ESV A4C (A-L) 27.8mL RA Vol/BSA A4C A-L RA Length A4C 4.7 cm RA ESV A4C (MOD) 27.9mL LV Diastology MV E' medial 0.059 (>0.07 m/s) MV E Vmax 0.99 (0.4-1.3 m/s) MV E/E' MED 16.58 (<14) MV A Vmax 0.45 (0.4-1.3 m/s) MV E' lateral 0.129 (>0.1 m/s) E/A Ratio 2.2 MV E/E' LAT 7.63 (<14) MV E' Average 0.094 m/s MV E/E'(average) 10.45 Aortic Valve AoV Vmax 1.14 m/s LVOT Vmax 0.94 m/s AoV Peak Grad 5.2 mmHg LVOT Peak Grad 3.5 mmHg AoV Area (Vmax) 2.37 cm2 LVOT VTI 0.250 m AoV VTI 0.310 m LVOT Mean Grad 1.7 mmHg AoV Mean Thor. 0.74 m/s LVOT SV 72.35 mL AoV Mean Grad 2.6 mmHg LVOT Diam s 1.90 cm AoV Area (VTI) 2.34 cm2 Velocity Ratio 0.82 Mitral Valve MV DT 187 (160-240 msec) MV Vmax TIPS 0.93 m/s MV Mean Grad 0.9 (<2mmHg) MV VTI 0.327 m Tricuspid Valve RA Pressure 3.00 mmHg TR Vmax 2.51 m/s TV S' 0.10 m/s TR Peak Grad 25.2 mmHg RVSP (TR) 28.2 mmHg
[2024-01-25 07:32] VITALS: BP 108/74; PULSE 58; RESP 14; TEMP 35.8; O2SAT 97
--- NOTE | 2024-01-25 08:00 | DI.MRI_ITS ---
Exam(s) MR ABDOMEN WO EXAM: MR ABDOMEN WO CLINICAL HISTORY: gallstone pancreatitis/poss CBD stone TECHNIQUE: Multiplanar multisequence MRI of the Abdomen was performed. COMPARISON: CT CT ABDOMEN PELVIS W from 01/24/2024 FINDINGS: Lung bases: Unremarkable. Liver: Unremarkable. Pancreas: Unremarkable. Gallbladder and Bile Ducts: There are gallstones present. No evidence of choledocholithiasis or bili lillian ductal dilatation. There is a small amount of pericholecystic fluid. Adrenals: Unremarkable. Kidneys: Unremarkable. Spleen: Unremarkable. Bowel: Unremarkable. Aorta: Unremarkable. Soft Tissues: Unremarkable. Bone: Unremarkable. Sternal wires are in place. Lymph Nodes: Unremarkable. IMPRESSION: 1. Cholelithiasis. No choledocholithiasis or biliary ductal dilatation. Small amount of pericholecy stic fluid. 2. Unremarkable pancreas. DATA REPOSITORY:
[2024-01-25] MEDS: Lactated Ringers 1,000 ML 75 ML IV (08:41)
[2024-01-25] MEDS: FAMOTIDINE 20 MG/50 ML BAG 200 MG IV ×2 (08:44→20:51)
--- NOTE | 2024-01-25 09:22 | INITIAL_ITS ---
Date of service: 01/25/24 Time of Service: 09:22 Care Management Initial Assmt Initial Assessment REASON FOR HOSPITALIZATION:: Cholecystitis PREVIOUS FUNCTIONAL STATUS/SOCIAL/FAMILY SUPPORTS:: Vignesh lives alone in [place] with his 2 cats. He has 2 adult children, 1 in [place] and the other in [place]. Vignesh is independent with his ADL's at baseline, he is disabled and does not drive. He can sign for himself, he does not have a guardian. His friend Priti Washburn is his primary support and provides his transportation and offers her help with anything he needs. CURRENT FUNCTIONAL STATUS:: Vignesh was sitting up in bed when CM met with him. He is awake, talkative and easily engages in conversation. Vignesh reports that he feels good and denies pain. His primary concern is that he wants to be home with his cats. He would prefer to discharge home tonight and come back tomorrow for the surgical procedure, if he can. In the meantime Priti is taking care of them. Pt goes to [facility] for counseling and group therapy and feels well supported in the community. Vignesh had an appointment with his Chronic Marketing Technologist and PCP tomorrow, appointment was cancelled due to his admission. ADVANCE DIRECTIVES:: None on file at [facility] Has patient been provided with info about the portal/API?: Yes Did the patient sign up for the portal?: No CODE STATUS:: Full Code INSURANCE COVERAGE / FINANCIAL ISSUES:: Medicaid Medicare CURRENT HOME/COMMUNITY SERVICES/EQUIPMENT:: [facility]- Counseling, group therapy Chronic Care Coordination/PCP Disability PRIMARY CARE PHYSICIAN:: Ayala Kauffman POTENTIAL DISCHARGE NEEDS:: Discharge plan, follow up with Chronic Marketing Technologist/PCP and community providers. PATIENT/FAMILY EDUCATION NEEDS:: Review discharge instructions, limitations, medications and plan to follow up with community providers. Discuss ask me three and goals of self care. ANTICIPATED BARRIERS TO DISCHARGE:: None identified TRANSPORTATION:: private vehicle with friend PLAN:: Vignesh is admitted for Cholecystitis, Surgical intervention is planned for tomorrow. Anticipate, pt will discharge home with New services, if needed when medically ready per Surgical provider. He will follow up with community providers and his discharge plan of care as instructed. CM will continue to support his admission and discharge needs. PFSH All Active Problems (Updated 01/24/24 @ 22:11 by Shabana Buitrago DO) History of [place] (myocardial infarction) (Acute) Elevated bilirubin (Acute) Elevated transaminase level (Acute) Gallstone pancreatitis (Acute) Elevated cholesterol (Chronic) HTN (hypertension) (Chronic) Type 2 diabetes mellitus not at goal (Acute) Cholecystitis (Acute) Bipolar 1 disorder (Acute) Nevus (Acute) Neoplasm of unspecified behavior of bone, soft tissue, and skin (Acute) DVT prophylaxis (Acute) Urine finding (Acute) Discharge planning issues (Acute) Major depression, recurrent (Acute) Suicide attempt (Acute) History of suicide attempt (Chronic) Medical History Bipolar disorder Depression Surgical History S/P CABG x 3 S/P cataract surgery Family History Mother Suicide Social History Smoking/Tobacco Use Status: Never Smoking risk assessment performed?: Yes Alcohol Intake: never Substance use type: does not use Housing: apartment Do you feel safe in your relationship?: Yes SDOH(Care Management) Screening Will the Patient Participate in the Screening?: Yes Do you worry about having a steady place to live?: no Problems where you live: no known problems In the past 12 months, have you had to go without electric, gas, oil or water in your home?: no Have you or anyone in your house had to go without enough food to eat?: no Has lack of transportation kept you from medical appointments or from doing things needed for daily living?: no Has anyone in your support network made you feel unsafe for any reason?: no
--- NOTE | 2024-01-25 12:52 | DM INPTCON_ITS ---
Date of service: 01/25/24 Time of Service: 12:40 Diabetes Inpatient Consult Reason for Visit: routine consult - diabetes education/mgt DESCRIPTION/ASSESSMENT: 63yo male admitted with cholecystitis, gallstone pancreatitis with history of bipolar 1 disorder, DMII, HTN, elevated cholesterol, and Hx of MO. A1C was 8.7% today. Pt has been NPO since since breakfast awaiting surgery tomorrow. Glucose has been good today - 112 at 8am check and 100 at noon. Meds at home include jardiance, januvia and glipizide with questionable consistency. Pt states he checks his glucose only when feeling symptomatic of hyper/hypoglycemia but could not give detailed examples of what synmtoms of either are. PT states he reads labels often but tends to focus just on sugars. We reviewed added sugars and total sugars and difference beween them. Reviewed handout on carb counting with guidance on trying to aim for ~12 carb choices per day in meal planning. Pt feels he gets mixed messages in the past from [facility] - provider told him not to eat ice cream so he switched to sugar free ice cream but states the RDN at [facility] told him that this ice cream was worse for him. I told him less than 40g added sugar should be goal and reviewed where this comes from. Asked pt about carb choices and his knowledge about sources and servings - did not relay a clear understanding. relates eating a bag of mini candy bars the other day States UBW is 175 pounds and fluctuates little on either end usually. Current BMI wnl - pt down about 3kg from his wt this time last year. INTERVENTION: Will monitor glucose patterns and follow up to check in with pt once taken food po again and provide further education. PT left with handout today to review carb and non-carb choices and serving sizes. He took my card as he has interest in getting together for further guidance via outpt nutrition education. PLAN: monitor labs, weight, and resumption of po for toleration. will educate on fat intake post cholecystectomy if needed. Time Spent in Nutritional Counseling and Treatment: 20 minutes
[2024-01-25 16:00] VITALS: BP 116/65; PULSE 48; RESP 16; TEMP 36.5; O2SAT 94
--- NOTE | 2024-01-25 16:34 | W.PM.PROGNOT ---
Date of Service Date of service: 01/25/24 Time of Service: 16:34 Assessment and Plan Assessment and plan (1) Bipolar 1 disorder: Status: Acute (2) HTN (hypertension): Status: Chronic (3) History of [place] (myocardial infarction): Status: Acute Assessment and plan: Echo with preserved ejection fraction and no valvular disease (4) Elevated cholesterol: Status: Chronic (5) Type 2 diabetes mellitus not at goal: Status: Acute Assessment and plan: A1c is 8.7 (6) Cholecystitis: Status: Acute Assessment and plan: Lap joanne possible open in a.m. ICG tonight Continue Zosyn . Informed consent was obtained, explaining risks and benefits of the procedure including but not limited to bleeding, infection, pneumonia, blood clots, possible damage to bowel, bladder, blood vessels, bile ducts, possible open procedure, complications of general anesthesia and other unforetold complications. (7) Gallstone pancreatitis: Status: Acute Assessment and plan: No choledocholithiasis on MRCP (8) Elevated bilirubin: Status: Acute (9) Elevated transaminase level: Status: Acute Assessment and plan: Improving Subjective Subjective Interval history since last seen: Pt is doing well. no headaches. No CP or SOB. no productive cough. no dysuria. no leg pain or swelling. Minimal abdominal pain Exam Narrative Exam Narrative: PHYSICAL EXAM GENERAL APPEARANCE: Alert, healthy appearance, oriented, x 3,? in no acute distress HYDRATION: Well hydrated HEAD, EYES, EARS, NECK, THROAT: Head is normocephalic, pupils equal, round, reactive to light and accommodation, ocular movement intact, sclera clear and no jaundice. ?Dentition fair LUNGS: normal respiration/normal chest excursion. ?Clear to auscultation bilaterally. ?No wheeze. ?HEART: Regular rate and rhythm. no murmurs post Sx changes noted. sternum well healed. EXTREMITY: No edema or cyanosis.? no leg pain, redness, swelling.? ABDOMEN: soft and non-tender to palpation.? Normal bowel sounds.? No hernias.? Objective Last Vital Signs Temp 36.5 C 01/25/24 16:00 Pulse 48 L 01/25/24 16:00 Resp 16 01/25/24 16:00 BP 116/65 01/25/24 16:00 Pulse Ox 94 01/25/24 16:00 Laboratory Results - last 24 hr 01/25/24 01/25/24 05:00 05:00 WBC 6.27 RBC 4.81 Hgb 14.2 D Hct 41.8 MCV 87 MCH 29.5 MCHC 34.0 RDW 13.0 Plt Count 131 MPV 10.9 Immature Gran % 0.2 Neutrophils % 58.2 Lymphocytes % 32.5 Monocytes % 7.7 Eosinophils % 0.8 Basophils % 0.6 Nucleated RBC % 0.0 Absolute Neutrophils 3.65 Absolute Lymphocytes 2.04 Absolute Monocytes 0.48 Absolute Eosinophils 0.05 Absolute Basophils 0.04 Sodium 143 Potassium 4.1 Chloride 107 Carbon Dioxide 26.4 Anion Gap 9.6 BUN 21 H Creatinine 1.1 Est GFR (CKD-EPI 2020) 76.37 Glucose 122 H Hemoglobin A1c 8.7 H Calcium 8.3 L Total Bilirubin 1.3 H AST 25 ALT 61 Alkaline Phosphatase 79 Troponin I < 50 < 50 C-Reactive Protein < 0.50 Total Protein 6.0 L Albumin 3.3 L Lipase 90 H Time Spent with Patient Time Spent with Patient: 35-49 minutes Time was spent: preparing to see the patient(eg.review tests), obtaining and/or reviewing separately otained hiistory, ordering medications,tests, procedures, referring, communicating with other health wild animal caretaker, indepentently interpreting results, counseling the patient and care coordination
[2024-01-26] VITALS (21 sets, daily range): BP systolic 101–142; BP diastolic 63–88; PULSE 45–90; RESP 16–24; TEMP 35.9–36.8; O2SAT 92–97; BMI 24.7
[2024-01-26] MEDS: MORPHine 2 MG/ML SYR IVP ×2 (02:25→18:09)
[2024-01-26] MEDS: PIPERACILLIN/TAZO 3.375 GM in Normal Saline 50 ML IVPB ×4 (02:26→22:16)
[2024-01-26] MEDS: Normal Saline Flush 10 ML SYR IVP ×6 (02:26→22:16)
[2024-01-26] MEDS: Lactated Ringers 1,000 ML 75 ML IV ×2 (04:57→15:29)
[2024-01-26] MEDS: Indocyanine green 25 MG VIAL 5 MG IVP (05:59)
[2024-01-26] MEDS: ACETAMINOPHEN 1,000 MG/100 ML BTL 400 MG IVPB ×2 (06:00→23:03)
[2024-01-26] MEDS: FAMOTIDINE 20 MG/50 ML BAG 200 MG IV ×2 (08:29→21:42)
--- NOTE | 2024-01-26 09:18 | PDOC.CMPRO ---
Date of service: 01/26/24 Time of Service: 09:18 Care Management Progress Note Progress Note Text Progress Note Text: S/O:Vignesh was asleep when CM went to meet with him. He is scheduled to go to the OR this afternoon for a laparoscopic cholecystectomy, so CM chose not to disturb him. Vignesh remains afebrile and his vital signs are stable. A:Vignesh is a 63 year old man admitted on 01/24/24 with cholecystitis P;Anticipate Vignesh will discharge home with no new services when medically stable. He will follow up with community providers and his discharge plan of care as instructed and transport with family. CM will continue to support his admission and discharge needs. SDOH(Care Management) Screening Will the Patient Participate in the Screening?: Yes Do you worry about having a steady place to live?: no Problems where you live: no known problems In the past 12 months, have you had to go without electric, gas, oil or water in your home?: no Have you or anyone in your house had to go without enough food to eat?: no Has lack of transportation kept you from medical appointments or from doing things needed for daily living?: no Has anyone in your support network made you feel unsafe for any reason?: no
--- NOTE | 2024-01-26 13:07 | W.ANESPRE ---
General Info Date of Service Date Performed: 01/26/24 Height: 5 ft 8 in Weight: 73.936 kg Body Mass Index (BMI): 24.7 Surgical Procedure: Operation Date: 01/26/24 14:25 Proposed Procedure Side Surgeon p Cholecystectomy Laparoscopic Shabana Buitrago DO Meds Allergies and Home Medications Allergies Allergy/AdvReac Type Severity Reaction Status Date / Time No Known Allergies Allergy Unverified 01/24/24 11:05 Home Medication Medication Instructions Recorded atorvastatin 20 mg tablet 20 mg PO QPM 05/16/23 cholecalciferol (vitamin D3) 25 25 mcg PO BID 05/16/23 mcg (1,000 unit) tablet lisinopril 10 mg tablet 10 mg PO DAILY 05/16/23 sitagliptin phosphate 100 mg 100 mg PO QPM 05/16/23 tablet (Januvia) aspirin 81 mg tablet,delayed 81 mg PO DAILY 01/24/24 release (Adult Aspirin Regimen) empagliflozin 25 mg tablet 25 mg PO DAILY 01/24/24 (Jardiance) ezetimibe 10 mg-rosuvastatin 40 mg 1 tab PO DAILY 01/24/24 tablet glipizide 2.5 mg tablet 2.5 mg PO BID 01/24/24 metoprolol tartrate 25 mg tablet 25 mg PO Q8H 01/24/24 Current Visit Medications: Current Medications Generic Name Dose Route Start Last Admin Trade Name Freq PRN Reason Stop Dose Admin Dextrose 0 gm 01/24/24 14:56 Glucose Oral Gel 15 Gm/37.5 Gm Tube PO DIRECTED PRN Dextrose/Water 0 gm 01/24/24 14:56 Dextrose 50%-Water 25 Gm/50 Ml Syr IVP DIRECTED PRN Docusate Sodium 100 mg 01/24/24 20:00 01/26/24 13:01 Docusate Sodium 100 Mg Cap PO Not Given TID SORAYA Ringer's Solution 1,000 mls @ 75 mls/hr 01/24/24 14:15 01/26/24 04:57 IV 75 mls/hr INFUSION SORAYA Administration Acetaminophen 1,000 mg in 100 mls @ 400 mls/hr 01/24/24 14:00 01/26/24 06:25 Ofirmev IVPB Infused Q8H SORAYA Infusion Piperacillin Sod/Tazobactam 50 mls @ 100 mls/hr 01/25/24 08:00 01/26/24 09:26 Sod 3.375 gm/ Sodium Chloride IVPB 100 mls/hr Q6H SORAYA Administration Famotidine 20 mg in 50 mls @ 200 mls/hr 01/25/24 08:00 01/26/24 08:45 Pepcid Premixed Bag IV Infused Q12H SORAYA Infusion IV Miscellaneous Supplies 1 each 01/24/24 14:15 Iv Access IV DIRECTED [facility] Indocyanine Green 5 mg 01/26/24 06:00 01/26/24 05:59 Indocyanine Green 25 Mg Vial IVP 01/26/24 16:00 5 mg TODAY@0600 SORAYA Administration Insulin Aspart 0 units 01/24/24 17:00 01/26/24 12:01 Insulin Aspart 300 Units/3 Ml Pen SC Not Given 0800,1200,1700 [facility] Protocol Metoprolol Tartrate 25 mg 01/24/24 16:00 01/26/24 08:13 Metoprolol 25 Mg Tab PO Not Given Q8H [facility] Morphine Sulfate 2 mg 01/24/24 14:10 01/26/24 02:25 Morphine 2 Mg/Ml Syr IVP 2 mg Q1H PRN PRN Administration Ondansetron HCl 4 mg 01/24/24 14:10 Ondansetron 4 Mg/2 Ml Vial IVP Q4H PRN PRN Sodium Chloride 0 ml 01/24/24 14:10 01/26/24 10:39 Normal Saline Flush 10 Ml Syr IVP 10 ml PRN PRN Administration Sodium Chloride 0 ml 01/24/24 20:00 01/26/24 09:19 Normal Saline Flush 10 Ml Syr IVP 10 ml BID SORAYA Administration Sodium Chloride 0 ml 01/24/24 14:10 Normal Saline 10 Ml Vial IJ DIRECTED PRN PFSH Active Problems Active Problems: Problem Status Onset Code History of [place] (myocardial infarction) I25.2 Elevated bilirubin R17 Elevated transaminase level R74.01 Gallstone pancreatitis K85.10 Elevated cholesterol E78.00 HTN (hypertension) I10 Type 2 diabetes mellitus not at goal E11.9 Cholecystitis K81.9 Bipolar 1 disorder F31.9 Nevus D22.9 Neoplasm of unspecified behavior of bone, soft tissue, and skin D49.2 DVT prophylaxis Urine finding R82.90 Discharge planning issues Z02.9 Major depression, recurrent F33.9 Suicide attempt T14.91XA History of suicide attempt Z91.5 Medical History Medical History Bipolar disorder Depression Surgical History Surgical History S/P CABG x 3 S/P cataract surgery Tobacco Smoking/Tobacco Use Status: Never Alcohol Alcohol Intake: never Substance Use Substance use type: does not use Vital Signs and Lab Results Vital Signs Most Recent Vital Signs in EMR: Most Recent Vital Signs Temp Pulse Resp BP Pulse Ox 35.9 C L 45 L 18 129/78 96 01/26/24 08:10 01/26/24 08:10 01/26/24 08:10 01/26/24 08:10 01/26/24 08:10 Point of Care Results Point of Care Results: Finger Stick Blood Glucose 104 01/26/24 13:00 Lab Results 01/25/24 05:00 01/25/24 05:00 Blood Type / Crossmatch: No Data to Display Complete Blood Count: White Blood Count 6.27 10^3/uL (4.4-10.8) 01/25/24 05:00 Red Blood Count 4.81 10^6/uL (4.36-5.78) 01/25/24 05:00 Hemoglobin 14.2 g/dL (13.5-17.5) 01/25/24 05:00 Hematocrit 41.8 % (40.0-50.0) 01/25/24 05:00 Platelet Count 131 10^3/uL (130-400) 01/25/24 05:00 Venous Blood Lactate 1.8 mmol/L (0.6-1.4) H 01/24/24 11:04 Complete Metabolic Panel: Sodium 143 mmol/L (136-145) 01/25/24 05:00 Potassium 4.1 mmol/L (3.5-5.1) 01/25/24 05:00 Chloride 107 mmol/L (98-107) 01/25/24 05:00 Carbon Dioxide 26.4 mmol/L (21.0-32.0) 01/25/24 05:00 BUN 21 mg/dL (7-18) H 01/25/24 05:00 Creatinine 1.1 mg/dL (0.70-1.30) 01/25/24 05:00 Est GFR (CKD-EPI 2020) 76.37 (mL/min/1.73m2) 01/25/24 05:00 Magnesium 2.5 mg/dL (1.8-2.4) H 01/24/24 11:04 Calcium 8.3 mg/dL (8.5-10.1) L 01/25/24 05:00 Albumin 3.3 g/dL (3.4-5.0) L 01/25/24 05:00 Glucose 122 mg/dL (74-106) H 01/25/24 05:00 Hemoglobin A1c 8.7 % (<5.7) H 01/25/24 05:00 C-Reactive Protein < 0.50 mg/dL (<or=0.5) 01/25/24 05:00 Liver Function Panel: Alanine Aminotransferase (ALT/SGPT) 61 U/L (16-63) 01/25/24 05:00 Aspartate Amino Transf (AST/SGOT) 25 U/L (15-37) 01/25/24 05:00 Coagulation Panel: D-Dimer 519 ng/mlFEU (<500) H 01/24/24 11:04 Cardiac Panel: Troponin I < 50 ng/L (< or =60) 01/25/24 NT-Pro-B Natriuret Pep 203 pg/mL (<300) 01/24/24 Arterial Blood Gas: No Data to Display Venous Blood Gas: No Data to Display Pancreas Panel: Lipase 90 U/L (16-77) H 01/25/24 05:00 Thyroid Panel: No Data to Display Infectious Disease: No Data to Display Blood Cultures: No Data to Display Toxicology Panel: No Data to Display Imaging and Studies Imaging and Studies Study information below may be from another EMR and interpreted by another provider. Please see original notes in EMR for more complete details. EKG Summary: 01/24/24 Conclusion Sinus bradycardia...rate< 60 Inferior infarct, old...Q >35mS, II III aVF Stress Test Summary: 02/24/23 Stress ECG Conclusion 1. The resting electrocardiogram was within normal limits 2. Patient exercised on the Jose protocol and completed a workload of 7 METS, limited by fatigue 3. Normal heart rate and blood pressure response to exercise. The patient achieved 88% of predicted heart rate for age 4. There was no electrocardiographic evidence of myocardial ischemia 5. There were rare PVCs [place] Treadmill Score is 4 which is Moderate risk. Echocardiogram Summary: 01/25/24 Conclusion Normal left ventricular wall thickness and chamber size. EF is 60%. Wall motion is normal Normal right ventricualr size and function Both atria are normal in size There is no structural or hemodynamically significant valvular disease Estimated irght ventricular systolic pressure is 28 mmHg Anesthesia Assessment and Plan Anesthesia History Personal History: No History of Anesthesia Complications Family History: No Family History of Anesthesia Complications Exercise Tolerance Exercise Tolerance: Metabolic Equivalents>4 Pertinent Negatives Pertinent Negatives: No Symptoms of GERD, No Major Cardiovascular Symptoms or Complaints, No Major Pulmonary Symptoms or Complaints and No History of CVA/TIA Cardiac & Pulmonary Exam Cardiac Exam: Normal S1/S2 Heart Sounds Pulmonary Exam: Clear Bilateral Breath Sounds Implantable Cardiac Device Does patient have a Pacemaker or an ICD?: No Airway Exam Known Difficult Airway: No Mallampati Class: 3 Mouth Opening: Normal (> 3cm) Thyromental Distance: Greater than 3 cm Facial Hair: Full [place] Range of Motion: Full ROM Neck Circumference: Normal Teeth Condition: Normal Dentition ASA Classification ASA Score: ASA 3 Emergency Case?: No NPO Status NPO Status: NPO Clears >2 hours, Solids >8 hours Anesthesia Plan Resuscitation Status: Full Code Anesthesia Technique: General Anesthesia Airway Planned: Endotracheal Tube Monitors Used: Standard Monitors and SedLine
--- NOTE | 2024-01-26 15:35 | GB_PTH ---
PATIENT: Vignesh Alaniz LOC: U#:[id number] AGE/SX: 63/M ROOM: 214 RE01/24/[address]: Shabana Buitrago : 1960 BED: A DIS: 01/27/2024 SPEC #: [id number] RECD: 01/26/24 16:41 STATUS: GERMAINE RETrish #: [id number] FIORDALIZA: 01/26/24 15:[address]: Shabaan Buitrago DEPT: Surgical Specimen RECD BY: Tala Garcia ENTERED: 01/26/24 16:41 SP TYPE: GB OTHR DR: Ros Ledezma,Kiara Knight, Mik Johnson,Ila Blair RN,Mica Kauffman,Sri Plaza,Gavi Shelton, Cande Anesthesia, Consult Tissues: 1 - GALLBLADDER Procedures: GROSS AND MICRO LEVEL 3 Comments: [id number]
--- NOTE | 2024-01-26 16:22 | W.PM.OP ---
Date of service: 01/26/24 Time of Service: 16:22 Operative Note Operative Note DATE OF PROCEDURE: 01/26/24 PRE-OP DIAGNOSIS: Acute cholecystitis/lithiasis POST-OP DIAGNOSIS: same PROCEDURE: Laparoscopic cholecystectomy SURGEON: Shabana Wong COMPONENT ASSEMBLER SUPERVISOR: Milvia Odonnell ANESTHESIA TYPE: Local By Surgeon and General LMA/ETT Refer to Anesthesia Record ESTIMATED BLOOD LOSS: 10 PATHOLOGY: other COMPLICATIONS: None Patient was transported to: PACU Patient's condition: stable Procedure Description: regarding acute cholecystitis, cholelithiasis. The pt has failed outpt conservative medical measures and is here today for laparoscopic cholecystectomy. Informed consent was obtained, explaining risks and benefits of the procedure including but not limited to bleeding, infection, pneumonia, blood clots, possible damage to bowel, bladder, blood vessels, bile ducts, possible open procedure, complications of general anesthesia and other unforetold complications. PROCEDURE: The patient agrees and is brought to the operative room suite and placed in supine position. Pt receives IV ICG preOp to aid w/ bile duct visualization.? Anesthesia was administered per the Department of Anesthesia. The patient did receive IV antibiotics. NG tube and Solano catheter are placed. The patient was prepped and draped in the usual sterile fashion using DuraPrep scrub solution. Pause for the cause was done. 20 mL of 1% buffered lidocaine was used for local anesthetization. A stab incision was made in the umbilicus and the Verres inserted. Drop test was positive and insufflation was begun. When 15 mm of pressure was noted on the monitor, the Veress was removed and #5 port inserted. The camera was inserted through the port and shows no damage to underlying structures. A 10 mm port was then placed in the epigastric position under direct visualization following creation of local field blocks as well as two 5 mm ports in the right upper quadrant. The camera was moved to one of the secondary ports so we could view the umbilical trocar site, and there is are no hernias or adhesions. The gallbladder fundus was grasped and retracted towards the right shoulder. Infundibulum was grasped and retracted laterally. The hepat-duodenal ligament is entered. The cystic duct and artery are dissected out and the most inferior portion of the gallbladder plate is removed from the liver and the critical view of safety was obtained after clearing away all fatty material. Endo Clips were placed across the duct and artery and these structures are divided. The remainder of the gallbladder was excised from the liver bed. The gallbladder was placed in a bag and brought out. Examination of the gallbladder shows indeed the cystic duct and artery to have been divided. The remainder of the abdomen was copiously irrigated with a liter of saline. All saline is removed. There is no bleeding or bile leakage from the liver bed or the clips sites. An EndoClose needle was used to close the 10 mm port site with an 0 Vicryl. All ports and instruments are removed. SPonge and needle counts are correct. Pneumoperitoneum is evacuated and the port sites are monitored to make sure there is no bleeding at the time of desufflation. ??Port sites are irrigated and the skin is closed with 4-0 Monocryl in a running subcuticular fashion. Skin glue sterile dressings are applied. The patient tolerated the procedure well without complications, transferred to the recovery room in stable condition. SHABANA WONG, DO
--- NOTE | 2024-01-26 16:24 | PGE_ITS ---
Date of Service Date of service: 01/26/24 Time of Service: 17:30 Assessment and Plan Assessment and plan (1) HTN (hypertension): Status: Chronic (2) History of [place] (myocardial infarction): Status: Acute (3) Elevated cholesterol: Status: Chronic (4) Type 2 diabetes mellitus not at goal: Status: Acute (5) Cholecystitis: Status: Acute (6) S/P laparoscopic cholecystectomy: Assessment and plan: Pt woke up confused and combative. Will moniter closely. Pt had same thing after CABG Their pain is well controlled. They are having no nausea or vomiting. The pt is not having any chest pain or SOB, productive cough; no calf pain or swelling. The pt is making good urine. The pt pain is adequately controlled. The case was discussed with nursing and patient?s progress reviewed. All of the pt's home medications were addressed and adjusted accordingly for their oral intact status. HEENT: no jaundice. no eye pain/drainage/redness/swelling. Mild sore throat Cardio- NSR no chest pain, BP stable. Pulm: no sob or productive cough. no hemoptysis Incision- clean/dry. Dressing intact no excessive bleeding or drainage Continue current plans for pulmonary toilet, GI and DVT prophylaxis. We shall continue the current plan for pain management as it is at an appropriate level, and working well for the pt. Appropriate measures will be taken for constipation prevention, and this was also reviewed with the pt. The wound care plan was reviewed with nursing as well. see orders Objective Last Vital Signs Temp 36.7 C 01/26/24 16:00 Pulse 81 01/26/24 16:05 Resp 22 01/26/24 16:05 BP 142/78 H 01/26/24 16:05 Pulse Ox 94 01/26/24 16:05 Laboratory Results - last 24 hr 01/24/24 11:04 Path Cons Comment Time Spent with Patient Time Spent with Patient: 25-34 minutes Time was spent: preparing to see the patient(eg.review tests), obtaining and/or reviewing separately otained hiistory, ordering medications,tests, procedures, referring, communicating with other health reservoir caretaker, indepentently interpreting results, counseling the patient and care coordination
--- NOTE | 2024-01-26 16:24 | W.BRIEF ---
Date of service: 01/26/24 Time of Service: 16:24 Brief Operative Note Procedure/Pre & Post Op Diagnoses/Program Production Specialist: Operation Date: 01/26/24 14:25 Actual Procedures p Cholecystectomy Laparoscopic - Shabana Buitrago DO Pre-Op Diagnosis: Cholecystitis Post-Op Diagnosis: Cholecystitis Case Staff Physician Program Production Specialist: Milvia Odonnell Anesthesia Anesthesia Type: Local By Surgeon and General LMA/ETT Estimated Blood Loss Output, Estimated Blood Loss 10 Amount Specimen/Culture Specimen(s): gallbladder Complications Complications: None
[2024-01-26] MEDS: LORazepam 2 MG/ML VIAL 0.5 MG IVP (16:30)
[2024-01-26] MEDS: fentaNYL 100 MCG/2 ML VIAL IVP (17:15)
--- NOTE | 2024-01-26 17:30 | W.ANESPOSTOP ---
Postoperative Evaluation Date, Time and Location Date Performed: 01/26/24 Time Performed: 17:26 Patient Location: PACU Vital Signs Most Recent Imported Vital Signs: Most Recent Vital Signs Temp Pulse Resp BP Pulse Ox 36.7 C 53 L 16 136/65 94 01/26/24 16:45 01/26/24 17:15 01/26/24 17:15 01/26/24 17:00 01/26/24 17:15 Pain Score Most Recent Pain Score: Most Recent Pain Score Pain Level [Lower Abdomen] 3 01/26/24 03:21 Pain Level [Right Toe] 4 01/25/24 01:37 Pain Level 7 01/26/24 17:15 Assessment Mental Status: Awake (Alert & Oriented to Patient Baseline) Airway and Respiratory Function: Patent airway with normal (patient baseline) respiratory exam Cardiovascular Function: Hemodynamically Stable Hydration Status: Adequately Hydrated Nausea & Vomiting: No Nausea or Vomiting Pain: Pain is tolerable per patient Peripheral Nerve Block: Patient did not receive a nerve block
[2024-01-26] MEDS: Metoprolol 25 MG TAB PO (18:00)
[2024-01-26] MEDS: Insulin Aspart 300 UNITS/3 ML PEN SC (18:09)
--- NOTE | 2024-01-26 22:28 | DSE_ITS ---
DS: Diagnosis Discharge Diagnosis (1) HTN (hypertension): Status: Chronic (2) History of [place] (myocardial infarction): Status: Acute (3) Elevated cholesterol: Status: Chronic (4) Type 2 diabetes mellitus not at goal: Status: Acute (5) Cholecystitis: Status: Acute (6) S/P laparoscopic cholecystectomy: Discharge Plan Disposition Patient Disposition: Home Condition: Good Discharge Details Reason For Visit: Acute Kathy w/ Gallstones Admit Date/Time: 01/24/24 14:10 Admit Provider: Shabana Buitrago Attending Provider: Shabana Buitrago Primary Care Provider: Ayala Kauffman Home Meds and New Rx's Prescriptions: New tramadol 50 mg tablet 50 mg PO Q6H PRNQty: 14 0RF Continued metoprolol tartrate 25 mg tablet 25 mg PO Q8H ezetimibe-rosuvastatin 10-40 mg tablet 1 tab PO DAILY aspirin [Adult Aspirin Regimen] 81 mg tablet,delayed release (DR/EC) 81 mg PO DAILY Jardiance 25 mg tablet 25 mg PO DAILY glipizide 2.5 mg tablet 2.5 mg PO BID lisinopril 10 mg Tablet 10 mg PO DAILY Januvia 100 mg Tablet 100 mg PO QPM atorvastatin 20 mg Tablet 20 mg PO QPM cholecalciferol (vitamin D3) 25 mcg (1,000 unit) Tablet 25 mcg PO BID Discharge Instructions Additional Instructions: Care after Gallbladder Surgery -Pain control: ?For the first 72 hours after surgery, take your pain meds continuously, and not just when you have pain.?? Alternate Tylenol 1000mg by mouth every 8 hours, and Ibuprofen 600mg every 6 hours.? Make sure you take ibuprofen with food and not on an empty stomach.? ??Use the tramadol for breakthrough pain- pain that is greater than a 7. ?- Use ICE! Ice really helps to keep the swelling down, and swelling causes pain. ??Twenty minutes on, and then off, continuously for the first 72hours.? After the first 72hrs, you can just use the Tylenol, ibuprofen or Celebrex, and ice, when you have pain.?? If you are taking narcotic pain medication, follow the instructions on the label and do not drive. Pain medications can make you very constipated. Make sure you are moving your bowels daily. If not, take Miralax. - Anesthesia makes you very constipated.? Take a dose of Miralax the morning after surgery. ? Use an ice bag for the first 72 hours. This helps to decrease swelling, which causes pain. It is normal to be more sore/painful and swollen towards the end of the day and first thing in the morning. ? G ? Use Miralax or prune juice to prevent constipation (this is a particular side effect of pain medication and anesthesia). Do not allow yourself to become constipated. ? Avoid fatty or greasy foods; introduce these slowly, with care, after about 1 month. High-fat foods include: ? Foods that are fried, like Italian fries and potato chips ? High-fat meats, such as damian, bologna, sausage, ground beef, and ribs, pork products ? High-fat dairy products, such as cheese, ice cream, cream, whole milk, and sour cream ? Pizza ? Foods made with lard or butter ? Creamy soups or sauces ? Meat gravies ? Chocolate ? Oils, such as palm and coconut oil ? Skin of chicken or turkey ? Nuts and nut butters ? Avocadoes ? Start out eating very small, bland amounts of food. Do not take pain pills on an empty stomach. - You will notice purple discoloration around the incisions.? This is the ?skin glue?.? This will wear off on its own.? It is OK to shower after 24hrs.? You do not need to cover the incisions. -You should walk frequently, gradually, increasing the distance. You may climb stairs, just go slowly. ? Do not go swimming or sit in a hot tub for two weeks. ? There are no stitches to remove. ? Do not drive your car x72hrs and then only if you have no pain and can move freely. Do not drive if you are taking pain narcotic pain medications. ? You may resume sexual activity whenever pain and soreness subside, usually in 2 weeks. ? Do no lift anything over 5 lbs. for two weeks. ? You may return to work in one week, or when you feel able, provided you do not have to do any heavy lifting or prolonged standing. ? You should return to Dr. Buitrago?s office for a post-op appointment about two weeks after surgery. A follow-up should have been scheduled for you already.? If there is not, please call the [facility] at: [phone] to schedule an appointment. My Medications for pain are: Tylenol/ibuprofen ?and ultram- for severe pain ? When to Call the Office: ? If the incision becomes red or swollen, or there is more than a little drainage from it. ? If you develop a temperature higher than 100.5 F. ? If your eyes turn yellow ? Vomiting and can?t keep fluids down Activity:: see above Equipment/Supplies:: No Equipment Needed Diet:: Carb Counting DS: Summary Quality:SDOH Health Related Social Needs: No Data to Display DS: Data Vitals/I&O Vitals and I&O: Vital Signs Temperature 36.4 C L 01/26/24 19:43 Temperature Source Tympanic 01/26/24 19:43 Pulse 56 L 01/26/24 19:43 Pulse Rhythm Regular 01/26/24 17:45 Pulse 48 L 01/24/24 15:31 Respiratory Rate 16 01/26/24 19:43 Respiratory Effort Normal, Non-Labored 01/26/24 17:45 Respiratory Depth Normal 01/26/24 17:45 Respiratory Pattern Normal 01/26/24 17:45 Blood Pressure 128/79 01/26/24 19:43 Blood Pressure Mean 83 01/24/24 15:31 Pulse Oximetry 96 01/26/24 19:43 Oxygen Delivery Method Room Air 01/26/24 19:43 Oxygen Flow Rate 0 01/26/24 19:43 Pain Level 4 01/26/24 18:45 Intake & Output 01/25/24 01/26/24 01/26/24 23:59 11:59 23:59 Intake Total 1350 / 2600 260 / 1398.75 1138.75 / 1398.75 Output Total 1125 / 1125 250 / 860 610 / 860 Balance 225 / 1475 10 538.75 528.75 / 538.75 Weight 73.936 kg Intake: IV 1350 / 2600 260 / 1398.75 1138.75 / 1398.75 Output: Urine 1125 / 1125 250 / 850 600 / 850 Estimated Blood Loss 10 / 10 Other: Urine Color Yellow Yellow Yellow Urine Appearance Clear Clear Clear Urine Odor None Normal Comment pt flushed toilet by himself. Stool Size Moderate Stool Characteristics Soft Emesis Description None Voiding Methods Urinal Toilet Urinal Data Completed and Pending Labs on day of discharge: Labs from last 24 hours 01/24/24 11:04 Path Cons Comment PFSH All Active Problems (Updated 01/26/24 @ 22:21 by Shabana Buitrago DO) History of [place] (myocardial infarction) (Acute) Elevated cholesterol (Chronic) HTN (hypertension) (Chronic) Type 2 diabetes mellitus not at goal (Acute) Cholecystitis (Acute) Bipolar 1 disorder (Acute) Nevus (Acute) Neoplasm of unspecified behavior of bone, soft tissue, and skin (Acute) DVT prophylaxis (Acute) Urine finding (Acute) Discharge planning issues (Acute) Major depression, recurrent (Acute) Suicide attempt (Acute) History of suicide attempt (Chronic) Medical History (Updated 01/26/24 @ 22:21 by Shabana Buitrago DO) Gallstone pancreatitis Bipolar disorder Depression Surgical History (Updated 01/26/24 @ 22:21 by Shabana Buitrago DO) S/P laparoscopic cholecystectomy S/P CABG x 3 S/P cataract surgery Family History Mother Suicide Social History Smoking/Tobacco Use Status: Never Smoking risk assessment performed?: Yes Alcohol Intake: never Substance use type: does not use Housing: apartment Do you feel safe in your relationship?: Yes
[2024-01-26] MEDS: Ketorolac 15 MG/ML VIAL IVP (23:03)
[2024-01-27] MEDS: PIPERACILLIN/TAZO 3.375 GM in Normal Saline 50 ML IVPB ×2 (02:29→08:45)
[2024-01-27] MEDS: Normal Saline Flush 10 ML SYR IVP ×2 (02:29→08:09)
[2024-01-27] MEDS: Lactated Ringers 1,000 ML 75 ML IV (03:37)
[2024-01-27] MEDS: Ketorolac 15 MG/ML VIAL IVP ×2 (03:57→10:13)
[2024-01-27] MEDS: ACETAMINOPHEN 1,000 MG/100 ML BTL 400 MG IVPB (06:12)
--- NOTE | 2024-01-27 07:42 | W.PM.PROGNOT ---
Date of Service Date of service: 01/27/24 Time of Service: 07:43 Assessment and Plan Assessment and plan (1) HTN (hypertension): Status: Chronic (2) History of [place] (myocardial infarction): Status: Acute (3) Elevated cholesterol: Status: Chronic (4) Type 2 diabetes mellitus not at goal: Status: Acute (5) Cholecystitis: Status: Acute (6) S/P laparoscopic cholecystectomy: Assessment and plan: POD #1 s/p laparoscopic Cholecystectomy Pain is currently well controlled Advancing diet as tolerated to low fat regular diet Encouraged activity OOB, ambulation and sitting in the chair Anticipate d/c home later today Subjective Subjective Interval history since last seen: Arrived with the patient resting comfortably. He states he is feeling much better and is eager to go home. Exam Const General: cooperative, healthy appearing and comfortable Orientation: alert and oriented x3 Resp Effort & Inspection: normal respiratory effort, no audible wheezes and no cough GI Inspection: normal to inspection and incision (Skin a fix in place) Palpation: soft, no guarding and tender Objective Last Vital Signs Temp 36.4 C L 01/26/24 22:45 Pulse 51 L 01/26/24 22:45 Resp 16 01/26/24 22:45 BP 110/63 01/26/24 22:45 Pulse Ox 93 01/26/24 22:45 Laboratory Results - last 24 hr 01/24/24 11:04 Path Cons Comment Time Spent with Patient Time Spent with Patient: <25 minutes Time was spent: preparing to see the patient(eg.review tests), obtaining and/or reviewing separately otained hiistory and counseling the patient
[2024-01-27 08:00] VITALS: O2SAT 95
[2024-01-27] MEDS: Milk of Magnesia 30 ML CUP PO (08:02)
[2024-01-27] MEDS: FAMOTIDINE 20 MG/50 ML BAG 200 MG IV (08:03)
[2024-01-27] MEDS: Docusate Sodium 100 MG CAP PO (08:03)
[2024-01-27] MEDS: Metoprolol 25 MG TAB PO (08:06)
[2024-01-27] MEDS: Insulin Aspart 300 UNITS/3 ML PEN SC (08:08)
[2024-01-27 08:29] VITALS: BP 117/80; PULSE 90; RESP 16; TEMP 36.3; O2SAT 95
--- NOTE | 2024-01-27 09:39 | PDOC.CMDIS ---
Date of service: 01/27/24 Time of Service: 09:39 LACE Index Scoring Tool Questions: Length of Stay (in days): 3 Was the patient admitted via the E.D.?: Yes Comorbidities: Previous M.I., Diabetes w/o Complication and Any Tumor E.D. 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 He will follow up with community providers and his discharge plan of care as instructed and transport with family. Patient/Family Education Needs: Review discharge instructions, limitations, medications and plan to follow up with community providers. Discuss ask me three and goals of self care. SDOH Health Related Social Needs: No Data to Display
--- NOTE | 2024-01-27 09:42 | DSE_ITS ---
Date of service: 01/27/24 Time of Service: 09:42 DS: Diagnosis Discharge Diagnosis (1) HTN (hypertension): Status: Chronic (2) History of [place] (myocardial infarction): Status: Acute (3) Elevated cholesterol: Status: Chronic (4) Type 2 diabetes mellitus not at goal: Status: Acute (5) Cholecystitis: Status: Acute (6) S/P laparoscopic cholecystectomy: Discharge Plan Disposition Patient Disposition: Home Condition: Good Discharge Details Reason For Visit: Acute Kathy w/ Gallstones Admit Date/Time: 01/24/24 14:10 Admit Provider: Shabana Buitrago Attending Provider: Shabana Buitrago Primary Care Provider: Ayala Kauffman Hospital Course Hospital Course: 63 y/o male presented to the ER with complaints of abdominal pain. CT scan performed in the ER demonstrated acute cholecystitis. Patient was admitted over night and started on antibiotics. He under went laparosocpic Cholecystectomy with Dr. Buitrago, which he tolerated very well. Post-op his pain was well controlled and he was tolerating a regular, low fat diet. Pain had significantly improved and was well managed. D/C home Will need 2 week follow up with Dr. Buitrago Home Meds and New Rx's Prescriptions: New tramadol 50 mg tablet 50 mg PO Q6H PRNQty: 14 0RF Continued metoprolol tartrate 25 mg tablet 25 mg PO Q8H ezetimibe-rosuvastatin 10-40 mg tablet 1 tab PO DAILY aspirin [Adult Aspirin Regimen] 81 mg tablet,delayed release (DR/EC) 81 mg PO DAILY Jardiance 25 mg tablet 25 mg PO DAILY glipizide 2.5 mg tablet 2.5 mg PO BID lisinopril 10 mg Tablet 10 mg PO DAILY Januvia 100 mg Tablet 100 mg PO QPM atorvastatin 20 mg Tablet 20 mg PO QPM cholecalciferol (vitamin D3) 25 mcg (1,000 unit) Tablet 25 mcg PO BID Discharge Instructions Additional Instructions: Care after Gallbladder Surgery -Pain control: ?For the first 72 hours after surgery, take your pain meds continuously, and not just when you have pain.?? Alternate Tylenol 1000mg by mouth every 8 hours, and Ibuprofen 600mg every 6 hours.? Make sure you take ibuprofen with food and not on an empty stomach.? ??Use the tramadol for breakthrough pain- pain that is greater than a 7. ?- Use ICE! Ice really helps to keep the swelling down, and swelling causes pain. ??Twenty minutes on, and then off, continuously for the first 72hours.? After the first 72hrs, you can just use the Tylenol, ibuprofen or Celebrex, and ice, when you have pain.?? If you are taking narcotic pain medication, follow the instructions on the label and do not drive. Pain medications can make you very constipated. Make sure you are moving your bowels daily. If not, take Miralax. - Anesthesia makes you very constipated.? Take a dose of Miralax the morning after surgery. ? Use an ice bag for the first 72 hours. This helps to decrease swelling, which causes pain. It is normal to be more sore/painful and swollen towards the end of the day and first thing in the morning. ? G ? Use Miralax or prune juice to prevent constipation (this is a particular side effect of pain medication and anesthesia). Do not allow yourself to become constipated. ? Avoid fatty or greasy foods; introduce these slowly, with care, after about 1 month. High-fat foods include: ? Foods that are fried, like [place] fries and potato chips ? High-fat meats, such as damian, bologna, sausage, ground beef, and ribs, pork products ? High-fat dairy products, such as cheese, ice cream, cream, whole milk, and sour cream ? Pizza ? Foods made with lard or butter ? Creamy soups or sauces ? Meat gravies ? Chocolate ? Oils, such as palm and coconut oil ? Skin of chicken or turkey ? Nuts and nut butters ? Avocadoes ? Start out eating very small, bland amounts of food. Do not take pain pills on an empty stomach. - You will notice purple discoloration around the incisions.? This is the ?skin glue?.? This will wear off on its own.? It is OK to shower after 24hrs.? You do not need to cover the incisions. -You should walk frequently, gradually, increasing the distance. You may climb stairs, just go slowly. ? Do not go swimming or sit in a hot tub for two weeks. ? There are no stitches to remove. ? Do not drive your car x72hrs and then only if you have no pain and can move freely. Do not drive if you are taking pain narcotic pain medications. ? You may resume sexual activity whenever pain and soreness subside, usually in 2 weeks. ? Do no lift anything over 5 lbs. for two weeks. ? You may return to work in one week, or when you feel able, provided you do not have to do any heavy lifting or prolonged standing. ? You should return to Dr. Buitrago?s office for a post-op appointment about two weeks after surgery. A follow-up should have been scheduled for you already.? If there is not, please call the [facility] at: [phone] to schedule an appointment. My Medications for pain are: Tylenol/ibuprofen ?and ultram- for severe pain ? When to Call the Office: ? If the incision becomes red or swollen, or there is more than a little drainage from it. ? If you develop a temperature higher than 100.5 F. ? If your eyes turn yellow ? Vomiting and can?t keep fluids down Activity:: see above Equipment/Supplies:: No Equipment Needed Diet:: Carb Counting Discharge Orders Discharge Orders: Discharge Order (Routine); Ordered 01/27/24 Ordered By: Milvia Odonnell DS: Summary Time Spent with Patient providing and/or coordinating discharge services: Less than 30 minutes Status at Discharge Functional status at discharge: independent ambulation Overall status at discharge: patient is back to baseline Mental Status: mental status grossly normal Speech and Movement: speech and movement normal Mood: congruent mood Affect: normal affect Quality:SDOH Health Related Social Needs: No Data to Display Exam Const General: cooperative, healthy appearing and comfortable Orientation: alert and oriented x3 Resp Effort & Inspection: normal respiratory effort, no audible wheezes and no cough GI Inspection: normal to inspection and incision (Skin a fix in place) Palpation: soft, no guarding and tender Psych Mental Status: mental status grossly normal Speech and Movement: speech and movement normal Mood: congruent mood Affect: normal affect DS: Data Vitals/I&O Vitals and I&O: Vital Signs Temperature 36.3 C L 01/27/24 08:29 Temperature Source Tympanic 01/27/24 08:29 Pulse 90 01/27/24 08:29 Pulse Rhythm Regular 01/26/24 20:15 Pulse 48 L 01/24/24 15:31 Respiratory Rate 16 01/27/24 08:29 Respiratory Effort Normal, Non-Labored 01/26/24 20:15 Respiratory Depth Normal 01/26/24 20:15 Respiratory Pattern Normal 01/26/24 20:15 Blood Pressure 117/80 01/27/24 08:29 Blood Pressure Mean 83 01/24/24 15:31 Pulse Oximetry 95 01/27/24 08:29 Oxygen Delivery Method Room Air 01/27/24 08:29 Oxygen Flow Rate 0 01/27/24 08:29 Pain Level 0 01/27/24 08:29 Intake & Output 01/26/24 01/27/24 01/27/24 18:59 06:59 18:59 Intake Total 1248.75 / 2198.75 950 / 2198.75 Output Total 260 / 1235 975 / 1235 200 / 200 Balance 988.75 / 963.75 -25 / 963.75 -200 / -200 Weight 73.936 kg Intake: IV 1248.75 / 2198.75 950 / 2198.75 Output: Urine 250 / 1225 975 / 1225 200 / 200 Estimated Blood Loss Other: Urine Color Yellow Pale Yellow Yellow Urine Appearance Clear Clear Clear Urine Odor None Normal Comment pt flushed toilet by himself. Stool Size Moderate Stool Characteristics Soft Emesis Description None Voiding Methods Urinal Urinal Urinal Data Completed and Pending Labs on day of discharge: Labs from last 24 hours 01/24/24 11:04 Path Cons Comment PFSH All Active Problems (Updated 01/26/24 @ 22:21 by Shabana Buitrago DO) History of [place] (myocardial infarction) (Acute) Elevated cholesterol (Chronic) HTN (hypertension) (Chronic) Type 2 diabetes mellitus not at goal (Acute) Cholecystitis (Acute) Bipolar 1 disorder (Acute) Nevus (Acute) Neoplasm of unspecified behavior of bone, soft tissue, and skin (Acute) DVT prophylaxis (Acute) Urine finding (Acute) Discharge planning issues (Acute) Major depression, recurrent (Acute) Suicide attempt (Acute) History of suicide attempt (Chronic) Medical History (Updated 01/26/24 @ 22:21 by Shabana Buitrago DO) Gallstone pancreatitis Bipolar disorder Depression Surgical History (Updated 01/26/24 @ 22:21 by Shabana Buitrago DO) S/P laparoscopic cholecystectomy S/P CABG x 3 S/P cataract surgery Family History Mother Suicide Social History Smoking/Tobacco Use Status: Never Smoking risk assessment performed?: Yes Alcohol Intake: never Substance use type: does not use Housing: apartment Do you feel safe in your relationship?: Yes Time Spent with Patient Time Spent with Patient: <45 minutes Time was spent: preparing to see the patient(eg.review tests), obtaining and/or reviewing separately otained hiistory and counseling the patient
== END 2024-01-27 12:34 | disposition home or self-care (01) | DRG 417 ==
LOC: ER 14:27 → MS 15:46
PROVIDERS: Admitting Provider Surgery; Emergency Provider Physician Assistant; PCP Nurse Practitioner Family; Visit Provider Surgery
PROC: 0FT44ZZ Resection of Gallbladder, Percutaneous Endoscopic Approach (ICD-10-PCS; CPT 47562; principal; 2024-01-26 14:15)
DX: K80.12 Calculus of gallbladder with acute and chronic cholecystitis without obstruction (principal); K85.10 Biliary acute pancreatitis without necrosis or infection; F33.9 Major depressive disorder, recurrent, unspecified; I25.2 Old myocardial infarction; R74.01 Elevation of levels of liver transaminase levels; E78.00 Pure hypercholesterolemia, unspecified; I10 Essential (primary) hypertension; E11.9 Type 2 diabetes mellitus without complications; Z79.4 Long term (current) use of insulin; Z91.51 Personal history of suicidal behavior; E80.6 Other disorders of bilirubin metabolism; Z95.1 Presence of aortocoronary bypass graft; Z79.84 Long term (current) use of oral hypoglycemic drugs
CPT/HCPCS: 47562; 00123; 36415; 80048; 80053; 80076; 83690; 85652; 93005; 93306; 96361; 96374; 96375; 99222; 99232; 99285; 74177; 74181; 81003; 83036; 83605; 83735; 83880; 84484; 85025; 85379; 86140; 88304; 93010; J0131; J1100; J1805; J1815; J1885; J1920; J2060; J2270; J2405; J2543; J2704; J3010; J3490

== ENCOUNTER → 2024-02-11 12:42 | Outpatient (BNVA) | payer MEDICARE, MEDICAID, SELFPAY | PROVIDERS: PCP Nurse Practitioner Family; Referring Provider Nurse Practitioner Family; Visit Provider Surgery | DX: Z48.815 Encounter for surgical aftercare following surgery on the digestive system (principal); Z90.49 Acquired absence of other specified parts of digestive tract ==

== ENCOUNTER 2024-05-13 08:24 | Emergency (ER) | payer MEDICARE, MEDICAID, SELFPAY ==
[2024-05-13 08:30] VITALS: BP 138/104; PULSE 83; RESP 20; TEMP 36.7; O2SAT 96
--- NOTE | 2024-05-13 08:55 | ED.GENADUL_ITS ---
Discharge Plan Disposition Patient Disposition: Home Condition: Improving Discharge Details Chief Complaint: EarProblem Clinical Impression: Cerumen impaction Primary Care Provider: Ayala Hameed ED Provider: Clark Mcgowan Home Meds and New Rx's Prescriptions: No Action metoprolol tartrate 25 mg tablet 25 mg PO Q8H aspirin [Adult Aspirin Regimen] 81 mg tablet,delayed release (DR/EC) 81 mg PO DAILY Jardiance 25 mg tablet 25 mg PO DAILY glipizide 2.5 mg tablet 2.5 mg PO BID rosuvastatin 40 mg tablet 40 mg PO DAILY Patient Comments: TAKE ONE TABLET BY MOUTH EVERY EVENING ezetimibe 10 mg tablet 10 mg PO DAILY Patient Comments: TAKE ONE TABLET BY MOUTH EVERY DAY Januvia 100 mg Tablet 100 mg PO QPM cholecalciferol (vitamin D3) 25 mcg (1,000 unit) Tablet 25 mcg PO BID Discharge Instructions Instructions: Ear Wax Impaction ED Additional Instructions: Please follow-up with ENT as well as your primary care physician HPI General Date/Time Provider Initiated Documentation: 05/13/24 08:41 . HPI Narrative: 63-year-old male presents with right ear wax impaction Related Data Home Medications ?Medication ?Instructions ?Recorded ?Confirmed cholecalciferol (vitamin D3) 25 25 mcg PO BID 05/16/23 05/13/24 mcg (1,000 unit) tablet sitagliptin phosphate 100 mg 100 mg PO QPM 05/16/23 05/13/24 tablet (Januvia) aspirin 81 mg tablet,delayed 81 mg PO DAILY 01/24/24 05/13/24 release (Adult Aspirin Regimen) empagliflozin 25 mg tablet 25 mg PO DAILY 01/24/24 05/13/24 (Jardiance) glipizide 2.5 mg tablet 2.5 mg PO BID 01/24/24 05/13/24 metoprolol tartrate 25 mg tablet 25 mg PO Q8H 01/24/24 05/13/24 ezetimibe 10 mg tablet 10 mg PO DAILY 05/13/24 05/13/24 rosuvastatin 40 mg tablet 40 mg PO DAILY 05/13/24 05/13/24 Allergies Allergy/AdvReac Type Severity Reaction Status Date / Time No Known Allergies Allergy Unverified 05/13/24 08:32 General Stated Complaint: EarProblem LILIANA: 5 Exam Narrative Exam Narrative: Alert oriented interactive no acute distress Speak membranes tolerating secretions Impacted wax right external auditory canal, normal left ear canal with visible TM Cranial nerves intact moving extremities no change in speech no ataxia Course Vital Signs Vital signs: Vital Signs Temperature 36.7 C 05/13/24 08:30 Pulse 83 05/13/24 08:30 Respiratory Rate 20 05/13/24 08:30 Blood Pressure 138/104 H 05/13/24 08:30 Pulse Oximetry 96 05/13/24 08:30 Temperature 36.7 C 05/13/24 08:30 Temperature Source Skin 05/13/24 08:30 Pulse 83 05/13/24 08:30 Respiratory Rate 20 05/13/24 08:30 Blood Pressure 138/104 H 05/13/24 08:30 Blood Pressure Position Sitting 05/13/24 08:30 Pulse Oximetry 96 05/13/24 08:30 Oxygen Delivery Method Room Air 05/13/24 08:30 Oxygen Flow Rate 0 05/13/24 08:30 Pain Level 0 05/13/24 08:30 Medical Decision Making 63-year-old male presents with right earwax impaction, neurologically intact hemodynamically stable nontoxic, will instill hydrogen peroxide will manually disimpact external canal with curette 10: 28 after instilling hydrogen peroxide into ear was able to remove some of the softer wax however patient still has large cerumen burden. Will refer to ENT for close follow-up Quality:SDOH Health Related Social Needs: No Data to Display PFSH All Active Problems (Updated 05/13/24 @ 10:28 by Clark Mcgowan MD) Cerumen impaction (Acute) History of [place] (myocardial infarction) (Acute) Elevated cholesterol (Chronic) HTN (hypertension) (Chronic) Type 2 diabetes mellitus not at goal (Acute) Bipolar 1 disorder (Acute) Nevus (Acute) Neoplasm of unspecified behavior of bone, soft tissue, and skin (Acute) DVT prophylaxis (Acute) Urine finding (Acute) Discharge planning issues (Acute) Major depression, recurrent (Acute) Suicide attempt (Acute) History of suicide attempt (Chronic) Medical History (Updated 05/13/24 @ 10:28 by Clark Mcgowan MD) Gallstone pancreatitis Bipolar disorder Depression Surgical History (Updated 01/26/24 @ 22:21 by Shabana Buitrago DO) S/P laparoscopic cholecystectomy S/P CABG x 3 S/P cataract surgery Family History Mother Suicide Social History Smoking/Tobacco Use Status: Never Smoking risk assessment performed?: Yes Alcohol Intake: never Substance use type: does not use Housing: apartment Do you feel safe in your relationship?: Yes
--- NOTE | 2024-05-13 10:32 | NUR.NOTE ---
Nursing Note: PT needs follow up in one week with ENT for impacted cerumen. Palak, ED
[2024-05-13 10:36] VITALS: BP 138/104; PULSE 83; RESP 20; TEMP 36.7; O2SAT 96
[2024-05-13] MEDS: Acetaminophen 325 MG TAB 650 MG PO (10:37)
== END 2024-05-13 10:50 | disposition home or self-care (01) ==
PROVIDERS: Emergency Provider Emergency Medicine; PCP Nurse Practitioner Family
DX: H61.21 Impacted cerumen, right ear (principal); I25.10 Atherosclerotic heart disease of native coronary artery without angina pectoris; I25.2 Old myocardial infarction; Z95.1 Presence of aortocoronary bypass graft; Z79.82 Long term (current) use of aspirin; Z79.84 Long term (current) use of oral hypoglycemic drugs; E11.9 Type 2 diabetes mellitus without complications
CPT/HCPCS: 99283

== ENCOUNTER 2025-03-02 02:35 | Outpatient (CLI) | payer MEDICARE, MEDICAID, SELFPAY ==
--- NOTE | 2025-03-02 07:15 | DI.CT_ITS ---
Exam(s) CT CHEST W EXAM: CT CHEST W CLINICAL HISTORY: SCC skin, large left posterior shoulder for 5 yrs. TECHNIQUE: Imaging Protocol: Axial computed tomography images with coronal and sagittal reformatted images were created and reviewed. Computer aided detection (CAD) was utilized. CONTRAST MATERIAL: Intravenous: Omnipaque 350 Contrast volume:70 ml. COMPARISON: CR,XR XR PORTABLE CHEST AP from 05/16/2023 FINDINGS: Pulmonary parenchyma: No consolidation. No dominant measurable mass. Tracheobronchial tree: No bronchiectasis or mucous plugging. Mediastinum and Natasha: No dominant adenopathy or fluid collection. Pleura: No effusion. No pneumothorax. Heart: The heart is not dilated. Status post CABG. Aorta: Thoracic aorta non-dilated. Mild atherosclerotic changes. Pulmonary arteries: No gross evidence of emboli. Upper abdomen: Hepatic steatosis Bones: Degenerative changes in the spine. Soft tissues: Unremarkable. No visible mass. IMPRESSION: No evidence of metastatic disease or other acute abnormality. RADIATION DOSE DELIVERED: 110.73mGy.cm Total DLP DATA REPOSITORY: All CT scans at this facility are submitted to the National Radiology Data Registry (NRDR) Dose Index Registry (DIR) with the [employer] ([employer]). RADIATION OPTIMIZATION: All CT scans at this facility use at least one of these dose optimization te chniques: automated exposure control; mA and/or kV adjustment per patient size (includes targeted exa ms where dose is matched to clinical indication); or iterative reconstruction.
[2025-03-02 13:39] LABS: BUN 19 mg/dL (7-18); CREATININE 1.3 mg/dL (0.70-1.30); Estimated GFR 62.11 (mL/min/1.73m2)
[2025-03-02] MEDS: Normal Saline - Diluent 50 ML VIAL IJ (14:04)
[2025-03-02] MEDS: Omnipaque 350 MG/ML 500 ML BTL-Imaging package IJ (14:05)
== END 2025-03-02 02:55 ==
LOC: DI 02:35
PROVIDERS: PCP Nurse Practitioner Family; Visit Provider Physician Assistant
DX: C44.92 Squamous cell carcinoma of skin, unspecified (principal)
CPT/HCPCS: 84520; 71260; 82565

== ENCOUNTER 2025-07-07 18:04 | Outpatient (REF) | payer MEDICARE, MEDICAID, SELFPAY ==
[2025-07-07 19:08] LABS: Abs Immature Grans 0.01 10^3/uL (0.0-0.06); HCT 46.4 % (40.0-50.0); HGB 15.6 g/dL (13.5-17.5); Immature Grans % 0.1 %; MCH 29.3 pg (27.0-33.0); MCHC 33.6 % (32.0-36.0); MCV 87 fL (80-95); MPV 11.3 fL (8.0-11.0); Platelet Count 144 10^3/uL (130-400); RBC 5.33 10^6/uL (4.36-5.78); RDW 13.2 % (11.8-14.1); RDW-SD 42.0 fL; WBC 6.83 10^3/uL (4.4-10.8)
[2025-07-07 19:22] LABS: Hemoglobin A1C 8.4 % (<5.7)
[2025-07-07 19:39] LABS: ALT 59 U/L (16-63); AST 40 U/L (15-37); Albumin 4.5 g/dL (3.4-5.0); Alkaline Phosphatase 69 U/L (46-116); Anion Gap 10.8 mmol/L (3-11); BUN 19 mg/dL (7-18); Bilirubin, Total 2.6 mg/dL (0.2-1.0); CO2 26.2 mmol/L (21.0-32.0); Calcium 9.8 mg/dL (8.5-10.1); Chloride 104 mmol/L (98-107); Estimated GFR 75.43 (mL/min/1.73m2); Glucose 96 mg/dL (74-106); Potassium 4.1 mmol/L (3.5-5.1); Sodium 141 mmol/L (136-145); TSH (W/Ref FT4) 3.53 uIU/mL (0.36-3.74); Total Protein 7.2 g/dL (6.4-8.2); Vitamin D 25 Total 7 ng/mL (30-100)
[2025-07-07 19:53] LABS: COMMENT (LAB VIEW ONLY) 111.06 mg/dL; Microalb ug/mg Crea 10.2 ug/mg Cr
[2025-07-10 10:29] LABS: HIV-1/2 Ag & Ab Screen Negative (Negative)
[2025-07-10 10:40] LABS: PSA, Screening 0.6 ng/mL (<=4.5)
[2025-07-10 10:43] LABS: Hepatitis C Ab w Rflx HCV PCR Negative (Negative)
== END 2025-07-07 18:05 | disposition home or self-care (01) ==
LOC: NCHCN 18:04
PROVIDERS: PCP Nurse Practitioner Family; Visit Provider Nurse Practitioner Family
DX: E11.65 Type 2 diabetes mellitus with hyperglycemia (principal); E55.9 Vitamin D deficiency, unspecified; R39.198 Other difficulties with micturition; E78.00 Pure hypercholesterolemia, unspecified; Z00.00 Encounter for general adult medical examination without abnormal findings; R53.83 Other fatigue
CPT/HCPCS: 80053; 82306; 84153; 86803; 87389; 82043; 82570; 83036; 84443; 85025

== ENCOUNTER 2025-10-02 17:40 | Outpatient (REF) | payer MEDICARE, MEDICAID, SELFPAY ==
[2025-10-02 19:31] LABS: Bilirubin, Direct 0.8 mg/dL (<=0.3); Bilirubin, Total 2.0 mg/dL (0.2-1.2)
[2025-10-02 19:48] LABS: Hemoglobin A1C 7.6 % (<5.7)
== END 2025-10-02 17:41 | disposition home or self-care (01) ==
LOC: NCHCN 17:40
PROVIDERS: PCP Nurse Practitioner Family; Visit Provider Nurse Practitioner Family
DX: E11.65 Type 2 diabetes mellitus with hyperglycemia (principal); E80.6 Other disorders of bilirubin metabolism
CPT/HCPCS: 82247; 82248; 83036